=== PATIENT | male | born 1950 | race African-American/Black ===

== ENCOUNTER → 2016-10-04 10:04 | Outpatient (CLI) | payer MEDICARE, BC ==
[2016-08-16 08:43] VITALS: BMI 27.7
[~2016-10-04 10:04] MED LIST: BAYER CHEWABLE81 MG PO; COREG 3.1253.125 MG PO; COUMADIN5 MG PO; FOLBEE PLUS TAB1 TAB PO; HYDROCODONE-APA1 TAB PO; PACERONE200 MG PO; PLAVIX75 MG; RENVELA800 MG PO; SENSIPAR60 MG PO; ZOCOR40 MG PO
== END | disposition home or self-care (01) ==
LOC: D.US 10:04
DX: R22.1 Localized swelling, mass and lump, neck (principal)

== ENCOUNTER 2017-02-08 12:55 | Day surgery (SDC) | payer MEDICARE, BC ==
[~2017-02-08] VITALS: Ht 177.8 cm; Wt 84.1 kg
--- NOTE | ~2017-02-08 | OP ---
PATIENT NAME: COLTEN DENG MEDICAL RECORD: [id number] :48 LOCATION:D.OPS ADMISSION DATE: SURGEON: VITA ABRAMS DO DATE OF OPERATION: 02/08/2017 PROCEDURE: Colonoscopy. INDICATION FOR PROCEDURE: Hematochezia and hemorrhoids. SCOPE: Olympus video pediatric colonoscope. MEDICATIONS: Propofol 320 mg IV per anesthesia. WITHDRAWAL TIME: 6 minutes. ESTIMATED BLOOD LOSS: Zero. COMPLICATIONS: None. FINDINGS: Informed consent was given. The patient was made comfortable with the above medication. After reaching an adequate level of sedation by slow IV push, the patient was placed on his left side. A digital rectal examination was performed and was normal other than the findings of external hemorrhoids, which were not bleeding. The endoscope was then advanced under direct visualization through the anus to the cecum, with visualization of the appendiceal orifice and ileocecal valve. The scope was slowly withdrawn and the mucosa was carefully examined. Retroflexion was performed in the rectum. There was evidence of mild diverticulosis of the left side of the colon. There were no polyps, ulcerations, or other abnormalities within the mucosa. On retroflexion in the rectum, there were medium to large internal hemorrhoids, which were not bleeding and showed no bleeding stigmata. The endoscope was withdrawn from the patient. The patient tolerated the procedure well and there were no complications. IMPRESSION: 1. Left-sided mild diverticulosis involving the descending and sigmoid colon. 2. Internal and external hemorrhoids, which are not bleeding. PLAN AND RECOMMENDATIONS: 1. Discharge home when recovery parameters are met. 2. High fiber diet. 3. Continue current medications. 4. Consider surgical referral if the patient would like regarding the size of his hemorrhoids and occasional symptoms. 5. Recall colonoscopy in 5-7 years for colon cancer screening purposes. TRANSINT:[id number] Voice Confirmation ID: [id number] DOCUMENT ID: [id number] OPERATIVE REPORT [id number] COLTEN DENG VITA ABRAMS DO CC: [id number] DICTATION DATE: 02/08/17 1544 PLUG MACHINE OPERATOR: 02/09/17 0124 [facility] 02/08/17 [place] [address]
[2017-02-08 14:35] LABS: BASOPHILS 0.4 % (0-2); EOSINOPHILS 5.2 % (0-7); HEMATOCRIT 32.8 % (42.0-54.0); HEMOGLOBIN 10.4 g/dL (13.5-17.5); IMMATURE GRANULOCYTES 0.2 % (0-5); LYMPHOCYTES 16.6 % (15-50); MCH 33.4 pg (26.0-34.0); MCHC 31.7 g/dL (31.0-37.0); MCV 105.5 fL (80.0-100.0); MEAN PLATELET VOLUME 9.2 fL (7.4-10.4); MONOCYTES 7.8 % (2-11); NEUTROPHILS 69.8 % (40-80); RBC 3.11 10x6/uL (4.20-6.10); RDW 14.6 % (11.5-14.5); WBC 5.4 10x3/uL (4.8-10.8)
[2017-02-08 14:50] LABS: PLATELET COUNT 237 10x3/uL (130-400)
[2017-02-08 14:55] VITALS: BP 187/66; Ht 177.8 cm; Wt 84.1 kg
[2017-02-08 15:10] LABS: ANION GAP 15.4 mmol/L (8-16); CALCIUM 9.8 mg/dL (8.5-10.1); CARBON DIOXIDE 28.8 mmol/L (21.0-32.0); CREATININE - SERUM 6.8 mg/dL (0.6-1.3); POTASSIUM - SERUM 4.2 mmol/L (3.5-5.1)
--- NOTE | 2017-02-08 16:15 | NUR ---
1550-RECD TO ROOM FROM GI LAB. ALERT. IV PATENT TO HEMOSPLIT. RESP WITH EASE. 1600-FULL LIQUID RENAL TRAY SERVED. DAUGHTER THREW HEMOSPLIT CAP IN SHARPS CONTAINER. REPLACEMENT ORDERED.
--- NOTE | 2017-02-08 17:34 | NUR ---
1650-HEMOSPLIT FLUSHED WITH 1.8CC OF HEPARIN AND NEW BLUE CAP PLACED TO HEMOSPLIT. 1700-DISHCARGE INSTRUCTIONS REVIEWED. 1710-D/C HOME AMBULATORY PER REQUEST.
== END 2017-02-08 17:10 | disposition home or self-care (01) ==
LOC: D.OPS 12:55
PROVIDERS: Anesthesiology
DX: K57.30 Diverticulosis of large intestine without perforation or abscess without bleeding (principal); K64.8 Other hemorrhoids; K64.4 Residual hemorrhoidal skin tags

== ENCOUNTER 2017-03-01 20:00 | Emergency (ER) | payer MEDICARE, BC ==
[2017-02-08 14:55] VITALS: BMI 26.6
[2017-03-01 22:20] LABS: BASOPHILS 0.4 % (0-2); EOSINOPHILS 7.2 % (0-7); HEMATOCRIT 32.7 % (42.0-54.0); HEMOGLOBIN 10.2 g/dL (13.5-17.5); IMMATURE GRANULOCYTES 0.1 % (0-5); LYMPHOCYTES 20.3 % (15-50); MCHC 31.2 g/dL (31.0-37.0); MCV 105.8 fL (80.0-100.0); MONOCYTES 6.9 % (2-11); NEUTROPHILS 65.1 % (40-80); PLATELET COUNT 237 10x3/uL (130-400); RBC 3.09 10x6/uL (4.20-6.10); RDW 14.9 % (11.5-14.5); WBC 7.1 10x3/uL (4.8-10.8)
[2017-03-01 22:37] LABS: ALBUMIN 3.5 g/dL (3.4-5.0); ALKALINE PHOSPHATASE 63 U/L (46-116); ALT (SGPT) 14 U/L (10-68); CALC OSMOLALITY 276 mosm/kg (275-300); CALCIUM 9.3 mg/dL (8.5-10.1); CARBON DIOXIDE 27.8 mmol/L (21.0-32.0); CHLORIDE - SERUM 98 mmol/L (98-107); CREATININE - SERUM 7.7 mg/dL (0.6-1.3); GLUCOSE 84 mg/dL (74-106); POTASSIUM - SERUM 4.4 mmol/L (3.5-5.1); PROTEIN - SERUM 8.1 g/dL (6.4-8.2); SODIUM 137 mmol/L (136-145); UREA NITROGEN 24 mg/dL (7-18); eGFR NON AFRICAN AMERICAN 7 mL/min (90-120)
[2017-03-01 22:48] LABS: CHOLESTEROL, TOTAL 94 mg/dL (0-200); CKMB 0.7 U/L (0.0-3.6); CREATINE KINASE 60 UL (21-232); HDL CHOLESTEROL 46 mg/dL (32-96); LDL CHOLESTEROL 32 mg/dL (0-100); LDL-HDL RATIO 0.7 ratio (1.5-3.5); TRIGLYCERIDE 80 mg/dL (30-200); TROPONIN-I 0.019 ng/mL (0.000-0.060)
== END 2017-03-02 00:15 | disposition home or self-care (01) ==
LOC: D.ER 20:00
PROVIDERS: Emergency Medicine
DX: R07.9 Chest pain, unspecified (principal); R00.2 Palpitations; N18.6 End stage renal disease; Z99.2 Dependence on renal dialysis

== ENCOUNTER 2017-04-13 09:35 | Inpatient (IN) | payer MEDICARE, BC ==
[~2017-04-13] VITALS: Ht 177.8 cm; Wt 81.6 kg
--- NOTE | ~2017-04-13 | HP ---
PATIENT: COLTEN DENG MEDICAL RECORD: [id number] ACCOUNT: [id number] LOCATION:[facility]- : 48 ADMISSION DATE: 04/13/17 HISTORY AND PHYSICAL EXAMINATION He has a vascular rupture of his right upper extremity brachiobasilic transposed AV fistula. HISTORY OF PRESENT ILLNESS: This is a nice gentleman that had angioplasty of his dialysis access. He has a significant hematoma and swelling. I spoke with Dr. Dan about surgical intervention, which is being arranged. 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 REVIEW OF SYSTEMS: Pain related to his arm and swelling, but no chest pain, shortness of breath, nausea, vomiting or diarrhea. All other review of systems are negative. PAST MEDICAL HISTORY: 1. End-stage renal disease, on dialysis greater than 10 years with multiple dialysis access placements and interventions, currently with a right upper extremity transposed brachiobasilic AV fistula placed by Dr. Lowry. He was concerned about intervention today and requested that Colten go to [facility]. 2. Anemia of CKD. 3. Chronic back pain with degenerative joint disease without possible intervention, has seen multiple pain specialists, neurosurgeons and orthopedists. 4. Hyperphosphatemia. 5. Secondary hyperparathyroidism. 6. Right hand carpal tunnel release surgery. PAST SURGICAL HISTORY: As above. ALLERGIES: He does not recall any allergies, but we will confirm. SOCIAL HISTORY: No tobacco, alcohol or illicit drugs. He is , on dialysis 3 days a week. PHYSICAL EXAMINATION: VITAL SIGNS: Blood pressure 142/72, 72 heart rate, 18 respiratory rate. GENERAL: He is alert and oriented times 3. HEENT: Normocephalic, atraumatic. Clear nares. Clear throat. No JVD or thyromegaly. EXTREMITIES: Right upper extremity edema to his hands, but no focal deficit. ABDOMEN: Nontender. No lower extremity edema. NEUROLOGIC: No focal neurological deficits with cranial nerves II through XII intact. LABORATORY DATA: Pending BMP, CBC, phosphorus and INR. ASSESSMENT AND PLAN: 1. Vascular complication of his arteriovenous fistula. Dr. Dan is being consulted for vascular intervention at Colten' request. He did not wish to attend [facility]. His is here in town, is out of town at this time. 2. End-stage renal disease. We will continue his dialysis. 3. Hyperphosphatemia. We will follow his phosphorus. HISTORY AND PHYSICAL [id number] COLTEN DENG 4. Chronic degenerative joint pain and back pain. PLAN: Please see orders. TRANSINT:[id number] Voice Confirmation ID: [id number] DOCUMENT ID: [id number] DAJA FENG MD CC: [id number] DICTATION DATE: 04/13/17916 SIZING MACHINE TENDER: 04/13/17 1138 ADM IN [facility] [address] [id number]
[2017-04-13 11:14] LABS: BASOPHILS 0.2 % (0-2); HEMATOCRIT 25.5 % (42.0-54.0); HEMOGLOBIN 7.8 g/dL (13.5-17.5); IMMATURE GRANULOCYTES 0.1 % (0-5); MCH 32.1 pg (26.0-34.0); MCHC 30.6 g/dL (31.0-37.0); MCV 104.9 fL (80.0-100.0); MEAN PLATELET VOLUME 9.4 fL (7.4-10.4); MONOCYTES 4.6 % (2-11); NEUTROPHILS 68.1 % (40-80); PLATELET COUNT 237 10x3/uL (130-400); RBC 2.43 10x6/uL (4.20-6.10); RDW 14.9 % (11.5-14.5)
[2017-04-13 11:29] LABS: ANION GAP 18.3 mmol/L (8-16); APTT 38.9 SECONDS (22.8-39.4); CARBON DIOXIDE 27.2 mmol/L (21.0-32.0); CREATININE - SERUM 8.3 mg/dL (0.6-1.3); INR 1.1 (0.85-1.17); POTASSIUM - SERUM 4.5 mmol/L (3.5-5.1); PROTIME 14.1 SECONDS (11.6-15.0)
--- NOTE | 2017-04-13 14:40 | NUR ---
TRANSFER FROM OP BY W/C. OREINTED TO ROOM. CALL LIGHT IN REACH. WILL CONT. PLAN OF CARE.
--- NOTE | 2017-04-13 14:53 | NUR ---
LEAVING FOR DIALYSIS BY W/C.
[2017-04-13 15:18] VITALS: BP 176/62; BMI 25.8
--- NOTE | 2017-04-13 19:00 | NUR ---
CONSENTS SIGNED FOR SURGERY IN AM.
--- NOTE | 2017-04-13 19:30 | NUR ---
REPORT RECEIVED AND CARE ASSUMED. SITTING IN CHAIR AT BEDSIDE. ASSESSMENT COMPLETED PER FLOW SHEET. CALL LIGHT IN EASY REACH.
[2017-04-13 20:00] VITALS: BP 149/96
--- NOTE | 2017-04-13 22:45 | NUR ---
RIGHT INFUSAPORT ACCESSED WITH #[id number] NI NEEDLE PER DIANNA LOUISE RN.
--- NOTE | 2017-04-13 22:58 | NUR ---
NORCO 10/325 MG PO GIVEN FOR LEFT SIDE AND RIGHT ARM PAIN AT LEVEL #8.
[2017-04-14] VITALS: BP 139/52
[2017-04-14 04:00] VITALS: BP 130/76
--- NOTE | 2017-04-14 07:28 | NUR ---
0715- GAVE PT PRE-OP MEDICATIONS ORDERED WITH SIP OF WATER. PT STATES HE HAS NOT HAD ANYTHING TO EAT OR DRINK SINCE MIDNIGHT. WILL AWAIT SURGERY TO GET PT AND CONTINUE TO MONITOR. 0729- PT TO OR VIA BED.
[2017-04-14 10:49] VITALS: Ht 177.8 cm; Wt 81.6 kg
--- NOTE | 2017-04-14 11:13 | NUR ---
PT BACK FROM OR VIA BED. RECEIVED REPORT FROM EDWIN IN OR. PTS RIGHT ARM (WHERE AVF IS) IS ELEVATED ORDERED BY DR. CHUNG (PER EDWIN). CLEAN, DRY, AND INTACT DRESSING SEEN TO RIGHT ARM. PT DENIES ANY PAIN AT CURRENT TIME. BED IS IN LOW POSITION AND CALL LIGHT IS IN REACH, DENILSON BURNS IS IN PTS ROOM NOW GETTTING VITAL SIGNS. WILL CONTINUE TO MONITOR.
[2017-04-14 12:39] VITALS: BP 97/74
[2017-04-14 14:01] LABS: BASOPHILS 0.4 % (0-2); HEMATOCRIT 26.9 % (42.0-54.0); HEMOGLOBIN 8.6 g/dL (13.5-17.5); IMMATURE GRANULOCYTES 0.1 % (0-5); LYMPHOCYTES 12.8 % (15-50); MCH 31.9 pg (26.0-34.0); MEAN PLATELET VOLUME 8.7 fL (7.4-10.4); MONOCYTES 5.3 % (2-11); NEUTROPHILS 73.4 % (40-80); RDW 16.4 % (11.5-14.5); WBC 7.3 10x3/uL (4.8-10.8)
[2017-04-14 14:09] LABS: MCV 99.6 fL (80.0-100.0); PLATELET COUNT 167 10x3/uL (130-400)
[2017-04-14 14:11] LABS: CALCIUM 9.1 mg/dL (8.5-10.1); CARBON DIOXIDE 28.3 mmol/L (21.0-32.0); POTASSIUM - SERUM 4.3 mmol/L (3.5-5.1)
[2017-04-14 15:46] VITALS: BP 126/73
--- NOTE | 2017-04-14 18:28 | NUR ---
PT IS CURRENTLY SITTING UP IN BED WITH EYES OPEN RESTING. PER BIPIN MONTENEGRO PT IS REQUESTING SOMETHING FOR PAIN. RIGHT ARM IS ELEVATED ON PILLOWS. WILL SEE WHAT PT HAS FOR PAIN AND CONTINUE TO MONITOR.
[2017-04-14 20:00] VITALS: BP 158/37
[2017-04-15] VITALS: BP 114/37
--- NOTE | 2017-04-15 00:29 | NUR ---
VSS. PT DENIES ANY DISCOMFORT AT THIS TIME. WILL CONTINUE TO MONITIOR.
--- NOTE | 2017-04-15 01:18 | NUR ---
PALPABLE R RADIAL PULSE. PT DENIES ANY DISCOMFORT AT THIS TIME.
--- NOTE | 2017-04-15 03:31 | NUR ---
PT RESTING WITH EYES CLOSED. RESP EVEN AND REGULAR. SR UP X2,CALL LIGHT WITHIN REACH.
[2017-04-15 04:00] VITALS: BP 83/56
--- NOTE | 2017-04-15 06:14 | NUR ---
VSS. PT STATED BUPRENEX ALLEVIATED R ARM PAIN AND NORCO HELPED SORE THROAT. PALPABLE R RADIAL PULSE. NEEDS MET; WILL CONTINUE TO MONITOR.
[2017-04-15 06:52] LABS: BASOPHILS 0.3 % (0-2); EOSINOPHILS 11.6 % (0-7); HEMATOCRIT 23.9 % (42.0-54.0); IMMATURE GRANULOCYTES 0.2 % (0-5); LYMPHOCYTES 14.2 % (15-50); MCH 30.8 pg (26.0-34.0); MCV 99.6 fL (80.0-100.0); MEAN PLATELET VOLUME 9.2 fL (7.4-10.4); MONOCYTES 6.1 % (2-11); NEUTROPHILS 67.6 % (40-80); PLATELET COUNT 178 10x3/uL (130-400); RDW 15.9 % (11.5-14.5); WBC 5.8 10x3/uL (4.8-10.8)
[2017-04-15 06:53] LABS: HEMOGLOBIN 7.4 g/dL (13.5-17.5)
[2017-04-15 07:07] LABS: CALCIUM 9.1 mg/dL (8.5-10.1); CARBON DIOXIDE 27.7 mmol/L (21.0-32.0); CREATININE - SERUM 9.8 mg/dL (0.6-1.3); POTASSIUM - SERUM 4.7 mmol/L (3.5-5.1); THYROID STIMULATING HORMONE 1.12 uIU/mL (0.36-3.74)
--- NOTE | 2017-04-15 07:41 | NUR ---
0715-AM ROUNDING DONE WITH PATIENT ASLEEP IN THE CHAIR. AROUSES EASILY WHEN I WALK IN. DENIES NEEDS AT PRESENT TIME. ON ROOM AIR. LEFT CHEST HEMIPSILT SEEN ALONG WITH RIGHT IP. BOTH ARE SALINE LOCK. WILL CPOC.
[2017-04-15 08:55] VITALS: BP 158/55
--- NOTE | 2017-04-15 09:03 | OP ---
PATIENT NAME: COLTEN DENG MEDICAL RECORD: [id number] :48 LOCATION:D.M2 D.2111 ADMISSION DATE:04/13/17 SURGEON: DELANEY CLEVELAND MD DATE OF OPERATION: 04/14/2017 PREOPERATIVE DIAGNOSES: Dialysis access failure with other mechanical complication of right arm brachial artery to translocated basilic vein AV fistula, with a recent vascular rupture at the site of balloon dilatation of a swing segment stenosis, with subsequent development of a very large pseudoaneurysm and extensive edema of the upper extremity. OPERATION PERFORMED: Percutaneous ultrasound directed guidance with access with micropuncture technique and performance of a fistulogram followed by ligation of AV fistula. SURGEON: Delaney Cleveland MD ANESTHESIA: General per EVIDENCE SPECIALIST with LMA. REFERRING PHYSICIAN: Daja Singh MD. PREOPERATIVE NOTE: Mr. Deng is a 67-year-old male from [place], who has had numerous dialysis access operations and failures, several on the left side and then more recently, I believe in October of this year, he had a brachiobasilic AV fistula created over at [facility] by Dr. Lowry and then later in the year, I believe in January, a translocation operation was performed with elevation of the basilic vein into the immediately subcutaneous level just beneath the long medial arm incision. That fistula has not yet been utilized for dialysis as it was slow to mature and he is dialyzing still with a tunneled central catheter, presently with a TVC via the left internal jugular vein. A couple of weeks ago, he had a fistulogram at [facility] and was found to have a severe swing segment stenosis, which was dilated and subsequently, he developed a large pseudoaneurysm in his arm and extensive swelling in the upper extremity. He had a fistulogram repeated yesterday by Dr. Singh, who found a very large pseudoaneurysm and due to the angulation, was unable to cross the origin of the PA with a wire in order to be able to place a stent. He was admitted to the hospital and I was consulted. He is brought back to the operating room at this time to see if I can cross the area of stenosis at the mouth of the pseudoaneurysm using a guidewire and catheter from an arm approach and if that is not possible, then perhaps from a femoral approach. Then, possibly the fistula might be salvaged by stenting with a covered stent to close the pseudoaneurysm. If not, I consider the patient a pretty high risk for severe hemorrhage with open operative attempt to revise the fistula with repair of the pseudoaneurysm and so I would plan to ligate it. Under anesthesia, the patient was placed in supine position, prepped and draped in a sterile manner. The arm was examined with ultrasound and the course of the vein identified just beneath the incision scar. I accessed the fistula just above yesterday's puncture site directing a micropuncture needle medially or proximally and placed a 4-Niuean cannula and performed a fistulogram and had very little actual visualization of the central veins and difficulty in seeing the exact anatomy of the neck of the pseudoaneurysm. I exchanged for a 6-Niuean introducer and repeated contrast injections with digital subtraction better demonstrated the pseudoaneurysm neck. I was unable to cross it initially with an angled glide catheter and Glidewire, but was successful in crossing it with OPERATIVE REPORT [id number] COLTEN DENG an angled Glidewire with a [employer] guiding catheter. Contrast injection then medially demonstrated mild stenosis without hemodynamic significance of the right brachiocephalic vein. There is a venous access port in placed on the right with that catheter in the right atrium and the patient's left internal jugular tunneled dialysis catheter is positioned suboptimally with its tip really in the superior vena cava just proximal to the confluence of the brachiocephalic veins. I then measured the required length of any stent, which will be use to close the pseudoaneurysm and the diameter of the vein proximally and distally and found that really we did not have in stock a PTFE covered stent of suitable dimensions and the decision was made to ligate the fistula. I accessed it then again percutaneously from a more medial site directing the micropuncture needle distally or retrograde in the fistula and inserted another 6-Niuean introducer and then passed a guidewire distally through the fistula and arterial anastomosis into the brachial artery and right radial artery. I then inserted a glide catheter and performed a pullback angiogram to better precisely locate the position of the arterial anastomosis. When I was accomplished, I inserted a 6-mm diameter angioplasty balloon, which was 2 cm in length, inflated it just above the arterial anastomosis and with a stopcock device kept the balloon inflated to occlude the fistula. This resulted immediately and reduced pressure in the pseudoaneurysm. I then made an incision through yesterday's puncture site and through today's first puncture site and exposed the underlying vein and inflated the balloon within it. I ligated the vein doubly with 0 silk after deflating and removing the balloon catheter. All the hardware was then removed and in stable condition with good arterial flow in the right arm. The patient's wound was closed with interrupted inverted simple 3-0 Vicryl sutures and a sterile dressing applied and he was awakened and taken to the recovery room in stable condition. It is certainly unfortunate that this man, who has had such difficulties with dialysis access, had to lose his fistula really before it could be even used. I believe that he still a candidate for upper extremity access and would consider him for placement of a HeRO outflow device via the left internal jugular vein, removing the suboptimally positioned left internal jugular tunneled dialysis catheter. I would plan to use an Acuseal early stick PTFE graft so that there would be no need for bridging catheter. I think the patient probably will need to rest for at least a few days before being ready to return to the operating room. In the meantime, we are going to have him elevate his arm higher than the level of his heart whenever possible, probably on pillows when he is reclining and will be using local heat to help resolution of his hemorrhage and edema. Blood loss during the operation was only about 5 cc, none was replaced intraoperatively. All sponges, instruments and needles were accounted for. No drain was used and no surgical specimen was submitted for histopathology. TRANSINT:[id number] Voice Confirmation ID: [id number] DOCUMENT ID: [id number] DELANEY CLEVELAND MD at 0903 CC: DAJA SINGH MD [id number] DICTATION DATE: 04/14/17 112 NEW CAR INSPECTOR: 04/14/172111 ADM IN [facility] [address] [place] [address]
--- NOTE | 2017-04-15 12:56 | NUR ---
TO DIALYSIS VIA BED.
--- NOTE | 2017-04-15 14:38 | NUR ---
STILL IN DIALYSIS.
[2017-04-15 14:39] VITALS: BP 182/85
--- NOTE | 2017-04-15 15:28 | NUR ---
1520-RETURNS FROM DIALYSIS.
[2017-04-15 20:00] VITALS: BP 155/60
--- NOTE | 2017-04-15 23:27 | NUR ---
INITIAL ROUNDS COMPETED AT 1914 HRS. PT RESTING WITHEYES CLOSED. RESP EVEN AND REGULAR. ASSESSMENT COMPLETED AT 1944 HRS. VSS. L CHEST HEMOSPIT CLEAN,DRY AND INTACT. R CHEST INFUSAPORT SL. LUNGS DIMINISHED IN BASES BILAT. R ARM SWOLLEN AND TIGHT. PALPABLE R RADIAL PULSE. DRESSING TO INNER R UPPER ARM CLEAN, DRY AND INTACT. PM MEDS GIVEN INCLUDING PERCOCET AT 5 HRS. PT STATED ALTER TAHT THE PERCOCET DID NOT TOUCH HIS PAIN AND IT WAS NOW 8/10. BUPRENEX 0.2MG SIVP TO R INFUSAPORT GIVNE AT 2240 HRS. PT CURRENTLY STATES PAIN LEVEL NOW 4/10. WILL CONTINUE TO MONITOR. SR UP X2, CALL LIGHT WITHIN REACH.
[2017-04-16] VITALS: BP 132/40
--- NOTE | 2017-04-16 02:42 | NUR ---
PT SITTING ON SIDE OF BED. DENIES ANY DISCOMFORT. WILL CONTINUE TO MONITOR.
[2017-04-16 04:00] VITALS: BP 165/85
--- NOTE | 2017-04-16 04:50 | NUR ---
PT RESTING WITH EYES CLOSED. RESP EVEN AND REGULAR. SR UP X2, CALL LIGHT WITHIN REACH.
--- NOTE | 2017-04-16 06:02 | NUR ---
VSS THROUGHOTU NGT. PT STATED BUPRENEX HELPED R ARM PAIN. NEEDS MET; WILL CONTINUE TO MONTIOR.
[2017-04-16 06:08] LABS: BASOPHILS 0.3 % (0-2); EOSINOPHILS 12.9 % (0-7); HEMATOCRIT 26.2 % (42.0-54.0); HEMOGLOBIN 8.3 g/dL (13.5-17.5); IMMATURE GRANULOCYTES 0.2 % (0-5); LYMPHOCYTES 15.5 % (15-50); MCH 31.3 pg (26.0-34.0); MCHC 31.7 g/dL (31.0-37.0); MCV 98.9 fL (80.0-100.0); MEAN PLATELET VOLUME 9.3 fL (7.4-10.4); MONOCYTES 5.3 % (2-11); NEUTROPHILS 65.8 % (40-80); PLATELET COUNT 196 10x3/uL (130-400); RBC 2.65 10x6/uL (4.20-6.10); RDW 15.8 % (11.5-14.5); WBC 6.1 10x3/uL (4.8-10.8)
[2017-04-16 06:53] LABS: ANION GAP 11.2 mmol/L (8-16); CALCIUM 9.2 mg/dL (8.5-10.1); CARBON DIOXIDE 30.1 mmol/L (21.0-32.0); CREATININE - SERUM 9.2 mg/dL (0.6-1.3); POTASSIUM - SERUM 4.3 mmol/L (3.5-5.1)
--- NOTE | 2017-04-16 07:20 | NUR ---
AM ROUNDING DONE WITH PATIENT SITTING ON SIDE OF BED, DENIES NEEDS AT THIS TIME. REPORTS THAT HE SLEPT "FAIRLY WELL". LEFT HEMISPLIT SEEN WITH C/D/I DRESSING, RIGHT IP SEEN SALINE LOCK WITH C/D/I DRESSING. RIGHT ARM IS STILL WITH 3+ EDEMA. WILL CPOC.
[2017-04-16 08:00] VITALS: BP 184/99
--- NOTE | 2017-04-16 10:42 | NUR ---
WATCHING TV, DENIES NEEDS AT PRESENT TIME. WILL CONTINUE TO MONITOR AND ASSESS FOR ANY NEEDS.
[2017-04-16] MEDS ORDERED: SYNTHROID50 MCG PO (10:50)
[2017-04-16] MEDS ORDERED: PERCOCET 10/3251 TA1 PO (10:51)
[2017-04-16 12:00] VITALS: BP 189/74
--- NOTE | 2017-04-16 12:44 | NUR ---
WRITTEN SCRIPT FOR PERCOCET 10/325 MG # 20 GIVEN TO PATIENT WITH NO REFILLS.
--- NOTE | 2017-04-16 14:31 | NUR ---
SALINE FLUSH OF 10 CC THEN HEPARIN FLUSH FOR IP OF 3CC DONE. NI NEEDLE REMOVED FROM IP, CLEAN 2 X 2 AND OPSITE PLACED OVER IP. VERBAL AND WRITTEN DISCHARGE INSTRUCTIONS GIVEN TO PATIENT. DISCARGED HOME VIA WHEELCHAIR.
== END 2017-04-16 14:33 | disposition home or self-care (01) | DRG 252 ==
LOC: D.M2 09:35 → D.SDCHOLD 09:35 → D.M2 14:38
PROVIDERS: Internal Medicine; Surgery; ADMIT Internal Medicine Nephrology
PROC: B51W1ZZ Fluoroscopy of Dialysis Shunt/Fistula using Low Osmolar Contrast (ICD-10-PCS; 2017-04-14)
PROC: 05L Upper Veins, Occlusion (ICD-10-PCS; principal; 2017-04-14 08:00)
PROC: 05L Upper Veins, Occlusion (ICD-10-PCS; 2017-04-14 08:00)
DX: T82.858A Stenosis of other vascular prosthetic devices, implants and grafts, initial encounter (principal); N18.6 End stage renal disease; I12.0 Hypertensive chronic kidney disease with stage 5 chronic kidney disease or end stage renal disease; N25.81 Secondary hyperparathyroidism of renal origin; T82.398A Other mechanical complication of other vascular grafts, initial encounter; E03.9 Hypothyroidism, unspecified; Z99.2 Dependence on renal dialysis; D63.1 Anemia in chronic kidney disease; Z95.1 Presence of aortocoronary bypass graft; I48.2 Chronic atrial fibrillation; M19.90 Unspecified osteoarthritis, unspecified site

== ENCOUNTER 2017-05-02 07:52 | Outpatient (CLI) | payer MEDICARE, BC ==
[~2017-05-02] VITALS: Ht 177.8 cm; Wt 81.8 kg
--- NOTE | ~2017-05-02 | HEMODYNAMI ---
PATIENT:COLTEN DENG MEDICAL RECORD: [id number] : 48 LOCATION:[facility] ADMISSION DATE: 05/02/17 Generatedon:05/02/201711:16 Patient name: COLTEN DENG Patient #: [id number] SSN: [id number] : 1950 Date of study: 05/02/2017 Page: Of Hemodynamic Procedure Report Patient Data Patient Demographics Procedure consent was obtained First Name: COLTEN Gender: Male Last Name: SOWMYA : 1950 [facility] Initial: TORRI Age: 67 year(s) Patient #: [id number] Race: Black SSN: [id number] Additional ID: [id number] Contact details Address: [facility] [place] [id number] State: [place] City: [place] Zip code: [address] Past Medical History Allergies Allergen Reaction Date Comments Reported Penicillins 08/16/2016 Admission Admission Data Admission Date: 05/02/2017 Admission Time: 7:52 Procedure Procedure Types Cath Procedure Diagnostic Procedure LHC LHC w/Coronaries w/Grafts PCI Procedure Coronary Stent Initial Miscellaneous Procedures Moderate Sedation up to 15 minutes Procedure Description Procedure Date Procedure Date: 05/02/2017 Procedure Start Time: 10:58 Procedure End Time: 11:14 Procedure Staff Name Function Lucian Ortiz MD Performing Physician Dano Jiménez RN Nurse Ana Tang RT Monitor Jermaine Doll RT Scrub Procedure Data Cath Procedure Fluoroscopy Diagnostic fluoroscopy Total fluoroscopy Time: 3.9 time: 3.9 min min Diagnostic fluoroscopy Total fluoroscopy dose: 713 dose: 713 mGy mGy Contrast Material Contrast Material Type Amount (ml) Isovue 300 114 Entry Location Entry Primary Successful Side Size Upsize Upsize Entry Closure Succes sful Closure Location (Fr) 1 (Fr) 2 (Fr) Remarks Device Remarks Femoral Right 5 Fr 6 Fr Exoseal artery Short Estimated blood loss: 10 ml Diagnostic catheters Device Type Used For End Catheter Placement Cordis 5Fr Pigtail LV Angiography Catheter (MP) Cordis 5Fr 3DRC Catheter Procedure (MP) Cordis 5Fr JL 4.0 Procedure Catheter (MP) Procedure Complications No complications Procedure Medications Medication Administration Route Dosage Oxygen NC 2 l/min Heparin Flush Bag added to field 2 bags (1000units/500ml NS) 0.9% NaCl I.V. 100 ml/hr Fentanyl I.V. 50 mcg Versed I.V. 1 mg Fentanyl I.V. 50 mcg Versed I.V. 1 mg Heparin Bolus I.V. 4000 units Hemodynamics Rest Heart Rate: 76 (bpm) Snapshots Pre Cath Intra NCS Post Cath Vital Signs Time Heart Resp SPO2 NIBP (mmHg) Rhythm Pain Sedation Rate (ipm) (%) Status Level (bpm) 10:50:35 73 20 100 223/116(172) NSR 0 (11) 10(A) , No pain 11:00:13 72 17 100 241/83(151) NSR 0 (11) 9(A) , No pain 11:06:28 70 16 100 234/98(180) NSR 0 (11) 9(A) , No pain 11:14:54 75 18 100 242/103(148) NSR 0 (11) 9(A) , No pain Medications Time Medication Route Dose Verified Delivered Reason Notes Effectiveness by by 10:48:57 Oxygen NC 2 Dano Lindquisty Per physician l/min Tino Jiménez RN RN 10:49:06 Heparin Flush added 2 Dano Dano used for Bag to bags Tino Jiménez RN procedure (1000units/500ml field RN NS) 10:49:14 0.9% NaCl I.V. 100 Dano Dano Per physician ml/hr Tino Jiménez RN RN 10:57:06 Fentanyl I.V. 50 Dano Dano for sedation mcg Tino Jiménez RN RN 10:57:12 Versed I.V. 1 mg Dano Dano for sedation Tino Jiménez RN RN 10:59:07 Fentanyl I.V. 50 Dano Dano for sedation mcg Tino Jiménez RN RN 10:59:09 Versed I.V. 1 mg Dano Dano for sedation Tino Jiménez RN RN 11:06:12 Heparin Bolus I.V. 4000 Dano Dano for units Tino Jiménez RN anticoagulation teletypist Log Time Note 10:15:40 Dano Jiménez RN sent for patient. Start room use. 10:25:41 Time tracking: Regular hours 10:25:44 Plan of Care:Hemodynamics will remain stable., Cardiac rhythm will remain stable., Comfort level will be maintained., Respiratory function will remain adequate., Patient/ family verbilizes understanding of procedure., Procedure tolerated without complication., Recovers from procedure without complications.. 10:32:30 Patient received from Pre/Post Procedure Room to CCL 2 Alert and oriented. Tansferred to table in Supine position. 10:40:28 Warm blankets applied, and jessie hugger turned on for patient comfort. 10:40:29 Correct patient and procedure confirmed by team. 10:41:33 H&P Date Dictated: 04/25/2017 Within 30 days and on chart., H&P Addendum completed by physician on day of procedure. (MUST COMPLETE FOR ALL OUTPATIENTS). 10:41:36 Pre-procedure instructions explained to patient. 10:41:38 Family in waiting room. 10:41:40 Patient NPO since Midnight. 10:41:59 Is patient on blood thinner?Yes 10:42:02 ACC The patient was administered the following blood thiners within the last 24 hours: ACCPlavix 10:44:40 Signed procedure consent form obtained from patient. 10:44:41 ECG and BP/O2 sat monitors applied to patient. 10:47:56 Vital chart was started 10:48:57 Oxygen 2 l/min NC was administered by Dano Jiménez RN; Per physician; 10:49:06 Heparin Flush Bag (1000units/500ml NS) 2 bags added to field was administered by Dano Jiménez RN; used for procedure; 10:49:14 0.9% NaCl 100 ml/hr I.V. was administered by Dano Jiménez RN; Per physician; 10:49:37 Baseline sample Acquired. 10:49:40 Full Disclosure recording started 10:49:52 Patient diabetic? No. 10:49:58 Snore? Yes 10:50:00 Sleep apnea? Yes 10:50:07 Dentures? No ? 10:50:36 IV patent on arrival in Lt subclavian with 0.9% NaCl at O. 10:50:43 Lab results completed and on chart. 10:50:46 Right groin area was prepped with chlora-prep and draped in sterile fashion 10:50:47 Alarms reviewed by RSher N. 10:50:48 Sharps counted by scrub and verified by R.N. 10:50:49 Physician paged 10:53:24 Physician arrived 10:53:27 --------ALL STOP TIME OUT------ 10:53:28 Final Timeout: patient, procedure, and site verified with staff and physician. All members of the team are in agreement. 10:53:30 Right groin site verified by team. 10:53:35 Sedation plan: IV Moderate Sedation Versed, Fentanyl 10:57:06 Fentanyl 50 mcg I.V. was administered by Dano Jiménez RN; for sedation; 10:57:12 Versed 1 mg I.V. was administered by Dano Jiménez RN; for sedation; 10:58:17 Vital chart was stopped 10:58:17 Vital chart was started 10:58:46 Procedure started. 10:58:50 Local anesthetic to right femoral artery with Lidocaine 2% by Lucian Ortiz MD.INITIAL ACCESS ONLY 10:58:55 Use device set Femoral Dx 10:59:07 Fentanyl 50 mcg I.V. was administered by Dano Jiménez RN; for sedation; 10:59:09 Versed 1 mg I.V. was administered by Dano Jiménez RN; for sedation; 10:59:11 A 5 Fr sheath was inserted into the Right Femoral artery 10:59:16 Zero performed for pressure channel P1 10:59:21 Zero performed for pressure channel P1 11:02:21 Acist Syringe opened to sterile field. 11:02:21 Bag Decanter opened to sterile field. 11:02:22 Medline Cath Pack opened to sterile field. 11:02:22 Terumo 5Fr [place] Sheath opened to sterile field. 11:02:22 St Dereck 260cm J .035 wire opened to sterile field. 11:02:24 Acist Hand Control opened to sterile field. 11:02:24 Acist Manifold opened to sterile field. 11:02:25 Diagnostic Infinity 5Fr Multipack catheter opened to sterile field. 11:02:25 Tegaderm 4 x 4 opened to sterile field. 11:02:32 A Cordis 5Fr Pigtail Catheter (MP) was advanced over the wire and used for LV Angiography. 11:02:41 EF : 35 % 11:02:44 Catheter removed. 11:03:00 A Cordis 5Fr JL 4.0 Catheter (MP) was advanced over the wire and used for Procedure. 11:03:12 A Cordis 5Fr 3DRC Catheter (MP) was advanced over the wire and used for Procedure. 11:03:22 ACKERMAN to LAD angiography performed. 11:03:24 RCA angiography performed. 11:03:30 SVG to RCA angiography performed. 11:03:49 SVG to Circ angiography performed. 11:04:09 Catheter removed. 11:05:23 Proceeding to intervention. 11:06:12 Heparin Bolus 4000 units I.V. was administered by Dano Jiménez RN; for anticoagulation; 11:06:40 Guidetronic Launcher 6Fr AR 1.0 guide catheter opened to sterile field. 11:06:40 Terumo 6Fr [place] Sheath opened to sterile field. 11:06:40 Deposco BasixCompak Inflation Kit opened to sterile field. 11:06:41 Willis Whisper J 300cm 0.014 guide wire opened to sterile field. 11:06:52 Sheath upsized to a 6 Fr Short. 11:07:05 6 Fr ar1 guide catheter was inserted over the wire 11:07:07 Wire advanced across lesion. 11:09:21 Inflation number: 1 The stent balloon was then re-inflated across the Aorta Left -> Prox CX to 17 HUMBERTO for 0:10 (min:sec). 11:11:51 Cordis 6Fr Exoseal opened to sterile field. 11:11:54 Stent catheter was removed intact over wire. 11:11:55 Wire removed. 11:11:56 Guide catheter removed. 11:12:10 Sheath removed intact; hemostasis achieved with Exoseal to the Right Femoral artery. 11:12:14 Procedure ended.(Physican Out) 11:12:47 Fluoroscopy time 03.90 minutes. 11:12:52 Fluoroscopy dose: 713 mGy 11:12:52 Flurop Dose total: 713 11:12:59 Contrast amount:Isovue 300 114ml. 11:13:01 Sharps counted by scrub and verified by R.N. 11:13:03 Insertion/operative site no bleeding no hematoma. 11:13:06 Post Procedure Pulses reassessed and unchanged 11:13:10 Post procedure rhythm: unchanged. 11:13:13 Vital chart was stopped 11:13:14 Vital chart was started 11:13:15 Estimated blood loss: 10 ml 11:13:16 Post procedure instruction explained to patient.Patient verbalizes understanding. 11:13:32 Procedure type changed to Cath procedure, Diagnostic procedure, LHC, LHC w/Coronaries w/Grafts, PCI procedure, Coronary Stent Initial, Miscellaneous Procedures, Moderate Sedation up to 15 minutes 11:13:33 Procedure and supply charges have been captured, reviewed, submitted and are correct. 11:13:54 Procedure Complication : No complications 11:13:58 See physician's report for complete and final results. 11:14:01 Report given to Pre/Post Procedure Room. 11:14:05 Patient transfered to Pre/Post Procedure Room with Stretcher. 11:14:08 Procedure ended. 11:14:08 Full Disclosure recording stopped 11:14:10 End room use (Document Last) 11:16:10 Vital chart was stopped Intervention Summary Intervention Notes Time ActionType Lesion and Equipment Action# Pressure Duration Attributes Used 11:09:21 Reinflate Aorta Left [place] OTW 1 17 00:10 stent -> Prox CX 4.0 x 22 balloon stent Device Usage Item Name Manufacture Quantity Catalog Hospital Part Current Minima l Lot# / Number Charge Number Stock Stock Serial# Code Acist Acist 1 36927 249383 011748 143552 20 Syringe Medical Systems Inc Bag Microtek 1 2002S 417277 64616 857508 5 Wipit [employer] Inc. Medline Cardinal 1 [id number] 406863 21928 886878 5 Cath Pack Health Terumo 5Fr Terumo 1 [id number] 015572 514013 410296 [address] St Dereck 1 [id number] 421542 769330 094225 30 260cm J .035 wire Acist Hand Acist 1 21962 281036 314013 921497 5 Control Medical Systems Inc Acist Acist 1 96252 718630 060412 962869 5 Manifold Medical Systems Inc Diagnostic Cardinal 1 [id number] 737371 63328 707733 30 Micropoint Technologiesity Lagiar 5Fr Multipack catheter Tegaderm 4 3M 1 1626W 946946 346039 575207 5 x 4 Cordis 5Fr Cardinal 1 082598 5 Pigtail Health Catheter (MP) Cordis 5Fr Cardinal 1 706936 5 3DRC Health Catheter (MP) Cordis 5Fr Cardinal 1 283238 5 JL 4.0 Health Catheter (MP) Medtronic Medtronic 1 [id number] 362064 17275 705060 1 Launcher 6Fr AR 1.0 guide catheter Terumo 6Fr Terumo 1 [id number] 694607 790368 770722 40 [place] Sheath Merit Merit 1 QN6534 185809 781691 444888 15 NetScientific Medical Inflation Kit Willis Willis 1 [id number] 323629 028000 847374 5 Whisper J Vascular 300cm 0.014 guide wire [place] OTW Medtronic 1 [id number] 555791 5058765 591347 5 [id number] 4.0 x 22 stent Cordis 6Fr Cardinal 1 EX600 888361 488763 813942 10 [facility] Signature Audit Varney Stage Time Signature Unsigned Intra-Procedure 05/02/2017 Ana Tang 11:16:06 AM RT(R) Signatures Monitor : Ana Tang Signature : RT Date : Time : [place] [address] [place] [address]
--- NOTE | ~2017-05-02 | OP ---
PATIENT NAME: COLTEN DENG MEDICAL RECORD: [id number] :48 LOCATION:D.CAT ADMISSION DATE: SURGEON: EMY MONTES DE OCA MD DATE OF OPERATION: 05/02/2017 PROCEDURES: 1. PTCA stent vein graft to the left circumflex. 2. Left heart catheterization. 3. Selective coronary angiography. 4. Vein graft angiography. 5. ACKERMAN angiography. 6. Left ventriculogram. INDICATION: Angina and coronary artery disease. PROCEDURE IN DETAIL: After informed consent was obtained and after a detailed explanation of the risks, benefits as well as alternative therapies, the patient elected to proceed with angiogram and angioplasty. The right femoral area was prepped and draped in normal sterile fashion. The right femoral artery was cannulated via modified Seldinger technique with placement of 6-Bengali sheath. All catheters were exchanged through this sheath. FINDINGS: The left ventriculogram was performed in the standard 30-degree ENGLISH view, reveals anteroapical hypokinesis, ejection fraction 35% to 40%. SELECTIVE CORONARY ANGIOGRAPHY: 1. Left main showed no significant angiographic disease. 2. Left anterior descending is totally occluded. 3. Left circumflex is totally occluded. 4. Right coronary is totally occluded. 5. ACKERMAN to the LAD is widely patent. Distal LAD is widely patent. 6. The vein graft to the circumflex is widely patent; however, there is a previously placed stent with 80% in-stent restenosis in the mid shaft. 7. The vein graft to the right coronary is widely patent. Distal right coronary is widely patent. PTCA STENT OF THE VEIN GRAFT TO THE CIRCUMFLEX: The stent used is a 4.0 x 22 mm [place] taken to 19 atmospheres. Result was 0% residual stenosis. OVERALL IMPRESSION: Successful percutaneous transluminal coronary angioplasty stent of the vein graft to the left circumflex going from 80% in-stent restenosis to 0% residual stenosis. TRANSINT:[id number] Voice Confirmation ID: [id number] DOCUMENT ID: [id number] EMY MONTES DE OCA MD CC: [id number] DICTATION DATE: 05/02/17 1112 HANDBAG FRAMES INSPECTOR: 05/02/17 1248 [facility] [address] [place] [address]
[~2017-05-02 07:52] MED LIST changes: +PERCOCET 10/3251 TA1 PO; +SYNTHROID50 MCG PO
[2017-05-02 08:30] VITALS: BP 199/89; Ht 177.8 cm; Wt 81.8 kg
[2017-05-02 08:45] LABS: BASOPHILS 0.5 % (0-2); EOSINOPHILS 10.9 % (0-7); HEMATOCRIT 26.2 % (42.0-54.0); HEMOGLOBIN 8.1 g/dL (13.5-17.5); IMMATURE GRANULOCYTES 0.2 % (0-5); LYMPHOCYTES 20.2 % (15-50); MCH 30.3 pg (26.0-34.0); MCHC 30.9 g/dL (31.0-37.0); MCV 98.1 fL (80.0-100.0); MEAN PLATELET VOLUME 8.6 fL (7.4-10.4); MONOCYTES 5.5 % (2-11); NEUTROPHILS 62.7 % (40-80); PLATELET COUNT 202 10x3/uL (130-400); RBC 2.67 10x6/uL (4.20-6.10); RDW 15.2 % (11.5-14.5); WBC 5.8 10x3/uL (4.8-10.8)
[2017-05-02 08:54] LABS: ANION GAP 9.4 mmol/L (8-16); CALCIUM 9.2 mg/dL (8.5-10.1); CARBON DIOXIDE 30.6 mmol/L (21.0-32.0); CREATININE - SERUM 8.7 mg/dL (0.6-1.3)
--- NOTE | 2017-05-02 11:40 | NUR ---
2L NC, NO RESP DISTRESS NOTED. RIGHT GROIN 6F EXOSEAL CDI, NO BLEEDING OR HEMATOAM NOTED. SYSTOLIC BP 265. DR. MONTES DE OCA NOTIFIED. NEW ORDERS REC'D.
--- NOTE | 2017-05-02 12:05 | NUR ---
CLONIDINE 0.2MG GIVEN PO PER ORDERS. SEE MAR.
--- NOTE | 2017-05-02 12:25 | NUR ---
C/O NAUSEA. ZOFRAN 4MG GIVEN SIVP PER ORDERS. SEE MAR.
--- NOTE | 2017-05-02 12:55 | NUR ---
6 FR EXOSEAL R/GROIN CDI NO BLEEDING NO HEMATOMA NOTED. CHEST PAIN IS DENIED. INSTRUCTED PATIENT TO KEEP HEAD FLAT ON PILLOW WITH RLE STRAIGHT
--- NOTE | 2017-05-02 13:50 | NUR ---
2L NC, NO RESP DISTRESS NOTED. RIGHT GROIN 6F EXOSEAL CDI, NO BLEEDING OR HEMATOMA NOTED. NO C/O PAIN OR NAUSEA. VSS. WILL CONTINUE TO MONITOR.
--- NOTE | 2017-05-02 14:28 | NUR ---
HOB ELEVATED 30 DEGREES. RIGHT GROIN 6F EXOSEAL CDI, NO BLEEDING NOTED. SANDWICH TRAY GIVEN. NO C/O NAUSEA. VSS.
--- NOTE | 2017-05-02 15:01 | NUR ---
RIGHT CHEST INFUSPORT IV D/C'D WITH CATHETER INTACT, BAND AID TO SITE. UP TO BEDSIDE TO GET DRESSED.
--- NOTE | 2017-05-02 15:18 | NUR ---
DISCHARGE INSTRUCTIONS GIVEN, VERBALIZED UNDERSTANDING.
--- NOTE | 2017-05-02 15:30 | NUR ---
TAKEN OUT VIA WHEELCHAIR BY CATH DIRECTOR OF CARDIAC CATH LAB. LEFT FACILTIY WITH FAMILY MEMBER AND ALL PERSONAL BELONGINGS.
== END 2017-05-02 15:30 | disposition home or self-care (01) ==
LOC: D.CATH 07:52
PROVIDERS: Internal Medicine Interventional Cardiology
DX: I25.119 Atherosclerotic heart disease of native coronary artery with unspecified angina pectoris (principal); T82.855A Stenosis of coronary artery stent, initial encounter; Z01.812 Encounter for preprocedural laboratory examination

== ENCOUNTER 2017-11-22 11:24 | Day surgery (SDC) | payer MEDICARE, BC ==
[~2017-11-22] VITALS: Ht 177.8 cm; Wt 84.1 kg
--- NOTE | ~2017-11-22 | OP ---
PATIENT NAME: COLTEN DENG MEDICAL RECORD: [id number] :48 LOCATION:D.OPS ADMISSION DATE: SURGEON: VITA ABRAMS DO DATE OF OPERATION: 11/22/2017 PROCEDURE: Colonoscopy with biopsies. INDICATIONS FOR PROCEDURE: Hematochezia, change in bowel habits, diarrhea, nausea, hemorrhoids. SCOPE: Olympus video pediatric colonoscope. MEDICATIONS: Propofol 430 mg IV per anesthesia. ESTIMATED BLOOD LOSS: Minimal. COMPLICATIONS: None. FINDINGS: Informed consent was given. The patient was made comfortable with the above medication. After reaching an adequate level of sedation by slow IV push, the patient was placed on his left side. A digital rectal examination was performed and was normal. The endoscope was then advanced under direct visualization through the rectum to the cecum with visualization of the appendiceal orifice and ileocecal valve. The endoscope was slowly withdrawn and mucosa was carefully examined. The prep quality was poor to fair. There was evidence of left-sided diverticulosis of moderate severity. There was no bleeding or evidence of diverticulitis. There were no polyps visualized on today's examination. Retroflexion was performed in the rectum with visualization of grade III internal hemorrhoids without bleeding. On this study, there were random biopsies taken to submit for histopathology and to rule out microscopic colitis. Stool was also collected to submit for any infectious disease, which could be causing symptoms. The endoscope was withdrawn from the patient. The patient tolerated the procedure well. There were no complications. IMPRESSION: 1. Left-sided diverticulosis. 2. Grade III internal hemorrhoids without bleeding. PLAN AND RECOMMENDATIONS: 1. Discharge home when recovery parameters are met. 2. Follow up biopsy specimen results. 3. Continue current diet. 4. Continue current medications. 5. Consider trial of cholestyramine or Imodium as needed to slow the bowels and reduce the amount of diarrhea when present. 6. Recall colonoscopy will be when previously stated from his procedure in January, which was 5-7 years from that time. TRANSINT:[id number] Voice Confirmation ID: [id number] DOCUMENT ID: [id number] OPERATIVE REPORT [id number] COLTEN DENG VITA ABRAMS DO at 1119 CC: [id number] DICTATION DATE: 11/22/17 1346 WEB MERCHANDISER: 11/22/17 1414 DEP SD 11/22/17 [facility] [address] [place] [address]
[2017-11-22 12:12] LABS: HEMATOCRIT 31.1 % (42.0-54.0); HEMOGLOBIN 9.8 g/dL (13.5-17.5); MCH 31.9 pg (26.0-34.0); MCHC 31.5 g/dL (31.0-37.0); MCV 101.3 fL (80.0-100.0); MEAN PLATELET VOLUME 9.5 fL (7.4-10.4); RBC 3.07 10x6/uL (4.20-6.10); RDW 15.8 % (11.5-14.5); WBC 5.5 10x3/uL (4.8-10.8)
[2017-11-22 12:29] VITALS: BP 168/92; Ht 177.8 cm; Wt 84.1 kg
== END 2017-11-22 14:55 | disposition home or self-care (01) ==
LOC: D.OPS 11:24
PROVIDERS: Anesthesiology
DX: K57.30 Diverticulosis of large intestine without perforation or abscess without bleeding (principal); K64.2 Third degree hemorrhoids; Z01.812 Encounter for preprocedural laboratory examination

== ENCOUNTER → 2018-01-02 07:19 | Day surgery (SDC) | payer MEDICARE, BC ==
[~2018-01-02] VITALS: Ht 177.8 cm; Wt 83.9 kg
--- NOTE | ~2018-01-02 | OP ---
PATIENT NAME: COLTEN DENG MEDICAL RECORD: [id number] :48 LOCATION:[facility] ADMISSION DATE: SURGEON: DELANEY CLEVELAND MD DATE OF OPERATION: 01/02/2018 REFERRED BY: Ferny Singh MD OPERATION PERFORMED: Implantation of 6-mm straight standard wall Propaten PTFE AV graft in loop configuration between proximal brachial artery and axillary vein on the right after right axillary venogram. SURGEON: Delaney Cleveland MD ANESTHESIA: General with LMA per INTEL ANALYST. PREOPERATIVE NOTE: Mr. Deng is a 67-year-old -Turkish male with end-stage renal disease, on chronic hemodialysis with a tunneled dialysis catheter. He also has a venous access port via the right internal jugular vein and the patient's tunneled dialysis catheter is via the left internal jugular vein. He has had a prior failed radiocephalic fistula, a prior failed proximal radial artery based fistula, and a failed basilic vein fistula. It is hoped that today we can implant a PTFE graft in that right arm. I will need to do a venogram to see if there is a central vein stenosis as he has had a long-standing Infusaport on the right side and does have also a tunneled dialysis catheter on the left. PROCEDURE: With the patient under anesthesia in supine position, his arm was prepped and draped in sterile manner. I examined him with duplex ultrasound and found no suitable veins in the forearm or the upper arm for creation of a primary fistula. The axillary vein and axillary artery were large as was the proximal brachial artery. The brachial artery just above the antecubital space was smaller of course except at the site of prior basilic vein anastomosis where there was some aneurysmal change there of the stump of vein on the artery. I elected to do a loop axillary-based fistula. I made a longitudinal incision and exposed the axillary vein and the proximal brachial artery. These vessels were controlled with Silastic loops. I made a counterincision, which was a hockey stick-shaped incision distally, just across and above the antecubital space. I chose a Propaten graft 6-mm diameter straight standard wall thickness. I beveled it and occluded the vein, opened the vein and flushed it proximally and distally with heparinized saline, and then did an end of graft to side of vein anastomosis with running 6-0 Prolene. I placed the graft in a subcutaneous tunnel, which passed downward to the counterincision area and then back upward and laterally before coming back medially to the axillary incision where that end of the graft, after being again flushed with heparinized saline, was shortened and beveled. The artery was occluded proximally and distally with Silastic loops and the artery flushed with heparinized saline proximally and distally. An end of graft to side of artery anastomosis was then done with running 6-0 Prolene. When completed and the occluding loops and clamps were released, excellent flow developed in the fistula and the suture lines were hemostatic. There was very good ulnar artery pulsatile flow by Doppler and good flow in the right palm arch. There was very weak flow detected with Doppler in the radial artery at the wrist. This is probably longstanding and associated with prior radiocephalic fistula. There was no sign of any impaired circulation in the hand. OPERATIVE REPORT [id number] COLTEN DENG The wounds were irrigated with saline and some fibrillar material was used for additional hemostasis. The wounds were infiltrated and irrigated with 0.25% Marcaine without epinephrine and the wound was then closed without the use of a drain, approximating subcutaneous tissues with interrupted inverted 3-0 Vicryl and skin with running intracuticular 4-0 Monocryl and Dermabond glue. The 2 incisions were dressed with Maxorb Ag, Tegaderm, and Cavilon skin prep. The patient was then awakened from his anesthetic with a good palpable pulsation and thrill in the graft, was taken to the recovery room. Blood loss was about 5 cc and unreplaced. All sponges, instruments, and needles were accounted for. No drain was used and no surgical specimen was submitted for histopathology. PLAN: The patient will go home today and follow up with me in my office next week. He will continue his usual dialysis schedule and continue his home medications. He has been on Plavix and he will need to go back on Plavix, but I will have him wait about 48 hours, that means he will start taking his Plavix again on of this week, today is Monday. He takes narcotic pain medication at home chronically and these are prescribed by another physician. I have advised him that he will not likely need very much pain medication for his surgical discomfort and what he has at home already should suffice or he can contact his prescribing physician with whom, I believe, he has a pain contract. I have advised him that he may use ice for brief periods of time on the incision areas for his postop pain and discomfort if needed. He was cautioned not to use ice for a long period of time because of the chilling effect on the blood circulating through the graft. TRANSINT:[id number] Voice Confirmation ID: [id number] DOCUMENT ID: [id number] DELANEY CLEVELAND MD at 1044 CC: [id number] DICTATION DATE: 01/02/18 1612 EXPRESS CLERK: 01/02/18 1808 [facility] 01/02/18 [facility] [address] [place] [address]
[2018-01-02 08:42] VITALS: BP 134/117; Ht 177.8 cm; Wt 83.9 kg
[2018-01-02 08:46] LABS: INR 1.11 (0.85-1.17); PROTIME 13.9 SECONDS (11.6-15.0)
[2018-01-02 08:47] LABS: APTT 40.1 SECONDS (22.8-39.4)
[2018-01-02 08:52] LABS: ANION GAP 17.1 mmol/L (8-16); CALCIUM 9.7 mg/dL (8.5-10.1); CARBON DIOXIDE 24.9 mmol/L (21.0-32.0); CREATININE - SERUM 8.5 mg/dL (0.6-1.3)
[2018-01-02 08:57] LABS: BASOPHILS 0.5 % (0-2); EOSINOPHILS 8.7 % (0-7); HEMATOCRIT 29.7 % (42.0-54.0); HEMOGLOBIN 9.4 g/dL (13.5-17.5); IMMATURE GRANULOCYTES 0.2 % (0-5); LYMPHOCYTES 21.6 % (15-50); MCH 32.2 pg (26.0-34.0); MCHC 31.6 g/dL (31.0-37.0); MCV 101.7 fL (80.0-100.0); MEAN PLATELET VOLUME 9.4 fL (7.4-10.4); MONOCYTES 6.7 % (2-11); NEUTROPHILS 62.3 % (40-80); PLATELET COUNT 197 10x3/uL (130-400); RBC 2.92 10x6/uL (4.20-6.10); RDW 16.2 % (11.5-14.5); WBC 5.8 10x3/uL (4.8-10.8)
== END | disposition home or self-care (01) ==
LOC: D.OPS 07:19
PROVIDERS: Surgery
DX: N18.6 End stage renal disease (principal); Z99.2 Dependence on renal dialysis; Z01.812 Encounter for preprocedural laboratory examination

== ENCOUNTER 2018-10-07 07:44 | Emergency (ER) | payer MEDICARE, BC ==
[~2018-10-07] VITALS: Ht 177.8 cm; Wt 83.6 kg
[2018-10-07 07:45] VITALS: Ht 177.8 cm; Wt 83.6 kg
[2018-10-07 09:49] VITALS: BP 128/82
== END 2018-10-07 09:50 | disposition home or self-care (01) ==
LOC: D.ER 07:44
DX: S46.012A Strain of muscle(s) and tendon(s) of the rotator cuff of left shoulder, initial encounter (principal); W18.30XA Fall on same level, unspecified, initial encounter; Y93.89 Activity, other specified; Y92.012 Bathroom of single-family (private) house as the place of occurrence of the external cause; I12.0 Hypertensive chronic kidney disease with stage 5 chronic kidney disease or end stage renal disease; N18.6 End stage renal disease; Z99.2 Dependence on renal dialysis; Z95.1 Presence of aortocoronary bypass graft

== ENCOUNTER 2018-12-04 10:14 | Emergency (ER) | payer MEDICARE, BC ==
[~2018-12-04] VITALS: Ht 177.8 cm; Wt 81.8 kg
[2018-12-04 10:17] VITALS: Ht 177.8 cm; Wt 81.8 kg
[2018-12-04] MEDS ORDERED: HYDROCODON-ACE1 EA10 PO (11:15)
[2018-12-04] MEDS ORDERED: ZOCOR20 MG PO (11:17)
[2018-12-04] MEDS ORDERED: RENA-VITE TABL0.8 MG PO (11:20)
[2018-12-04] MEDS ORDERED: RENVELA800 MG PO (11:20)
[2018-12-04] MEDS ORDERED: STERAPRED 5MG 125 MG PO (11:21)
[2018-12-04] MEDS ORDERED: AMBIEN10 MG PO (11:21)
[2018-12-04] MEDS ORDERED: ZYTIGA250 MG PO (11:22)
[2018-12-04] MEDS ORDERED: PROTONIX40 MG PO (11:22)
[2018-12-04] MEDS ORDERED: HYDROXYZINE HCL50 MG PO (11:23)
[2018-12-04] MEDS ORDERED: SYNTHROID50 MCG PO (11:23)
[2018-12-04] MEDS ORDERED: HYDROCODON-ACE1 EAC7 PO (12:09)
[2018-12-04 13:41] VITALS: BP 111/89
== END 2018-12-04 12:31 | disposition home or self-care (01) ==
LOC: D.ER 10:14
DX: M54.5 Low back pain (principal); M79.605 Pain in left leg

== ENCOUNTER 2018-12-23 21:32 | Inpatient (IN) | payer MEDICARE, BC ==
[~2018-12-23] VITALS: Ht 177.8 cm; Wt 78.4 kg
--- NOTE | ~2018-12-23 | RHP ---
PATIENT: COLTEN DENG MEDICAL RECORD: [id number] ACCOUNT: [id number] LOCATION:[facility]1119 : 48 ADMISSION DATE: 12/23/18 REHABILITATION HISTORY AND PHYSICAL EXAMINATION POST ADMISSION PHYSICIAN EXAMINATION DATE OF ADMISSION: 12/23/2018 ADMITTING DIAGNOSIS: Right jfmhg-brh-zosq amputation. HISTORY OF PRESENT ILLNESS: The patient is a 68-year-old gentleman admitted to the rehab with a right dhees-rps-wanj amputation. He was admitted to [facility] on 12/14/2018 with cellulitis of his foot. He came into the Emergency Room complaining of acute onset of right foot pain, redness, swelling and had been getting worse. His right foot imaging showed soft tissue swelling and was placed on antibiotics for cellulitis. He has got a past medical history of end-stage renal disease. He is dependent on hemodialysis on Monday, Monday and Monday; AFib; coronary artery disease; hypothyroidism; CHF. He recently underwent amputation of his right second toe for devascularized toe. Since that time, he began developing some increasing pain, coldness, discoloration, darkness to proximal two-thirds distally. Dr. Infante was consulted. An arteriogram was done. He noticed his foot was cold and dark at the very distinct demarcation line. He was not very optimistic to be able to save the foot. He went on 12/16/2018 to the OR for a right qract-iaw-hfda amputation. His postop hospital course was complicated by acute blood loss anemia, hypertension, dyspnea, and deconditioning. Previously he was moderately independent with his rolling walker for ADLs and mobility. Currently, he is max assist for ADLs, max assist times 2 for transfers, supine to sit, sit to stand and bed to chair. He needs to improve his functional activity, tolerance, and mobility. He is nonweightbearing on his right lower extremity and continues to have problems with safety precautions at that time. He would like to plan on returning back home with his after discharge. COMORBIDITIES: In this patient include ischemic necrosis of right foot, diastolic CHF, end-stage renal disease, coronary artery disease, peripheral vascular disease, COPD, cardiomegaly, AFib, hyperlipidemia, prostate cancer, gastroesophageal reflux disease, anxiety, and arthritis. PAST MEDICAL HISTORY: Significant for AFib, CHF, COPD, end-stage renal disease, hemodialysis, and coronary artery disease. PAST SURGICAL HISTORY: Includes coronary artery bypass grafting, AV fistula, appendectomy, and right qrzqy-vir-qjor amputation. ALLERGIES: PENICILLIN AND ISONIAZID. CURRENT MEDICATIONS: Include folic acid daily. He is on Zocor 20 mg q.h.s. He is on Renagel 2400 mg t.i.d. with meals, Requip 0.5 mg t.i.d., prednisone 5 mg daily, Protonix 40 mg daily, Synthroid 50 mcg daily. He is on heparin 5000 units b.i.d., ferrous sulfate 325 mg b.i.d., Plavix 75 mg daily, Coreg 3.125 mg b.i.d. with meals, Norvasc 5 mg q.h.s., amiodarone 200 mg b.i.d., Zanaflex 2 mg q.8 hours p.r.n., Senokot 1 tab b.i.d. p.r.n., Chloraseptic spray 1 spray q.2 hours p.r.n., Zofran ODT 4 mg q.6 hours p.r.n., [place] 10/325 one tab q.6 hours p.r.n., Flexeril 10 mg q.8 hours p.r.n., Sensipar 90 mg q.h.s., Tums 500 mg every 6 hours p.r.n., Dulcolax 10 mg daily, acetaminophen 650 mg q.6 hours HISTORY AND PHYSICAL [id number] SOWMYA,COLTEN WILD p.r.n., and MiraLax 17 grams in 8 ounces of water daily. HABITS: No current alcohol or tobacco use. FAMILY HISTORY: Noncontributory. SOCIAL HISTORY: The patient hopes to return back home and get back to his prior level of functioning. REVIEW OF SYSTEMS: GENERAL: Does complain of some weakness and fatigue. HEENT: Denies cold, cough, or congestion. CARDIOVASCULAR: He denies chest pain. PHYSICAL EXAMINATION: VITAL SIGNS: Stable, afebrile. GENERAL: A well-developed elderly gentleman in no acute distress, alert upon exam. HEENT: Normocephalic and atraumatic. Mucosa moist. NECK: Supple. No lymphadenopathy. LUNGS: Clear at this time. HEART: Regular rate and rhythm. ABDOMEN: Benign. EXTREMITIES: Does have a right uikpq-hxu-fifw amputation. NEUROLOGIC: Does have some noted weakness. LABORATORY DATA: His white count is 9.4, H&H of 7.2 and 23.6, and platelet count is noted to be 298. His sodium is 128, potassium 4.1, BUN and creatinine of 65 and 9.7, and blood sugar is noted to be 86. ASSESSMENT: This is a 68-year-old gentleman admitted to the rehab with a working diagnosis of right tfnhf-cvr-cisc amputation. The patient has potential to make improvement. We instituted the following multidisciplinary therapies include, but not limited to physical, occupational, respiratory, speech, nutritional services, prosthetics and orthotics. Given his complex medical condition and risks of more complications, rehabilitation services cannot be provided at a low level of care such as chcf facility. PLAN: 1. Admit to [facility] for intensive inpatient therapy to include the following disciplines: A. Physical therapy to improve gait, all transfer skills and bed mobility to a modified independent level. B. Occupational therapy to improve activities of daily living to a modified independent level. C. Case management to assist with discharge planning and placement options. D. Nutrition to assist with nutritional needs. E. Rehabilitation nursing to assist in monitoring the patient's underlying medical condition to assist with any type of bowel or bladder management. 2. The patient's current medication and medical care will be continued. 3. The patient will be placed on standard fall precautions. 4. We will go ahead and get [employer] involved on his prosthesis. 5. We will go ahead and follow up with renal about giving this gentleman some blood secondary to low H&H. I will see him again in the a.m. HISTORY AND PHYSICAL [id number] COLTEN DENG TRANSINT:[id number] Voice Confirmation ID: [id number] DOCUMENT ID: [id number] DAISY notes whether there has been none or any medical/functional change since admission: - No change since the PAS DAISY attests patient continues to be appropriate for IRF: - Remains appropriate for the [facility] ELZBIETA HAQUE MD CC: [id number] DICTATION DATE: 12/24/18900 BLOOD BANK COORDINATOR: 12/24/18929 ADM IN [place] [id number] [place] [address]
[~2018-12-23 21:32] MED LIST changes: +AMBIEN10 MG PO; +HYDROCODON-ACE1 EA10 PO; +HYDROCODON-ACE1 EAC7 PO; +HYDROXYZINE HCL50 MG PO; +PROTONIX40 MG PO; +RENA-VITE TABL0.8 MG PO; +STERAPRED 5MG 125 MG PO; +ZOCOR20 MG PO; +ZYTIGA250 MG PO
[2018-12-23 22:10] VITALS: BP 142/62; BMI 25.8
[2018-12-23] MEDS ORDERED: ZYTIGA250 MG PO (22:13)
[2018-12-24 08:36] LABS: BASOPHILS 0.1 % (0-2); EOSINOPHILS 1.8 % (0-7); HEMATOCRIT 23.6 % (42.0-54.0); IMMATURE GRANULOCYTES 0.3 % (0-5); LYMPHOCYTES 6.8 % (15-50); MCH 30.5 pg (26.0-34.0); MCHC 30.5 g/dL (31.0-37.0); MEAN PLATELET VOLUME 9.1 fL (7.4-10.4); MONOCYTES 5.2 % (2-11); NEUTROPHILS 85.8 % (40-80); RBC 2.36 10x6/uL (4.20-6.10); RDW 19.3 % (11.5-14.5); WBC 9.4 10x3/uL (4.8-10.8)
[2018-12-24 08:46] LABS: ANION GAP 15.4 mmol/L (8-16); CALCIUM 7.8 mg/dL (8.5-10.1); CARBON DIOXIDE 25.7 mmol/L (21.0-32.0); CREATININE - SERUM 9.7 mg/dL (0.6-1.3); POTASSIUM - SERUM 4.1 mmol/L (3.5-5.1)
[2018-12-24 08:59] LABS: HEMOGLOBIN 7.2 g/dL (13.5-17.5); PLATELET COUNT 298 10x3/uL (130-400)
[2018-12-24 11:39] VITALS: BP 109/52
[2018-12-24 13:56] VITALS: Ht 177.8 cm; Wt 78.4 kg
[2018-12-24 18:00] VITALS: BP 119/43
[2018-12-25] VITALS: BP 148/59
[2018-12-25 06:11] VITALS: BP 118/48
[2018-12-25 11:48] VITALS: BP 112/67
[2018-12-25 18:00] VITALS: BP 122/31
[2018-12-26] VITALS (7 sets, daily range): BP systolic 98–147; BP diastolic 39–82
[2018-12-26 08:03] LABS: ANION GAP 15.6 mmol/L (8-16); CALCIUM 8.1 mg/dL (8.5-10.1); CARBON DIOXIDE 25.3 mmol/L (21.0-32.0); CREATININE - SERUM 9.4 mg/dL (0.6-1.3); POTASSIUM - SERUM 3.9 mmol/L (3.5-5.1)
[2018-12-26 08:09] LABS: BASOPHILS 0.1 % (0-2); HEMATOCRIT 22.1 % (42.0-54.0); IMMATURE GRANULOCYTES 0.5 % (0-5); LYMPHOCYTES 7.6 % (15-50); MCH 31.1 pg (26.0-34.0); MCHC 30.8 g/dL (31.0-37.0); MCV 100.9 fL (80.0-100.0); MEAN PLATELET VOLUME 8.9 fL (7.4-10.4); MONOCYTES 7.1 % (2-11); NEUTROPHILS 82.7 % (40-80); PLATELET COUNT 309 10x3/uL (130-400); RBC 2.19 10x6/uL (4.20-6.10); RDW 19.7 % (11.5-14.5); WBC 8.2 10x3/uL (4.8-10.8)
[2018-12-26 08:13] LABS: HEMOGLOBIN 6.8 g/dL (13.5-17.5)
[2018-12-27 06:15] VITALS: BP 108/47
[2018-12-27 13:00] VITALS: BP 135/66
[2018-12-27 18:00] VITALS: BP 126/38
[2018-12-28] VITALS: BP 122/57
[2018-12-28 06:27] VITALS: BP 106/38
[2018-12-28 06:43] LABS: CALCIUM 8.3 mg/dL (8.5-10.1); CARBON DIOXIDE 25.5 mmol/L (21.0-32.0); CREATININE - SERUM 7.9 mg/dL (0.6-1.3); POTASSIUM - SERUM 3.5 mmol/L (3.5-5.1); VANCOMYCIN - RANDOM 21.1 ug/mL (10.0-20.0)
[2018-12-28 07:02] LABS: HEMOGLOBIN 8.4 g/dL (13.5-17.5); LYMPHOCYTES 4.9 % (15-50); MCH 32.4 pg (26.0-34.0); MCHC 33.6 g/dL (31.0-37.0); MEAN PLATELET VOLUME 8.4 fL (7.4-10.4); NEUTROPHILS 83.9 % (40-80); PLATELET COUNT 350 10x3/uL (130-400); RBC 2.59 10x6/uL (4.20-6.10); RDW 21.1 % (11.5-14.5); WBC 8.3 10x3/uL (4.8-10.8)
[2018-12-28 07:03] LABS: MCV 96.5 fL (80.0-100.0)
[2018-12-28 12:29] VITALS: BP 123/60
[2018-12-29 00:01] VITALS: BP 124/44
[2018-12-29 04:48] LABS: % SATURATION 14 % (15-55); IRON 18 ug/dl (35-150); TOTAL IRON BIND CAPACITY 121 ug/dl (260-445); UNSAT IRON BIND CAPACITY 103 ug/dl (150-375)
[2018-12-29 05:17] LABS: VANCOMYCIN - RANDOM 22.1 ug/mL (10.0-20.0)
[2018-12-29 07:29] VITALS: BP 126/35
[2018-12-29 11:56] VITALS: BP 137/38
[2018-12-29 18:18] VITALS: BP 133/76
[2018-12-29 19:04] VITALS: BP 118/36
[2018-12-29 23:50] VITALS: BP 118/40
[2018-12-30 05:33] VITALS: BP 107/80
[2018-12-30 08:39] VITALS: BP 126/46
[2018-12-30 11:38] VITALS: BP 117/47
[2018-12-30 17:29] VITALS: BP 147/62
[2018-12-31 05:47] VITALS: BP 135/74
[2018-12-31 11:24] VITALS: BP 148/47
[2018-12-31 14:30] LABS: BASOPHILS 0.1 % (0-2); EOSINOPHILS 2.4 % (0-7); HEMATOCRIT 26.5 % (42.0-54.0); HEMOGLOBIN 8.3 g/dL (13.5-17.5); IMMATURE GRANULOCYTES 0.4 % (0-5); LYMPHOCYTES 4.6 % (15-50); MCH 29.6 pg (26.0-34.0); MCHC 31.3 g/dL (31.0-37.0); MCV 94.6 fL (80.0-100.0); MEAN PLATELET VOLUME 8.4 fL (7.4-10.4); MONOCYTES 7.1 % (2-11); NEUTROPHILS 85.4 % (40-80); PLATELET COUNT 396 10x3/uL (130-400); WBC 8.5 10x3/uL (4.8-10.8)
[2018-12-31 14:49] LABS: ANION GAP 16.8 mmol/L (8-16); CALCIUM 9.1 mg/dL (8.5-10.1); CARBON DIOXIDE 25.5 mmol/L (21.0-32.0); CREATININE - SERUM 9.4 mg/dL (0.6-1.3); PHOSPHOROUS 3.9 mg/dL (2.5-4.9); POTASSIUM - SERUM 3.3 mmol/L (3.5-5.1)
[2018-12-31 18:00] VITALS: BP 108/47
[2019-01-01 00:05] VITALS: BP 136/53
[2019-01-01 08:00] VITALS: BP 111/56
[2019-01-01 11:29] VITALS: BP 143/42
[2019-01-01 18:00] VITALS: BP 108/57
[2019-01-02 00:03] VITALS: BP 121/47
[2019-01-02 04:28] LABS: BASOPHILS 0.1 % (0-2); EOSINOPHILS 1.8 % (0-7); HEMATOCRIT 25.5 % (42.0-54.0); HEMOGLOBIN 8.1 g/dL (13.5-17.5); IMMATURE GRANULOCYTES 0.2 % (0-5); MCH 30.3 pg (26.0-34.0); MCHC 31.8 g/dL (31.0-37.0); MCV 95.5 fL (80.0-100.0); MEAN PLATELET VOLUME 8.1 fL (7.4-10.4); MONOCYTES 7.5 % (2-11); NEUTROPHILS 79.4 % (40-80); PLATELET COUNT 320 10x3/uL (130-400); RBC 2.67 10x6/uL (4.20-6.10); RDW 19.9 % (11.5-14.5); WBC 8.1 10x3/uL (4.8-10.8)
[2019-01-02 05:01] LABS: ANION GAP 14.6 mmol/L (8-16); CALCIUM 9.4 mg/dL (8.5-10.1); CARBON DIOXIDE 28.7 mmol/L (21.0-32.0); CREATININE - SERUM 8.1 mg/dL (0.6-1.3); PHOSPHOROUS 4.1 mg/dL (2.5-4.9); POTASSIUM - SERUM 3.3 mmol/L (3.5-5.1); VANCOMYCIN - RANDOM 18.6 ug/mL (10.0-20.0)
[2019-01-02 06:21] VITALS: BP 117/41
[2019-01-02 11:11] VITALS: BP 147/39
[2019-01-02 18:00] VITALS: BP 98/62
[2019-01-03] VITALS: BP 109/63
[2019-01-03 06:00] VITALS: BP 143/61
[2019-01-03 11:25] VITALS: BP 155/76
[2019-01-03 18:20] VITALS: BP 110/85
[2019-01-03 19:48] VITALS: BP 115/65
[2019-01-04] VITALS: BP 110/64
[2019-01-04 05:28] LABS: BASOPHILS 0.1 % (0-2); EOSINOPHILS 2.6 % (0-7); IMMATURE GRANULOCYTES 0.4 % (0-5); LYMPHOCYTES 10.2 % (15-50); MCH 29.9 pg (26.0-34.0); MCHC 31.3 g/dL (31.0-37.0); MCV 95.6 fL (80.0-100.0); MEAN PLATELET VOLUME 8.2 fL (7.4-10.4); MONOCYTES 8.9 % (2-11); NEUTROPHILS 77.8 % (40-80); PLATELET COUNT 287 10x3/uL (130-400); RBC 2.51 10x6/uL (4.20-6.10); RDW 20.1 % (11.5-14.5); WBC 7.8 10x3/uL (4.8-10.8)
[2019-01-04 05:29] LABS: HEMOGLOBIN 7.5 g/dL (13.5-17.5)
[2019-01-04 05:38] LABS: ANION GAP 12.3 mmol/L (8-16); CALCIUM 9.1 mg/dL (8.5-10.1); CARBON DIOXIDE 27.8 mmol/L (21.0-32.0); CREATININE - SERUM 7.4 mg/dL (0.6-1.3); POTASSIUM - SERUM 3.1 mmol/L (3.5-5.1); VANCOMYCIN - RANDOM 18.8 ug/mL (10.0-20.0)
[2019-01-04 06:00] VITALS: BP 114/41
[2019-01-04 11:54] VITALS: BP 114/55
[2019-01-04 18:21] VITALS: BP 115/72
[2019-01-04 22:18] VITALS: BP 112/31
[2019-01-05 05:19] VITALS: BP 117/65
[2019-01-05 12:28] VITALS: BP 120/87
[2019-01-05 17:44] VITALS: BP 104/84
[2019-01-05 22:05] VITALS: BP 133/75
[2019-01-06 06:06] VITALS: BP 112/44
[2019-01-06 12:00] VITALS: BP 95/66
[2019-01-06 18:00] VITALS: BP 108/88
[2019-01-06 20:00] VITALS: BP 110/65
[2019-01-07 00:21] VITALS: BP 129/71
[2019-01-07 06:23] LABS: BASOPHILS 0.2 % (0-2); IMMATURE GRANULOCYTES 0.3 % (0-5); LYMPHOCYTES 11.1 % (15-50); MCH 29.7 pg (26.0-34.0); MCHC 31.2 g/dL (31.0-37.0); MCV 95.2 fL (80.0-100.0); MEAN PLATELET VOLUME 8.6 fL (7.4-10.4); NEUTROPHILS 77.4 % (40-80); PLATELET COUNT 263 10x3/uL (130-400); RBC 2.09 10x6/uL (4.20-6.10); RDW 20.1 % (11.5-14.5); WBC 8.6 10x3/uL (4.8-10.8)
[2019-01-07 06:29] VITALS: BP 144/77
[2019-01-07 06:31] LABS: ANION GAP 15.2 mmol/L (8-16); CALCIUM 9.4 mg/dL (8.5-10.1); CARBON DIOXIDE 26.6 mmol/L (21.0-32.0); CREATININE - SERUM 9.3 mg/dL (0.6-1.3); POTASSIUM - SERUM 3.8 mmol/L (3.5-5.1); VANCOMYCIN - RANDOM 13.6 ug/mL (10.0-20.0)
[2019-01-07 06:32] LABS: HEMATOCRIT 19.9 % (42.0-54.0); HEMOGLOBIN 6.2 g/dL (13.5-17.5)
[2019-01-07] MEDS ORDERED: REQUIP0.25 MG PO (08:43)
[2019-01-07] MEDS ORDERED: NORVASC5 MG PO (08:43)
[2019-01-07] MEDS ORDERED: ACETAMINOPHEN325 MG PO (08:43)
[2019-01-07] MEDS ORDERED: RENAGEL800 MG PO (08:44)
== END 2019-01-07 12:05 | disposition short-term general hospital (02) | DRG 559 ==
LOC: D.REHAB 21:32
PROVIDERS: Internal Medicine Nephrology; ADMIT Emergency Medicine; ATTEND Emergency Medicine
DX: Z47.81 Encounter for orthopedic aftercare following surgical amputation (principal); N18.6 End stage renal disease; L03.115 Cellulitis of right lower limb; I50.30 Unspecified diastolic (congestive) heart failure; N17.9 Acute kidney failure, unspecified; I13.2 Hypertensive heart and chronic kidney disease with heart failure and with stage 5 chronic kidney disease, or end stage renal disease; Z89.511 Acquired absence of right leg below knee; Z99.2 Dependence on renal dialysis; I25.10 Atherosclerotic heart disease of native coronary artery without angina pectoris; I73.9 Peripheral vascular disease, unspecified; K21.9 Gastro-esophageal reflux disease without esophagitis; F41.9 Anxiety disorder, unspecified; E78.5 Hyperlipidemia, unspecified; I48.91 Unspecified atrial fibrillation; J44.9 Chronic obstructive pulmonary disease, unspecified; I51.7 Cardiomegaly; E03.9 Hypothyroidism, unspecified; I48.0 Paroxysmal atrial fibrillation; R06.00 Dyspnea, unspecified; G47.33 Obstructive sleep apnea (adult) (pediatric); M19.90 Unspecified osteoarthritis, unspecified site

== ENCOUNTER 2019-02-21 15:59 | Inpatient (IN) | payer MEDICARE, BC ==
[~2019-02-21] VITALS: Ht 177.8 cm; Wt 77.6 kg
[~2019-02-21 15:59] MED LIST changes: +ACETAMINOPHEN325 MG PO; +NORVASC5 MG PO; +RENAGEL800 MG PO; +REQUIP0.25 MG PO
--- NOTE | 2019-02-21 16:00 | NUR ---
RECIEVED FROM EMS/STRETCHER TO ROOM 1113A FOR REHAB.ORIENTED TO ROOM AND SURROUNDINGS.CL IN REACH.
[2019-02-21] MEDS ORDERED: ACETAMINOPHEN325 MG PO (17:11)
[2019-02-21] MEDS ORDERED: PROCHLORPERAZ5 MG/M1 PO (17:13)
[2019-02-21] MEDS ORDERED: CHRONULAC30 ML PO (17:15)
[2019-02-21] MEDS ORDERED: PERCOCET 10-321 EAC1 PO (17:16)
[2019-02-21] MEDS ORDERED: PACERONE200 MG PO (17:36)
[2019-02-21] MEDS ORDERED: ASPIRIN81 MG PO (17:36)
[2019-02-21] MEDS ORDERED: PROTONIX40 MG PO (17:37)
[2019-02-21] MEDS ORDERED: LIPITOR80 MG PO (17:37)
[2019-02-21] MEDS ORDERED: REQUIP1 MG PO (17:38)
[2019-02-21] MEDS ORDERED: NEPHRO-VITE RX1 TAB PO (17:39)
[2019-02-21] MEDS ORDERED: RENVELA800 MG PO (17:39)
[2019-02-21] MEDS ORDERED: COLACE100 MG PO (17:40)
[2019-02-21] MEDS ORDERED: FERROUS SULFAT325 MG PO (17:41)
[2019-02-21] MEDS ORDERED: CYPROHEPTAD2 MG/5 ML PO (17:41)
[2019-02-21] MEDS ORDERED: SYNTHROID100 MCG PO (17:44)
[2019-02-21] MEDS ORDERED: PROCRIT/EP10000 UNIT SC (17:47)
[2019-02-21] MEDS ORDERED: SENSIPAR30 MG PO (17:50)
[2019-02-21] MEDS ORDERED: ZYTIGA250 MG PO (17:51)
[2019-02-21 18:28] VITALS: BP 111/45; BMI 24.6
--- NOTE | 2019-02-21 18:49 | NUR ---
PT RESTING IN BED WITH EYES OPEN CALL LIGHT IN REACH NO PROBLEMS WILL MONITER
[2019-02-21 19:30] VITALS: BP 93/71
--- NOTE | 2019-02-21 21:30 | NUR ---
PT SITTING UP IN BED. JUST ARRIVED. WENT OVER NIGHT TIME MEDS WITH PT AND . DENIES QUESTIONS OR NEEDS AT THIS TIME. TURNED PT ON RIGHT SIDE DUE TO LEFT HIP HURTING. PAIN MEDS GIVEN PER MAR. RESP EVEN AND UNLABORED. LUNGS CLEAR. BOWEL ACTIVE X4. PT IS A R AKA WHICH IS HEALED. DRESSINGS TO RIGHT SIDE OF BUTTOCKS DUE TO WOUNDS. WILL CONTINUE TO MONITOR. CALL LIGHT IN REACH.
[2019-02-22 00:45] VITALS: BP 138/80
--- NOTE | 2019-02-22 02:41 | NUR ---
RESTING IN BED WITH EYES CLOSED AND RESPIRATIONS UNLABORED. NO DISTRESS NOTED.
--- NOTE | 2019-02-22 05:57 | NUR ---
RESTING QUIETLY. CALL LIGHT IN REACH. NO DISTRESS NOTED. COMPLAINED OF BUTT AND LEFT KNEE PAIN. PAIN MED CHARGE WEIGHER PER NOV. TM
[2019-02-22 06:00] VITALS: BP 96/33
[2019-02-22 07:39] LABS: ANION GAP 14.5 mmol/L (8-16); CALCIUM 10.8 mg/dL (8.5-10.1); CARBON DIOXIDE 27.8 mmol/L (21.0-32.0); CREATININE - SERUM 5.9 mg/dL (0.6-1.3); POTASSIUM - SERUM 4.3 mmol/L (3.5-5.1)
[2019-02-22 08:08] LABS: BASOPHILS 0.3 % (0-2); EOSINOPHILS 9.4 % (0-7); IMMATURE GRANULOCYTES 0.2 % (0-5); LYMPHOCYTES 19.3 % (15-50); MCH 28.9 pg (26.0-34.0); MCHC 31.8 g/dL (31.0-37.0); MCV 90.8 fL (80.0-100.0); MEAN PLATELET VOLUME 8.8 fL (7.4-10.4); MONOCYTES 7.1 % (2-11); NEUTROPHILS 63.7 % (40-80); RBC 2.18 10x6/uL (4.20-6.10); RDW 16.4 % (11.5-14.5); WBC 9.1 10x3/uL (4.8-10.8)
[2019-02-22 08:19] LABS: HEMATOCRIT 19.8 % (42.0-54.0); HEMOGLOBIN 6.3 g/dL (13.5-17.5); PLATELET COUNT 330 10x3/uL (130-400)
--- NOTE | 2019-02-22 08:35 | NUR ---
PT RESTING IN BED WITH EYES OPEN CALL LIGHT IN REACH WILL MONITER
--- NOTE | 2019-02-22 08:38 | NUR ---
*WOUND CARE* STAGE 2 PRESSURE ULCER CLUSTER SELINA AREA. - CLEAN WITH SOAP AND WATER OR WOUND CLEANSER AND PAT DRY. - APPLY CALMOSEPTINE AND COVER WITH MEPILEX BORDERED FOAM DRESSING. WOUND CARE TO BE PROVIDED DAILY AND WHEN SOILED.
[2019-02-22 12:04] VITALS: BP 94/40
[2019-02-22 12:52] VITALS: BMI 24.5
[2019-02-22 13:01] VITALS: Ht 177.8 cm; Wt 77.6 kg
--- NOTE | 2019-02-22 14:24 | RHP ---
PATIENT: COLTEN DENG MEDICAL RECORD: [id number] ACCOUNT: [id number] LOCATION:[facility]1113 : 48 ADMISSION DATE: 02/21/19 REHABILITATION HISTORY AND PHYSICAL EXAMINATION POST ADMISSION PHYSICIAN EXAMINATION POST ADMISSION PHYSICAL EXAMINATION AND HISTORY AND PHYSICAL DATE OF ADMISSION: 02/21/2019 ADMITTING DIAGNOSIS: Right dpbbw-zia-ztbo amputation. HISTORY OF PRESENT ILLNESS: The patient is a 69-year-old gentleman, who presents secondary to her right dblbi-emk-fsaw amputation. He originally admitted to the acute rehab on December 23 with a right BKA performed by Dr. Infante. He did well. Continued to have hemodialysis. He became confused, disoriented. His right stump developed blisters and necrotic tissue. On January 07, he was transferred back to [facility]. On January 08, he was taken back to the OR for revision of the right whvjt-dml-buxw amputation and became a right vqkmk-zrr-vjpw amputation. During his acute hospital stay, he had encephalopathy, septic shock. He had an I&D of his left knee and was placed on appropriate antibiotics. He was transferred to [facility] on January 24 for long-term therapy and antibiotics. Previously, he lived with his , was moderately independent with a cane for ADLs and mobility. Currently, he is mod-to-max assist for ADLs and transfers. He has completed his antibiotic therapy. He is alert and oriented times 3, very weak and deconditioned secondary to his prolonged hospitalization. He and his family would like for him to get back to his prior level of functioning and hopefully return back home. COMORBIDITIES: Include hypothyroidism, hypertension, paroxysmal atrial fib, congestive heart failure, septic shock, right BKA with revision of AKA, end-stage renal disease, iron-deficient anemia, deconditioning, obstructive sleep apnea, anemia of chronic disease, and pressure ulcers. PAST MEDICAL HISTORY: Significant for CHF, end-stage renal disease, hemodialysis dependent, obstructive sleep apnea, peripheral vascular disease, hypothyroidism, and AFib. PAST SURGICAL HISTORY: Please see previous charts. ALLERGIES: PENICILLIN AND ISONIAZID. CURRENT MEDICATIONS: Include Tylenol as needed. He is on erythropoietin 12,000 units every 48 hours, aspirin chewable 81 mg daily, Colace 100 mg daily, folic acid daily, Protonix 40 mg daily, ferrous sulfate 325 b.i.d., cyproheptadine 4 mg t.i.d., atorvastatin 80 mg at bedtime, amiodarone 200 mg b.i.d. He is on Requip 0.5 mg t.i.d., Synthroid 100 mcg daily. He is on sevelamer, he is on 1600 mg t.i.d. with meals. Percocet 10/325 for pain, prochlorperazine 10 mg every 6 hours p.r.n. nausea. He is on lactulose solution p.r.n. He is on Sensipar 30 mg every 48 hours and MiraLax 17 grams in 8 ounces of water daily. HABITS: No current alcohol or tobacco use. FAMILY HISTORY: Noncontributory. HISTORY AND PHYSICAL [id number] COLTEN DENG SOCIAL HISTORY: The patient hopes to return back home and get back to his prior level of functioning. REVIEW OF SYSTEMS: GENERAL: Does complain of weakness and fatigue. HEENT: Denies cold, cough, or congestion. CARDIOVASCULAR: Denies chest pain. PHYSICAL EXAMINATION: VITAL SIGNS: Stable, afebrile. GENERAL: Elderly gentleman, in no acute distress upon exam. HEENT: Normocephalic and atraumatic. Mucosa moist. NECK: Supple. No lymphadenopathy. LUNGS: Clear at this time. HEART: Regular rate and rhythm. No murmurs, rubs or gallops. ABDOMEN: Benign. EXTREMITIES: Consistent with an aljky-yqd-jubd amputation. He does have normal postop swelling at this time. NEUROLOGIC: Seems mainly intact. LABORATORY DATA: His white count is 9.1, H&H of 6.3 and 19.8, and platelet count was noted to be 330. Sodium 133, potassium 4.3, BUN and creatinine of 66 and 5.9, and blood sugar was noted to be 84. ASSESSMENT: This is a 69-year-old gentleman admitted to the rehab with a working diagnosis of status post revision of a nlofr-vaj-rlzv to an varug-zmj-mgwx amputation with prolonged hospitalization. The patient has potential to make improvement. We will institute the following multidisciplinary therapies including, but not limited to, physical, occupational, respiratory, speech, nutritional services, prosthetics, and orthotics. Given his complex medical condition and risks for more complications, rehabilitation services cannot be provided at a lower level of care such as a skilled nurse facility. PLAN: 1. Admit to [facility] for an inpatient therapy to include the following disciplines; A. Physical therapy to improve gait, all transfer skills, and bed mobility to modified independent level. B. Occupational therapy to modified independent level. C. Case management to assist with discharge planning and placement options. D. Nutrition to assist with nutritional needs. E. Rehabilitation nursing to assist in monitoring the patient's underlying medical conditions and to assist with any type of bowel or bladder management. 2. The patient's current medication and medical care will be continued. 3. The patient will be placed on standard fall precautions. 4. The patient's estimated length of stay is approximately 7-10 days. 5. We will discuss the patient during care team staff meeting this week. TRANSINT:[id number] Voice Confirmation ID: [id number] DOCUMENT ID: [id number] DAISY notes whether there has been none or any medical/functional change since admission: - No change since prescreen. HISTORY AND PHYSICAL [id number] COLTEN DENG attests patient continues to be appropriate for IRF: - Continues to be appropriate. ELZBIETA HAQUE MD at 1424 CC: [id number] DICTATION DATE: 02/22/19 0856 PRODUCTION MACHINE SHOP SUPERVISOR: 02/22/19 1149 ADM IN [facility] [address] [place] [address]
--- NOTE | 2019-02-22 15:00 | NUR ---
PREMEDS FOR BLOOD GIVEN ORDERED
--- NOTE | 2019-02-22 15:25 | NUR ---
PT 1ST UNIT OF PRBC STARTED ORDERED
[2019-02-22 18:17] VITALS: BP 145/55
--- NOTE | 2019-02-22 19:15 | NUR ---
PT LYING IN BED. IN ROOM. BLOOD TRANSFUSING AT THIS TIME. VITALS WNL. DENIES NEEDS AT THIS TIME. COMPLAINS OF PAIN IN LEFT KNEE AND BUTT. WILL GET PAIN MED PER MAR. CALL LIGHT IN REACH. BED IN LOW. SIDE RAILS X3. RESP EVEN AND UNLABORED. LUNGS CLEAR. BOWEL HYPOACTIVE. ASSESSMENT COMPLETED. BLOOD INFUSING INTO RIGHT CHEST INFUSAPORT.
[2019-02-22 20:55] VITALS: BP 146/94
--- NOTE | 2019-02-22 21:45 | NUR ---
BLOOD COMPLETED. VITALS 93/56, PULSE 76, TEMP 100.1, RESP 17. WILL CONTINUE TO MONITOR TEMP PAIN MEDICATION GIVEN EARLIER WITH TYLENOL IN MED. PT DENIES NEEDS OR PAIN AT THIS TIME. IN ROOM. NO DISTRESS NOTED. RESP EVEN AND UNLABORED. STATES HE FEELS NORMAL. WILL CONTINUE TO MONITOR. CALL LIGHT IN REACH.
[2019-02-23 00:30] VITALS: BP 99/46
--- NOTE | 2019-02-23 02:36 | NUR ---
RESTING IN BED WITH RESPIRATIONS UNLABORED. NO DISTRESS NOTED. CALL LIGHT IN REACH.
--- NOTE | 2019-02-23 04:35 | NUR ---
PT RESTING QUIETLY. CALL LIGHT IN REACH. NO DISTRESS NOTED. WCTM. IN ROOM
[2019-02-23 05:49] VITALS: BP 98/56
--- NOTE | 2019-02-23 08:00 | NUR ---
PATIENT SITTING UP IN BED TO EAT BREAKFAST. AT BEDSIDE, STAYED IN PATIENTS ROOM ALL NIGHT. CALL LIGHT WITHIN REACH. VOICES NO NEEDS AT THIS TIME. WILL CONTINUE WITH PLAN OF CARE
--- NOTE | 2019-02-23 10:06 | NUR ---
THIS NURSE TALKED TO FINISHING MACHINE TENDER. DR VILLELA HAS WRITTEN ORDERS FOR PATIENT TO HAVE RENAL DIALYSIS TODAY
[2019-02-23 12:16] VITALS: BP 87/53
--- NOTE | 2019-02-23 14:08 | NUR ---
PATIENT RESTING BACK IN BED AFTER THERAPY. PATIENT IS A TOTAL ASST FROM WHEELCHAIR BACK TO BED USING SLIDING BOARD
--- NOTE | 2019-02-23 15:32 | NUR ---
PATIENT TAKEN OVER TO DIALYSIS CLINIC BY STAFF
--- NOTE | 2019-02-23 18:04 | NUR ---
PATIENT BROUGHT BACK FROM DIALYSIS CLINIC BY STAFF
--- NOTE | 2019-02-23 18:35 | NUR ---
RIGHT FOREARM CIRCUMFERANCE MEASURED DUE TO SWELLING, ENLARGED. MEASURED 33.2 CM. TO BE MEASURED DAILY
--- NOTE | 2019-02-23 19:33 | NUR ---
PT RESTING QUIETLY IN BED. CALL LIGHT IN REACH. BED IN LOW SIDE RAILS X3. RESP EVEN AND UNLABORED. EYES CLOSED. NO DISTRESS OR PAIN NOTED. WILL CONTINUE TO MONITOR.
--- NOTE | 2019-02-23 21:50 | NUR ---
PT LYING IN BED. CALL LIGHT IN REACH. DENIES NEEDS OR PAIN AT THIS TIME. PM MEDS GIVEN. TOLERATED WELL. NO DISTRESS NOTED. BED IN LOW. LEFT LEG IN HEEL PROTECTIVE BOOT. WCTM
[2019-02-24 00:17] VITALS: BP 146/52
--- NOTE | 2019-02-24 03:14 | NUR ---
ASSISTED TURNING PT ON LEFT SIDE. PAIN MED GIVEN DUE TO PAIN IN LEFT HIP. WCTM. CL IN REACH
--- NOTE | 2019-02-24 05:35 | NUR ---
RESTING IN BED WITHR RESPIRATIONS UNLABORED. NO DISTRESS NOTED. CALL LIGHT IN REACH.
[2019-02-24 06:13] VITALS: BP 140/59
--- NOTE | 2019-02-24 09:17 | NUR ---
THE PATIENT WAS LYING IN BED WHEN STAFF ENTERED HIS ROOM. BED IS IN THE LOW POSITION WITH SIDERAILS X2 AND CALL LIGHT WITHIN REACH. THE PATIENT DEMONSTRATES APPROPRIATE USE OF A CALL LIGHT. THE PATIENT APPEARS COMFORTABLE WITH NO QUESTIONS OR CONCERNS AT THIS TIME.
[2019-02-24 12:25] VITALS: BP 89/45
--- NOTE | 2019-02-24 14:58 | NUR ---
RIGHT FOREARM MEASUREMENT IS 34CM.
[2019-02-24 18:10] VITALS: BP 160/121
--- NOTE | 2019-02-24 19:45 | NUR ---
ASSISTED PT WITH BEDPAN, PT HAS MIDIUM AMOUNT OF BROWN FIRM STOOL.
--- NOTE | 2019-02-24 22:02 | NUR ---
PATIENT RESTING QUIETLY IN BED AT THIS TIME. WILL CONTINUE TO MONITOR./
[2019-02-25 00:18] VITALS: BP 145/98
--- NOTE | 2019-02-25 02:18 | NUR ---
REST IN BED, AT BEDSIDE, CALL LIGHT IN REACH.
--- NOTE | 2019-02-25 04:41 | NUR ---
LAYING RIGHT SIDE , EYE CLOSE, CALL LIGHT IN REACH.
[2019-02-25 05:58] VITALS: BP 111/52
[2019-02-25 06:54] LABS: BASOPHILS 0.1 % (0-2); EOSINOPHILS 4.9 % (0-7); HEMATOCRIT 22.2 % (42.0-54.0); IMMATURE GRANULOCYTES 0.2 % (0-5); LYMPHOCYTES 11.6 % (15-50); MCHC 32.9 g/dL (31.0-37.0); MCV 88.1 fL (80.0-100.0); MEAN PLATELET VOLUME 8.9 fL (7.4-10.4); MONOCYTES 6.6 % (2-11); NEUTROPHILS 76.6 % (40-80); PLATELET COUNT 313 10x3/uL (130-400); RBC 2.52 10x6/uL (4.20-6.10); RDW 16.3 % (11.5-14.5); WBC 9.6 10x3/uL (4.8-10.8)
[2019-02-25 07:01] LABS: HEMOGLOBIN 7.3 g/dL (13.5-17.5)
[2019-02-25 07:12] LABS: ANION GAP 15.1 mmol/L (8-16); CALCIUM 11.1 mg/dL (8.5-10.1); CARBON DIOXIDE 25.7 mmol/L (21.0-32.0); CREATININE - SERUM 6.8 mg/dL (0.6-1.3); POTASSIUM - SERUM 3.8 mmol/L (3.5-5.1)
--- NOTE | 2019-02-25 08:45 | NUR ---
ADMININSTERED MORNING MEDS WHOLE WITHOUT DIFFICULTY. C/O HEMORRHOIDAL PAIN APPLIED PREP-H TO HEMORRHOID. DENIES ANY OTHER NEEDS AT THIS TIME. FAMILY ASLEEP AT BEDSIDE. CALL LIGHT WITHIN REACH, FALL PRECAUTIONS IN PLACE. WILL CONTINUE TO MONITOR
--- NOTE | 2019-02-25 11:12 | NUR ---
Nutrition follow up Renal diet with Nepro ordered TID Pt eating 50-75% of meals Pt reports no eating as much as he does at home Pt willing to drink the Nepro shakes which 3/d would provide an additional 60gm protein Offered to have kitchen chop meat however pt reports this is not necessary-no problems chewing Encouraged good protein intake RD following
[2019-02-25 11:55] VITALS: BP 70/26
--- NOTE | 2019-02-25 14:07 | NUR ---
SITTING UP IN W/C ALERT. NO SIGNS OF DISTRESS NOTED. CALL LIGHT WITHIN REACH, FALL PRECAUTIONS IN PLACE. WILL CONTINUE TO MONITOR
--- NOTE | 2019-02-25 15:03 | NUR ---
RIGHT ARM CIRCUMFERENCE 34CM
[2019-02-25 18:08] VITALS: BP 99/48
[2019-02-25 20:51] VITALS: BP 89/43
--- NOTE | 2019-02-25 23:10 | NUR ---
REC'D. IN BED EYES CLOSED RESP. DEEP AND EVEN.FAMILY AT BEDSIDE.MOUNIKA HAD NAUSEATED EARLIER TODAY. WILL CONTINUE TO MONITOR FOR ANY CHGES. AND FOLLOW CURRENT PLAN OF CARE
--- NOTE | 2019-02-26 01:42 | NUR ---
VS 97.7 89/48 74 16 02 SATS 93%.FAMILY AT BEDSIDE. NO DISTRESS OBSERVED
--- NOTE | 2019-02-26 02:20 | NUR ---
RESTING IN BED WITH RESPIRATIONS UNLABORED. FAMILY IN ROOM. NO DISTRESS NOTED. CALL LIGHT IN REACH.
--- NOTE | 2019-02-26 06:56 | NUR ---
VS 108/57 78 20 02 SATS 96% TEMP 99. NO SIGNS OR SYMPTOMS REGUARDING BP. IS AWARE. WILL CONTINUE TO MONITOR FOR ANY CHGES. AND FOLLOW CURRENT PLAN OF CARE
--- NOTE | 2019-02-26 07:15 | NUR ---
RECEIVED REPORT. LYING IN BED ON RIGHT SIDE EYES CLOSED RESTING. NO SIGNS OF DISTRESS NOTED. FAMILY ASLEEP IN ROOM. CALL LIGHT WITHIN REACH, FALL PRECAUTIONS IN PLACE. WILL CONTINUE TO MONITOR
[2019-02-26 07:26] VITALS: BP 108/57
[2019-02-26 11:58] VITALS: BP 112/75
--- NOTE | 2019-02-26 13:15 | NUR ---
TRANSPORTED BY BED TO DIALYSIS
--- NOTE | 2019-02-26 16:13 | NUR ---
TRANSPORTED TO FLOOR FROM DIALYSIS VIA BED
--- NOTE | 2019-02-26 16:39 | NUR ---
RIGHT ARM 34CM
[2019-02-26 18:00] VITALS: BP 76/39
[2019-02-26 18:46] VITALS: BP 108/42
--- NOTE | 2019-02-26 18:48 | NUR ---
LYING IN BED ON LEFT SIDE RESTING. DENIES ANY NEEDS OR PAIN. NO SIGNS OF DISTRESS NOTED
--- NOTE | 2019-02-26 20:00 | NUR ---
PATIENT RECEIVED SITTING UP IN BED WITH FAMILY IN ROOM. ASSESSMENT & VITAL SIGNS DONE. BED LOW. URINAL & CALL LIGHT WITHIN REACH. WILL CONTINUE TO MONITOR.
--- NOTE | 2019-02-26 21:30 | NUR ---
PATIENT PERSONAL MEDICATIONS NOT FOUND. NIGHT NURSE JOSE M ON MONDAY FOUND & STATED "I COULDN'T FIND IT LAST NIGHT EITHER." WILL REPORT TO DAY SHIFT NURSE TO ASK FAMILY IF MEDICATION IS AT HOME." WILL CONTINUE TO MONITOR.
--- NOTE | 2019-02-26 23:25 | NUR ---
PATIENT BED BATH GIVEN BY NIGHT ELECTRONIC SENSING EQUIPMENT ASSEMBLER. RIGHT ABOVE THE KNEE AMPUTATION HAS NO REDNESS, CLOSED, HEALED. PROTECTION CAP APPLIED AFTER BATH.
[2019-02-27] VITALS: BP 79/41
--- NOTE | 2019-02-27 03:00 | NUR ---
PATIENT EYES CLOSED. RESPIRATIONS 18 & EVEN. BED LOW. ALARM ON. CALL LIGHT WITHIN REACH. WILL CONTINUE TO MONITOR.
[2019-02-27 03:15] LABS: BASOPHILS 0.1 % (0-2); EOSINOPHILS 5.9 % (0-7); HEMATOCRIT 20.6 % (42.0-54.0); IMMATURE GRANULOCYTES 0.4 % (0-5); LYMPHOCYTES 13.5 % (15-50); MCH 31.2 pg (26.0-34.0); MCHC 33.5 g/dL (31.0-37.0); MEAN PLATELET VOLUME 8.7 fL (7.4-10.4); MONOCYTES 5.7 % (2-11); NEUTROPHILS 74.4 % (40-80); PLATELET COUNT 284 10x3/uL (130-400); RBC 2.21 10x6/uL (4.20-6.10); RDW 16.6 % (11.5-14.5); WBC 8.3 10x3/uL (4.8-10.8)
[2019-02-27 03:20] LABS: MCV 93.2 fL (80.0-100.0)
[2019-02-27 03:21] LABS: ANION GAP 12.3 mmol/L (8-16); CALCIUM 10.4 mg/dL (8.5-10.1); CARBON DIOXIDE 29.3 mmol/L (21.0-32.0); CREATININE - SERUM 5.8 mg/dL (0.6-1.3); HEMOGLOBIN 6.9 g/dL (13.5-17.5); POTASSIUM - SERUM 3.6 mmol/L (3.5-5.1)
--- NOTE | 2019-02-27 03:53 | NUR ---
PT IN BED LOWEST POSITION, EYES CLOSED OPENS EASILY TO VOICE, RESPIRATIONS SLOW AND EVEN, NO NEEDS NOTED, FLUIDS AND CALL LIGHT WITHIN REACH
--- NOTE | 2019-02-27 04:10 | NUR ---
CALLED & LEFT MESSAGE FOR DR. VILLELA OFFICE TO CALL THIS OFFICE IN REGARD TO CRITICAL HGB 6.9 & HCT 20.6.
--- NOTE | 2019-02-27 04:12 | NUR ---
DR MANOHAR BALTAZAR CALLED BACK IN REGARDS TO CRITICAL H&H ON DELANEY DENG. NEW ORDER FOR TYPE & CROSS. ONE UNIT PRBC'S. RECHECK ONE HOUR LATER.
--- NOTE | 2019-02-27 04:22 | NUR ---
LAB CALLED SPOKE WITH BEAR. NEW ORDER FOR TYPE & CROSS & ONE UNIT PRBC.
[2019-02-27 05:44] VITALS: BP 120/48
--- NOTE | 2019-02-27 08:00 | NUR ---
PATIENT SITTING UP IN BED T EAT BREAKFAST. CALL LIGHT WITHIN REACH. VOICES NO NEEDS AT THIS TIME. WILL CONTINUE WITH PLAN OF CARE
--- NOTE | 2019-02-27 10:07 | NUR ---
PATIENT IN REHAB ROOM. WORKING WITH PHYSICAL THRERAPIST. DENIES ANY PAIN/DISC AT THIS TIME.
--- NOTE | 2019-02-27 11:49 | NUR ---
DR DALE CONSULTED ON THIS PATIENT FOR SWELLING IN HIS LEFT KNEE
[2019-02-27 11:58] VITALS: BP 97/54
--- NOTE | 2019-02-27 12:00 | NUR ---
EATING LUNCH.DENIES NEEDS.
--- NOTE | 2019-02-27 16:29 | NUR ---
CIRCUMFERANCE AROUND LOWER RIGHT ARM IS 30.5CM
[2019-02-27 18:01] VITALS: BP 90/48
[2019-02-27 18:42] LABS: BASOPHILS 0.1 % (0-2); EOSINOPHILS 6.9 % (0-7); HEMATOCRIT 23.9 % (42.0-54.0); HEMOGLOBIN 7.8 g/dL (13.5-17.5); IMMATURE GRANULOCYTES 0.2 % (0-5); LYMPHOCYTES 11.6 % (15-50); MCH 28.8 pg (26.0-34.0); MCHC 32.6 g/dL (31.0-37.0); MEAN PLATELET VOLUME 8.8 fL (7.4-10.4); MONOCYTES 5.8 % (2-11); NEUTROPHILS 75.4 % (40-80); PLATELET COUNT 274 10x3/uL (130-400); WBC 8.3 10x3/uL (4.8-10.8)
[2019-02-27 18:49] LABS: MCV 88.2 fL (80.0-100.0); RBC 2.71 10x6/uL (4.20-6.10)
--- NOTE | 2019-02-27 19:34 | NUR ---
PT SITTING UP IN BED. VISITORS IN ROOM. DENIES NEEDS OR PAIN AT THIS TIME. BED IN LOW SIDE RAILS X2. CALL LIGHT IN REACH. RESP EVEN AND UNLABORED. A/O X4. LUNGS CLEAR. WILL CONTINUE TO MONITOR.
[2019-02-28] VITALS: BP 110/54
--- NOTE | 2019-02-28 01:12 | NUR ---
PT RESTING QUIETLY. CALL LIGHT IN REACH. NO DISTRESS NOTED. WCTM.
--- NOTE | 2019-02-28 01:32 | NUR ---
RESTING IN BED WITH EYES CLOSED AND RESPIRATIONS UNLABORED. NO DISTERSS NOTED. CALL LIGHT IN REACH.
--- NOTE | 2019-02-28 02:30 | NUR ---
PT RESTING QUIETLY. CALL LIGHT IN REACH. NO DISTRESS NOTED. RESP EVEN AND UNLABORED. WCTM
--- NOTE | 2019-02-28 05:52 | NUR ---
ADMINISTED 0600 PROTONIX. DENIES NEEDS AT THIS TIME. RESP EVEN AND UNLABORED. BED IN LOW. CL IN REACH. WCTM
[2019-02-28 06:09] VITALS: BP 134/83
--- NOTE | 2019-02-28 07:40 | NUR ---
RECEIVED REPORT. SITTING UP IN BED ALERT AND ORIENTED X3. DENIES ANY NEEDS OR PAIN. NO SIGNS OF DISTRESS NOTED. CALL LIGHT WITHIN REACH, FALL PRECAUTIONS IN PLACE. OVERLAY ON AND FUNCTIONING PROPERLY
[2019-02-28 10:36] LABS: PROTEIN - BODY FLUID 4.9 G/DL
[2019-02-28 12:18] VITALS: BP 93/61
--- NOTE | 2019-02-28 13:19 | NUR ---
SITTING UP IN BED VISITING WITH FAMILY. NO SIGNS OF DISTRESS NOTED
--- NOTE | 2019-02-28 14:01 | NUR ---
TRINIDAD CARR CALLED AND ADVISED PT IS NEEDING TO BE ADMITTED TO [facility] II R/T LEFT KNEE INFECTION AND IS NEEDING SURGERY IN THE AM.
--- NOTE | 2019-02-28 14:15 | NUR ---
CALLED AND INFORMED DR. HAQUE PT IS NEEDING TO BE DC FROM REHAB AND ADMITTED TO [facility] FOR SURGERY IN AM R/T LEFT KNEE INFECTION, DR. HAQUE GAVE VERBAL ORDERS TO DC. READ BACK ORDERS AND VERIFIED
[2019-02-28] MEDS ORDERED: RENAGEL800 MG PO (14:25)
[2019-02-28 14:36] LABS: ERYTHROCYTE SEDIMENTATION RATE 140 mm/hr (0-20)
--- NOTE | 2019-02-28 14:37 | NUR ---
PATIENT ADMITTED TO REHAB FROM [facility] WITH A RT. FATUMA . PATIENT HAS PROGRESSED IN THERAPY AND AT THIS TIME WILL DISCHARGE FROM REHAB AND ADDMITTED TO ACUTE FLOOR PENDING SURGERY ON HIS LEG.
[2019-02-28 15:00] LABS: MACROPHAGES BF 1 %; NEUT - BF 94 %
--- NOTE | 2019-02-28 15:06 | NUR ---
CALLED YOLANDA () PER PT REQUEST AND INFORMED HER THAT PT WILL BE MOVED TO MED II RM# [id number].
--- NOTE | 2019-02-28 15:27 | NUR ---
RIGHT FOREARM 30 CM
--- NOTE | 2019-02-28 15:55 | NUR ---
LYING IN BED EYES CLOSED RESTING. NO SIGN OF DISTRESS NOTED
--- NOTE | 2019-02-28 16:20 | NUR ---
TRANSPORTED PT VIA BED TO DIALYSIS
--- NOTE | 2019-02-28 17:37 | NUR ---
CALLED REPORT TO [facility]
== END 2019-02-28 17:45 | disposition short-term general hospital (02) | DRG 559 ==
LOC: D.REHAB 15:59
PROVIDERS: Orthopaedic Surgery; ADMIT Emergency Medicine; ATTEND Emergency Medicine
DX: Z47.81 Encounter for orthopedic aftercare following surgical amputation (principal); R65.21 Severe sepsis with septic shock; N18.6 End stage renal disease; I50.43 Acute on chronic combined systolic (congestive) and diastolic (congestive) heart failure; I13.2 Hypertensive heart and chronic kidney disease with heart failure and with stage 5 chronic kidney disease, or end stage renal disease; Z89.611 Acquired absence of right leg above knee; E03.9 Hypothyroidism, unspecified; I10 Essential (primary) hypertension; I50.9 Heart failure, unspecified; D50.9 Iron deficiency anemia, unspecified; G47.33 Obstructive sleep apnea (adult) (pediatric); D63.1 Anemia in chronic kidney disease; I48.0 Paroxysmal atrial fibrillation; I95.9 Hypotension, unspecified; E83.52 Hypercalcemia; L89.302 Pressure ulcer of unspecified buttock, stage 2; L89.892 Pressure ulcer of other site, stage 2

== ENCOUNTER 2019-02-28 15:13 | Inpatient (IN) | payer MEDICARE, BC ==
[~2019-02-28] VITALS: Ht 177.8 cm; Wt 80.7 kg
[~2019-02-28 15:13] MED LIST changes: +ASPIRIN81 MG PO; +CHRONULAC30 ML PO; +COLACE100 MG PO; +CYPROHEPTAD2 MG/5 ML PO; +FERROUS SULFAT325 MG PO; +LIPITOR80 MG PO; +NEPHRO-VITE RX1 TAB PO; +PERCOCET 10-321 EAC1 PO; +PROCHLORPERAZ5 MG/M1 PO; +PROCRIT/EP10000 UNIT SC; +REQUIP1 MG PO; +SENSIPAR30 MG PO; +SYNTHROID100 MCG PO
[2019-02-28 21:04] VITALS: BP 184/81
[2019-02-28 22:20] VITALS: BP 114/61; BMI 25.5
[2019-03-01] VITALS (12 sets, daily range): BP systolic 83–119; BP diastolic 26–71; Ht 177.8 cm; Wt 80.7 kg
--- NOTE | 2019-03-01 07:10 | NUR ---
REPORT RECIEVED FROM DAY SHIFT AND PATIENT CARE ASSUMED. PATIENT LAYING IN BED ON BACK WITH LEFT LEG ELEVATED. PATIENT IS STABLE AND VSS . WILL CONTINUE WITH PLAN OF CARE. SR UP X 2 BED IN LOW POSTION AND CALL LIGHT IN REACH.
--- NOTE | 2019-03-01 07:15 | NUR ---
TO SURGERY VIA BED
--- NOTE | 2019-03-01 09:58 | NUR ---
ADOLFO, DIRECTOR OF ANALYTICS NOTIFIED OF SKIN BREAKDOWN ON THIS PT. WILL REEVALUATE UPON RETURN TO [facility]
--- NOTE | 2019-03-01 10:15 | NUR ---
RETURNED TO ROOM FROM SURGERY VIA BED. REMAINS DROWSY BUT OPENS EYES TO NAME. STATES NO PAIN AT PRESENT TIME JUST A SORE FEELING. ASSESSMENT COMPLETED AND NO REQUESTS VOICED. DRESSING TO RIGHT KNEE C/D/I.
[2019-03-01 11:43] LABS: BASOPHILS 0.3 % (0-2); EOSINOPHILS 5.2 % (0-7); IMMATURE GRANULOCYTES 0.5 % (0-5); LYMPHOCYTES 11.9 % (15-50); MCHC 32.4 g/dL (31.0-37.0); MCV 89.7 fL (80.0-100.0); MONOCYTES 5.8 % (2-11); NEUTROPHILS 76.3 % (40-80); PLATELET COUNT 305 10x3/uL (130-400); RDW 16.2 % (11.5-14.5); WBC 7.7 10x3/uL (4.8-10.8)
[2019-03-01 11:49] LABS: HEMATOCRIT 31.2 % (42.0-54.0); HEMOGLOBIN 10.1 g/dL (13.5-17.5); RBC 3.48 10x6/uL (4.20-6.10)
[2019-03-01 12:13] LABS: ANION GAP 13.6 mmol/L (8-16); BILIRUBIN - TOTAL 0.65 mg/dL (0.2-1.3); CALCIUM 10.6 mg/dL (8.5-10.1); CARBON DIOXIDE 29.2 mmol/L (21.0-32.0); CREATININE - SERUM 4.8 mg/dL (0.6-1.3); POTASSIUM - SERUM 3.8 mmol/L (3.5-5.1); PROTEIN - SERUM 7.1 g/dL (6.4-8.2)
--- NOTE | 2019-03-01 12:51 | NUR ---
Pt has a stage 2 pressure injury on right gluteal fold measuring 2cm x 1.5cm x 0.2cm and some scattered peeling skin on upper buttock. Left buttock has excoriation on upper buttock. Left heel is boggy and left calf has an open area measuring 1cm x 1cm. Calmoseptine cream is being applied to bottom and faith area and pt is being turned/repositioned q 2 hours. Left heel is being floated on pillows and calf wound is open to air. Wound care will continue monitoring.
--- NOTE | 2019-03-01 14:40 | NUR ---
I have reviewed this patient and I concur with the Shift Assessment completed by the Licensed Practical Nurse today this shift.
--- NOTE | 2019-03-01 15:14 | NUR ---
PT DECLINES WEARING SCD'S DUE TO SWELLING AND DISCOMFORT RIGHT LEG. PT IS RECEIVING LOVENOX.
--- NOTE | 2019-03-01 23:10 | NUR ---
RESUMING PATIENT CARE. PATIENT RESTING COMFORTABLY IN BED. RESPIRATIONS ARE EVEN AND UNLABORED. NO S/S OF DISTRESS. NO C/O PAIN. CALL LIGHT WITHIN REACH. WILL CPOC.
--- NOTE | 2019-03-01 23:14 | NUR ---
PATIENT LAYING ON BACK IN BED WITH LEFT LEG ELEVATED ON PILLOW. EYES ARE CLOSED AND RESPIRATIONS ARE EVEN AND NON LABORED. WILL CONTINUE TO MONITOR. SR UP X 2 BED IN LOW POSITION AND CALL LIGHT IN REACH.
--- NOTE | 2019-03-02 03:04 | NUR ---
PATIENT RESTING COMFORTABLY I BED. RESPIRATIONS ARE EVEN AND UNLABORED. NO S/S OF DISTRESS. NO C/O PAIN. CALL LIGHT WITHIN REACH. WILL CPOC.
[2019-03-02 03:41] LABS: BASOPHILS 0.2 % (0-2); EOSINOPHILS 5.5 % (0-7); HEMATOCRIT 29.3 % (42.0-54.0); HEMOGLOBIN 9.5 g/dL (13.5-17.5); IMMATURE GRANULOCYTES 0.5 % (0-5); LYMPHOCYTES 15.7 % (15-50); MCH 28.9 pg (26.0-34.0); MCHC 32.4 g/dL (31.0-37.0); MCV 89.1 fL (80.0-100.0); MEAN PLATELET VOLUME 8.6 fL (7.4-10.4); MONOCYTES 9.1 % (2-11); PLATELET COUNT 271 10x3/uL (130-400); RBC 3.29 10x6/uL (4.20-6.10); RDW 16.1 % (11.5-14.5)
[2019-03-02 03:55] LABS: ALBUMIN 1.6 g/dL (3.4-5.0); ANION GAP 12.8 mmol/L (8-16); BILIRUBIN - TOTAL 0.47 mg/dL (0.2-1.3); CARBON DIOXIDE 27.9 mmol/L (21.0-32.0); CREATININE - SERUM 5.4 mg/dL (0.6-1.3); POTASSIUM - SERUM 3.7 mmol/L (3.5-5.1); PROTEIN - SERUM 6.8 g/dL (6.4-8.2); VANCOMYCIN - RANDOM 11.9 ug/mL (10.0-20.0)
[2019-03-02 04:00] VITALS: BP 117/43
--- NOTE | 2019-03-02 07:10 | NUR ---
REPORT RECEIVED FROM AUTOMATION CONTROL INTEGRATOR AND PATIENT CARE ASSUMED. PATIENT LAYING IN BED ON BACK WITH LEFT LEG ELEVATED ON PILLOW. EYES ARE CLOSED AND RESPIRATIONS ARE EVEN AND NON-LABORED. PATIENT IS STABLE AND VSS. WILL CONTINUE WITH PLAN OF CARE. SR UP X 2 BED IN LOW POSITION AND CALL LIGHT IN REACH.
[2019-03-02 08:33] VITALS: BP 143/76
--- NOTE | 2019-03-02 11:15 | NUR ---
PATIENT IS STABLE AND VSS. PATIENT TO DIALYSIS VIA HOSPITAL BED AND HOSPITAL PERSONNEL.
[2019-03-02 15:45] VITALS: BP 149/80
--- NOTE | 2019-03-02 16:21 | NUR ---
REPOSITIONED PATIENT TO LEFT SIDE FOR COMFORT. PATIENT IS STABLE AND VSS. PATIENT DENIES ANY NEEDS OR PAIN. WILL CONTINUE TO MONITOR. SR UP X 2 BED IN LOW POSTION AND CALL LIGHT IN REACH.
--- NOTE | 2019-03-02 19:54 | NUR ---
RECIEVED UP IN BED WITH EYES OPEN AND TV ON. ALERT AND ORIENTED X4. DSG TO LEFT KNEE WITH IAN WRAP. CDI.RIGHT AKA. BED REST AT THIS TIME. INFUSA PORT TO RIGHT CHEST WITH NS AT TKO. LEFT FOOT FLOATED ON A PILLOW. DRESSING TO BUTTOCKS CDI. AVF TO RIGHT AND LEFT ARM. LEFT ARM HAS NO BRUIT OR TRILL. REMAINS ON 1ST STEP OVERLAY MATTRESS. DENIES ANY NEEDS AT THIS TIME.
[2019-03-02 20:22] VITALS: BP 104/32
[2019-03-03 03:57] LABS: BASOPHILS 0.3 % (0-2); EOSINOPHILS 5.8 % (0-7); HEMATOCRIT 28.6 % (42.0-54.0); HEMOGLOBIN 9.1 g/dL (13.5-17.5); IMMATURE GRANULOCYTES 0.2 % (0-5); LYMPHOCYTES 15.3 % (15-50); MCH 29.1 pg (26.0-34.0); MCHC 31.8 g/dL (31.0-37.0); MEAN PLATELET VOLUME 8.6 fL (7.4-10.4); MONOCYTES 8.7 % (2-11); NEUTROPHILS 69.7 % (40-80); PLATELET COUNT 293 10x3/uL (130-400); RBC 3.13 10x6/uL (4.20-6.10); RDW 16.4 % (11.5-14.5); WBC 9.5 10x3/uL (4.8-10.8)
[2019-03-03 03:58] LABS: MCV 91.4 fL (80.0-100.0)
[2019-03-03 04:01] LABS: ALBUMIN 1.8 g/dL (3.4-5.0); ANION GAP 12.9 mmol/L (8-16); BILIRUBIN - TOTAL 0.44 mg/dL (0.2-1.3); CALCIUM 10.7 mg/dL (8.5-10.1); CARBON DIOXIDE 28.8 mmol/L (21.0-32.0); CREATININE - SERUM 4.3 mg/dL (0.6-1.3); POTASSIUM - SERUM 3.7 mmol/L (3.5-5.1); PROTEIN - SERUM 6.9 g/dL (6.4-8.2); VANCOMYCIN - RANDOM 8.6 ug/mL (10.0-20.0)
[2019-03-03 05:38] VITALS: BP 107/60
--- NOTE | 2019-03-03 07:10 | NUR ---
RECEIVED FROM NIGHTSHIFT REPORT. HE WAS REPOSITIONED WITH GOWN ON AND FIXED IN HIS BED FOR BREAKFAST. CL IN REACH. TRAY WAS FIXED TO HIS LIKING AND HE HAD BEGONE TO FEED SELF. INFUSAPORT IS INTACT.
[2019-03-03 08:31] VITALS: BP 128/66
--- NOTE | 2019-03-03 10:15 | NUR ---
HE IS ALERT. USES CL PRN. CONSTANT WANTING REPOSITIONED IN BED. RESP EVEN WITHOUT LABOR. RIGHT CHEST INFUSAPORT. DRESSING INTACT TO LEFT KNEE WITH IAN WRAP.
[2019-03-03 12:06] VITALS: BP 130/72
[2019-03-03 15:04] VITALS: BP 122/63
--- NOTE | 2019-03-03 17:15 | NUR ---
REFUSED TO EAT HIS SUPPER EVEN AFTER ENCOURAGEMENT. HE WANTED AND WAS PROVIDED ICEWATER AND NEPHRO WAS GIVEN WHICH HE CONSUMED. HE WAS REPOSITIONED AND IS ON 1ST STEP OVERLAY MATTRESS
--- NOTE | 2019-03-03 19:26 | NUR ---
RECIEVED UP IN BED WITH EYES OPEN AND TV ON. ALERT AND ORIENTED X4. RIGHT AKA AND LEFT LEG HAS DSG TO KNEE THAT IS CDI. ON BEDREST AT THIS TIME. INFUSA PORT TO RIGHT CHEST WITH NS AT TKO. RIGHT ARM RESERVED D/T AVF. REMAINS ON 1ST STEP OVERLAY MATTRESS R/T STAGE 2 ON GLEATEAL FOLD AND BUTTOCKS EXCORIATED. TURND AND REPOSITIONED PRN FOR PRESSURE RELIEF. DENIES ANY NEEDS AT THIS TIME.
[2019-03-03 20:00] VITALS: BP 120/45
[2019-03-04] VITALS: BP 126/58
[2019-03-04 04:00] VITALS: BP 108/46
[2019-03-04 05:41] LABS: BASOPHILS 0.2 % (0-2); HEMATOCRIT 26.9 % (42.0-54.0); HEMOGLOBIN 8.6 g/dL (13.5-17.5); IMMATURE GRANULOCYTES 0.4 % (0-5); LYMPHOCYTES 10.7 % (15-50); MCH 28.4 pg (26.0-34.0); MEAN PLATELET VOLUME 8.5 fL (7.4-10.4); MONOCYTES 6.8 % (2-11); NEUTROPHILS 75.9 % (40-80); PLATELET COUNT 278 10x3/uL (130-400); RBC 3.03 10x6/uL (4.20-6.10); RDW 16.3 % (11.5-14.5); WBC 9.3 10x3/uL (4.8-10.8)
[2019-03-04 06:02] LABS: MCV 88.8 fL (80.0-100.0)
[2019-03-04 06:05] LABS: ALBUMIN 1.7 g/dL (3.4-5.0); ANION GAP 12.8 mmol/L (8-16); BILIRUBIN - TOTAL 0.58 mg/dL (0.2-1.3); CALCIUM 11.3 mg/dL (8.5-10.1); CARBON DIOXIDE 27.9 mmol/L (21.0-32.0); POTASSIUM - SERUM 3.7 mmol/L (3.5-5.1); PROTEIN - SERUM 6.8 g/dL (6.4-8.2)
[2019-03-04 06:11] LABS: CREATININE - SERUM 5.4 mg/dL (0.6-1.3)
--- NOTE | 2019-03-04 07:42 | NUR ---
REPORT RECEIVED. WILL CONTINUE WITH POC. PT CURRENTLY LYING SEMI FOWLERS. CALL LIGHT W/I REACH. PT IS AAO AND BEDFAST. RR EVEN AND UNLABORED ON RA. NS INFUSING @KVO VIA R.CHEST PORT. NO S/S OF DISTRESS NOTED. PT DENIES ANY NEEDS. WILL CTM.
[2019-03-04 09:04] VITALS: BP 92/42
--- NOTE | 2019-03-04 14:08 | NUR ---
ASSISTED TELECASTING TECHNICIAN WITH BATH. APPLIED CALMOSEPTIME TO TWO STAGE 2 SORES ON BOTTOM, APPLIED MEPILEX, FLOATED HEELS, CLEANED PT, APPLIED LOTION AND NEW LINEN. PT DENIES ANY NEEDS. WILL CTM.
--- NOTE | 2019-03-04 17:00 | NUR ---
I have reviewed this patient and I concur with the Shift Assessment completed by the Licensed Practical Nurse today this shift.
[2019-03-04 17:08] VITALS: BP 113/61
[2019-03-04 18:38] VITALS: BP 120/70
--- NOTE | 2019-03-04 19:43 | NUR ---
RECIEVED UP IN BED WITH EYES OPEN AND TV ON. ALERT AND ORIENTED X4. RIGHT CHEST INFUSA PORT WITH NS AT TKO. REMAINS BEDFAST. RIGHT AKA AND LEFT KNEE DSG INTACT. STG 2 X2 TO RIGHT GLEUTEAL FOLD. REMAINS ON 1ST STEP OVERLAY. DENIES ANY NEEDS AT THIS TIME.
[2019-03-04 20:00] VITALS: BP 113/46
[2019-03-05] VITALS: BP 97/54
[2019-03-05 04:00] VITALS: BP 128/70
[2019-03-05 06:39] LABS: BASOPHILS 0.2 % (0-2); EOSINOPHILS 5.8 % (0-7); HEMATOCRIT 27.6 % (42.0-54.0); HEMOGLOBIN 8.9 g/dL (13.5-17.5); IMMATURE GRANULOCYTES 0.4 % (0-5); LYMPHOCYTES 12.3 % (15-50); MCH 28.8 pg (26.0-34.0); MCHC 32.2 g/dL (31.0-37.0); MCV 89.3 fL (80.0-100.0); MONOCYTES 6.1 % (2-11); NEUTROPHILS 75.2 % (40-80); PLATELET COUNT 276 10x3/uL (130-400); RBC 3.09 10x6/uL (4.20-6.10); RDW 16.1 % (11.5-14.5); WBC 8.4 10x3/uL (4.8-10.8)
[2019-03-05 06:42] LABS: ALBUMIN 1.8 g/dL (3.4-5.0); ANION GAP 16.8 mmol/L (8-16); BILIRUBIN - TOTAL 0.51 mg/dL (0.2-1.3); CALCIUM 10.8 mg/dL (8.5-10.1); CARBON DIOXIDE 25.3 mmol/L (21.0-32.0); CREATININE - SERUM 6.3 mg/dL (0.6-1.3); POTASSIUM - SERUM 4.1 mmol/L (3.5-5.1); PROTEIN - SERUM 6.3 g/dL (6.4-8.2); VANCOMYCIN - RANDOM 26.8 ug/mL (10.0-20.0)
[2019-03-05 08:20] VITALS: BP 107/49
--- NOTE | 2019-03-05 08:25 | NUR ---
ASLEEP AT PRESENT TIME. WILL CONTINUE TO MONITOR
--- NOTE | 2019-03-05 11:10 | NUR ---
TRANSPORTED OFF FLOOR TO DIALYSIS VIA BED
--- NOTE | 2019-03-05 14:26 | NUR ---
GAVE REPORT TO PT PRIMARY NURSE. MED 2 WILL COME TO TRANSPORT PT. 2L FLUID OFF. PT TOLERATED TX WELL.
--- NOTE | 2019-03-05 15:00 | OP ---
PATIENT NAME: COLTEN DENG MEDICAL RECORD: [id number] :[birth year] LOCATION:D.M2 D.2106 ADMISSION DATE:02/28/19 SURGEON: DELANEY DALE MD DATE OF OPERATION: 02/28/2019 PREOPERATIVE DIAGNOSIS: Infected left knee. POSTOPERATIVE DIAGNOSIS: Infected left knee. PROCEDURE: Arthroscopic I&D of the left knee with cultures taken. SURGEON: Delaney Dale MD ANESTHESIA: General. INTRAOPERATIVE COMPLICATIONS: None. SUMMARY OF PATHOLOGIC FINDINGS: The patient did have very turbid-appearing knee. He also had severe chondrocalcinosis with no meniscal pathology. 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 OPERATIVE SUMMARY IN DETAIL: After obtaining the appropriate preoperative orthopedic surgery consent as well as anesthetic consultation, evaluation and clearance, the patient was brought to the operating room and placed on the operating table in supine position. After adequate general laryngeal mask airway was administered, tourniquet was placed on the proximal aspect of the left lower extremity. Left lower extremity was then prepped and draped in routine sterile fashion. The leg was elevated and exsanguinated and tourniquet was inflated to 350 mmHg. Routine inferolateral portal was established, followed by superomedial portal and inferomedial portal. Diagnostic arthroscopy did reveal the above findings. Complete synovectomy was performed of both the superior patellar recess, medial and lateral gutter as well as the medial and lateral compartments. This was done with a 5.0 resector. A total of 12 liters of fluid were irrigated through the knee until the knee was completely devoid of any phlegmon-appearing synovitis or any area of infectious source. Having completed this, the arthroscopy portals were closed in routine interrupted fashion using 4-0 Prolene. Sterile dressings were applied. The patient was awakened and taken to recovery room in stable condition. All final needle and sponge counts were correct. TRANSINT:[id number] Voice Confirmation ID: [id number] DOCUMENT ID: [id number] DELANEY DALE MD at 1500 CC: [id number] DICTATION DATE: 03/05/19 0850 HAULAGE BOSS: 03/05/19 1003 ADM IN [place] [id number] [place] [address]
--- NOTE | 2019-03-05 15:15 | NUR ---
ORDER EARLY RECEIVED FROM COLLEEN HURTADO TO CHANGE DRESSING. DRESSING REMOVED. NO BLEEDING NOR DRAINAGE NOTED. SOME SWELLING AND KNEE IS WARM TO TOUCH. BANDAIDS APPLIED TO INCISIONS ORDERED.
[2019-03-05 18:42] VITALS: BP 110/43
--- NOTE | 2019-03-05 19:27 | NUR ---
RECIEVED UP IN BED WITH EYES OPEN AND TV ON. ALERT AND ORIENTED X4. RIGHT CHEST INFUSA PORT WITH NS@ 5 ML/HR. RIGHT AKA AND LEFT KNEE DSGS CDI. REMIANS BEDFAST. REPORTED GIVEN DIALYSIS TODAY. RESERVED RIGHT ARM. DSG CDI. LEFT ARM HAS OLD AVF. NO BRUIT OR TRILL TO SITE. DENIES ANY NEEDS AT THIS TIME.
--- NOTE | 2019-03-05 19:49 | NUR ---
DAUGHTER CAME ASKING ABOUT PT CANCER MEDICATION HE SHOULD BE TAKING. FOUND MEDICATION. PT HAS NOT BEEN GETTING SINCE DOWN IN REHAB FAR NURSE IS UNDERSTANDING. PAGED BHARTI THE DECORATING MACHINE OPERATOR WAITING FOR CALL BACK
[2019-03-05 20:00] VITALS: BP 104/55
[2019-03-06] VITALS: BP 89/30
[2019-03-06 04:00] VITALS: BP 112/43
--- NOTE | 2019-03-06 07:30 | NUR ---
RECEIVED A/A/OX4. DENIES ANY NEED FOR PAIN MEDS AT PRESENT TIME AND NO REQUESTS VOICED. BANDAIDS TO LEFT KNEE C/D/I AND LEFT HEEL FLOATED ON PILLOW. IV TO RIGHT CHEST INFUSAPORT AND INFUSING WELL. DRESSING C/D/I. ASSESSMENT COMPLETED AND WILL CONTINUE POC.
[2019-03-06 09:23] VITALS: BP 105/41
--- NOTE | 2019-03-06 11:30 | NUR ---
Rehab Prescreening Consult recieved and the chart has been reviewed. He is a recent patient in the ARU that did not complete his program. He still meets criteria and will be accepted back to the ARU when physician feels he is medically stable. Discussed with the CM Jay Ibarra. Mariposa Merida RN Clinical Liaison, Rehab
--- NOTE | 2019-03-06 12:46 | MORECARE ---
CASE MANAGEMENT DISCHARGE SUMMARY PATIENT: COLTEN DENG UNIT: [id number] ADM DATE: 02/28/19 AGE: 69 : [birth year] SEX: M ROOM/BED: D.2106 AUTHOR: VON,DOC PHYSICIAN: REFERRING PHYSICIAN: DELANEY DALE MD DATE OF SERVICE: 03/06/19 Discharge Plan Patient Name: COLTEN DENG Facility: [facility]:[place] : 1950 Planned Disposition: Inpatient Rehab Anticipated Discharge Date: 03/06/19 Discharge Date: Expected LOS: 6 Initial Reviewer: [email or web address] Initial Review Date: 03/06/2019 Generated: 03/06/19 1:45 pm Comments DCP- Discharge Planning Updated by [email or web address]: Neeraj Ibarra on 03/06/19 11:[address] Patient Name: COLTEN DENG Admission Status: Elective Accout number: [id number] Admission Date: 02-28-2019 : 1950 Admission Diagnosis:PAIN IN LEFT KNEE Attending: DELANEY DALE Current LOS: 6 Anticipated DC Date: 03-06-2019 Planned Disposition: Inpatient Rehab Primary Insurance: MEDICARE A & B PLANNED EXTERNAL PROVIDER: [facility] Discharge Planning Comments: CM RECEIVED INPATIENT REHAB PRESCREENING ORDER, RECEIVED CALL FROM [facility] WHO INFORMED CM THAT THEY WILL ACCEPT BACK FOR REHAB AND WILL TAKE TODAY IF DOCTOR IS READY TO DISCHARGE TO REHAB. CM MET WITH PT IN ROOM TO DISCUSS DISCHARGE PLANNING AND NEEDS. PT REPORTS LIVING AT HOME INDEPENDENTLY WITH IS DAUGHTER. PT HAS ROLLING WALKER AND WHEELCHAIR, PT HAS NOT BEEN USING THE WHEELCHAIR PRIOR TO THIS. PT HAS NO MEDICAL EQUIPMENT PROVIDER PREFERENCE. PT HAS NO OUTSIDE SERVICES ASSISTING IN THE HOME. CM DISCUSSED AVAILABILITY OF HOME HEALTH, REHAB SERVICES AND MEDICAL EQUIPMENT. PT REPORTS WAS IN REHAB AT [facility] BEFORE ADMIT AND THINKS HE NEEDS TO RETURN TO CONTINUE HIS THERAPY. IMPORTANT MESSAGE FROM MEDICARE PROVIDED AND EXPLAINED. RN CM HOUSE NOTIFIED DOCTORS, DISCHARGE ORDERS RECEIVED, RN CM HOUSE NOTIFIED [facility] OF INPATIENT REHAB. [facility] TO CONTACT MED 2 NURSE WITH ROOM NUMBER WHEN READY TO ACCEPT PT AND NURSE REPORT. Cardiovascular Specialist: Neeraj Whittemore DCPIA - Discharge Planning Initial Assessment Updated by [id number]: Neeraj Ibarra on 03/06/19 12:40 pm * Is the patient Alert and Oriented? Yes * How many steps to enter\\exit or inside your home? * PCP PATIENT CANNOT REMEMBER * Pharmacy [facility] * Preadmission Environment Home with Family * ADLs Independent * Equipment Rolling Walker Wheelchair * Other Equipment NO MEDICAL EQUIPMENT PROVIDER PREFERENCE * List name and contact numbers for known caregivers / representatives who currently or will assist patient after discharge: YOLANDA ILIA, SPOUSE, IFRAH SOWMYA, DTR, * Verbal permission to speak to the caregivers and representatives has been obtained from the patient. N/A * Community resources currently utilized Other * Please name any agencies selected above. OUTPATIENT DIALYSIS, [facility], MWF, 7AM, [facility] "THE [facility]" , PATIENT DOES NOT KNOW IF IT IS [facility] "IT" OR [employer] "SC[facility]" BUS. * Additional services required to return to the preadmission environment? No * Can the patient safely return to the preadmission environment? Yes * Has this patient been hospitalized within the prior 30 days at any hospital? Yes Coverage Notice Reviewer: [id number] - Neeraj Ibarra Notice Issued Date-Time: 03/06/2019 12:30 Notice Type: IM Discharge Notice Notice Delivered To: Patient Relationship to Patient: Therapeutic Sales Specialist Name: Delivery Method: HAND - Hand Delivered Griselda Days: Prior Verbal Notification: Recipient Understood Notice: Yes Recipient Signature: Yes Med Rec Note Co-signed by Attending: Coverage Notice Comment: Patient Name: COLTEN DENG Page [phone] at 1246 All edits/amendments must be made on the electronic document DICTATION DATE: 03/06/19 1245 REGISTERED MEDICAL ASSISTANT: GENNY 03/06/19 1245 RPT#: [id number] CO DATE: STATUS: ADM IN [facility] [address] [place] [address] END OF REPORT
[2019-03-06 13:18] VITALS: BP 112/42
--- NOTE | 2019-03-06 14:51 | NUR ---
I have reviewed this patient and I concur with the Shift Assessment completed by the Licensed Practical Nurse today this shift.
--- NOTE | 2019-03-06 17:30 | NUR ---
TRANSFERRED PER BED TO REHAB. REPORT CALLED AND PT INFORMED OF ALL INSTRUCTIONS. IV REMOVED FROM PORT.
--- NOTE | 2019-03-06 17:37 | NUR ---
OT NOTE: PT COMPLETED SUPINE TO SIT WITH MAX A. PT COMPLETED SITTING BALANCE WITH SBA. PT COMPLETED BUE AROM AXS AT EOB. PT COMPLETED GROOMING TASK WITH SET UP. THANK YOU, DARCY MTZ
== END 2019-03-06 17:30 | DRG 548 ==
LOC: D.MS 15:13 → D.M2 15:13
PROVIDERS: ADMIT Orthopaedic Surgery; ATTEND Orthopaedic Surgery
PROC: 0S9D4ZZ Drainage of Left Knee Joint, Percutaneous Endoscopic Approach (ICD-10-PCS; principal; 2019-02-28)
PROC: 5A1D70Z Performance of Urinary Filtration, Intermittent, Less than 6 Hours Per Day (ICD-10-PCS; 2019-02-28)
DX: M00.9 Pyogenic arthritis, unspecified (principal); N18.6 End stage renal disease; I12.0 Hypertensive chronic kidney disease with stage 5 chronic kidney disease or end stage renal disease; I25.10 Atherosclerotic heart disease of native coronary artery without angina pectoris; D64.9 Anemia, unspecified; C61 Malignant neoplasm of prostate; E03.9 Hypothyroidism, unspecified; Z89.611 Acquired absence of right leg above knee; I48.91 Unspecified atrial fibrillation

== ENCOUNTER 2019-03-06 18:36 | Inpatient (IN) | payer MEDICARE, BC ==
[~2019-03-06] VITALS: Ht 177.8 cm; Wt 78.7 kg
[2019-03-06 18:00] VITALS: BP 98/47
--- NOTE | 2019-03-06 19:46 | NUR ---
AWAKE AND ALERT. RESTING IN BED. RESPIRAITONS UNLABORED. ADMISSION IN PROGRESS. NO ACUTE DISTRESS NOTED. CALL LIGHT IN REACH.
[2019-03-06 20:52] VITALS: BP 98/47
[2019-03-07 00:35] VITALS: BP 102/43
--- NOTE | 2019-03-07 02:24 | NUR ---
RESTING IN BED WITH EYES CLOSED AND RESPIRATIONS UNLABORED. NO DISTRESS NOTED. CALL LIGHT IN REACH.
--- NOTE | 2019-03-07 05:24 | NUR ---
QUIET HOURS. RESTING IN BED. MEDICATED FOR C/O LEFT KNEE PAIN. WILL MONITOR FOR EFFECTIVENESS. RESPIRATIONS UNLABORED. NO DISTRESS NOTED. CALL LIGHT IN REACH.
[2019-03-07 06:01] LABS: BASOPHILS 0.1 % (0-2); EOSINOPHILS 3.9 % (0-7); HEMATOCRIT 26.6 % (42.0-54.0); HEMOGLOBIN 8.6 g/dL (13.5-17.5); IMMATURE GRANULOCYTES 0.1 % (0-5); LYMPHOCYTES 14.9 % (15-50); MCH 28.8 pg (26.0-34.0); MCHC 32.3 g/dL (31.0-37.0); MEAN PLATELET VOLUME 8.5 fL (7.4-10.4); MONOCYTES 6.6 % (2-11); NEUTROPHILS 74.4 % (40-80); PLATELET COUNT 276 10x3/uL (130-400); RBC 2.99 10x6/uL (4.20-6.10); RDW 15.9 % (11.5-14.5); WBC 8.8 10x3/uL (4.8-10.8)
[2019-03-07 06:19] LABS: CALCIUM 11.3 mg/dL (8.5-10.1); CARBON DIOXIDE 28.5 mmol/L (21.0-32.0); CREATININE - SERUM 5.5 mg/dL (0.6-1.3); POTASSIUM - SERUM 3.5 mmol/L (3.5-5.1)
[2019-03-07 06:21] VITALS: BP 108/49
--- NOTE | 2019-03-07 08:45 | NUR ---
PT AM MEDS ADMINISTERED. PT DENIES NEEDS. WCTM.
[2019-03-07 09:49] VITALS: BP 108/49
[2019-03-07 10:50] VITALS: Ht 177.8 cm; Wt 78.7 kg
--- NOTE | 2019-03-07 11:01 | NUR ---
Nutrition Follow Up: Pt was asleep at the time of RD visit. Spoke with nursing who reported pt may d/c today. Diet: Renal ADA PO Intake: 63% meal avg No BM since admit Wt stable I>O Meds and labs reviewed Rec continue current diet. RD following.
--- NOTE | 2019-03-07 16:18 | NUR ---
PT TAKEN TO DIALYSIS AT THISTIME.
[2019-03-07 18:00] VITALS: BP 87/41
--- NOTE | 2019-03-07 20:00 | NUR ---
BACK FROM DIALYSIS. REPORT GIVEN PER ELENA OREILLY. PATIENT AWAKE AND ALERT. RESPIRATIONS UNLABORED. RIGHT FISTULA INTACT. NO DISTRESS NOTED. DIALYSIS NURSE REPORTED PATIENTS BP GOT LOW AND HE WAS GIVEN ALBUMIN AND NOW BP IS 153/97. NOTED RIGHT BKA AND LEFT KNEE ARTHROSCOPY WITH BANDAIDS INTACT TO LEFT KNEE. CALL LIGHT IN REACH.
[2019-03-07 20:21] VITALS: BP 153/97
--- NOTE | 2019-03-07 22:01 | NUR ---
BLOOD PRESSURE NOTED 78/40 AT 2030. AND LEGS ELEVATED AND HEAD OF BED LOWERED. PATIENT STATED HE FELT FINE. RECHECK BP AT 2140 AND WAS 87/41. PATIENT CONTINUES TO STATE HE FEELS FINE. DENIES DIZZINESS OR WEAKNESS OR DISCOMFORT. BUSH HOG OPERATOR FOR DR PING BECERRA RETURNED CALL AND WAS INFORMED OF PATIENTS BLOOD PRESSURE. SHE STATED TO CONTINUE TO MONITOR CLOSELY AND IF IT GOT ANY LOWER TO CALL HER BACK. SHE STATED PATIENT MIGHT HAVE GOTTEN A LITTLE TOO DRY DURING DIALYSIS. PATIENT ALERT AND ORIENTED, RESPIRATIONS UNLABORED. INFORMED OF CALL TO ROBERTO ABDI AND HE VOICED UNDERSTANDING. I TOLD PATIENT I WOULD RECHECK BLOOD PRESSURE AT MIDNIGHT. HE VOICED UNDERSTANDING.
[2019-03-08] VITALS (7 sets, daily range): BP systolic 85–122; BP diastolic 24–52
--- NOTE | 2019-03-08 04:50 | NUR ---
RESTING IN BED. C/O BURNING IN LEFT FOOT/HEEL. WANTS NEUROPATHY MEDICATION. MESSAGE LEFT FOR DR HAQUE TO ADDRESS ON ROUNDS. NO ACUTE DISTRESS NOTED. CALL LIGHT IN REACH.
[2019-03-08 08:57] LABS: BASOPHILS 0.2 % (0-2); EOSINOPHILS 3.4 % (0-7); HEMATOCRIT 26.1 % (42.0-54.0); HEMOGLOBIN 8.3 g/dL (13.5-17.5); IMMATURE GRANULOCYTES 0.2 % (0-5); LYMPHOCYTES 11.8 % (15-50); MCH 28.2 pg (26.0-34.0); MCHC 31.8 g/dL (31.0-37.0); MCV 88.8 fL (80.0-100.0); MEAN PLATELET VOLUME 8.5 fL (7.4-10.4); MONOCYTES 6.8 % (2-11); NEUTROPHILS 77.6 % (40-80); PLATELET COUNT 260 10x3/uL (130-400); RBC 2.94 10x6/uL (4.20-6.10); RDW 15.8 % (11.5-14.5); WBC 9.4 10x3/uL (4.8-10.8)
[2019-03-08 09:30] LABS: ANION GAP 11.9 mmol/L (8-16); CALCIUM 10.4 mg/dL (8.5-10.1); CARBON DIOXIDE 29.1 mmol/L (21.0-32.0); THYROID STIMULATING HORMONE 7.09 uIU/mL (0.36-3.74); VANCOMYCIN - RANDOM 23.9 ug/mL (10.0-20.0)
--- NOTE | 2019-03-08 09:30 | NUR ---
PT AM MEDS ADMINISTERED. PT DENIES NEEDS. WCTM.
[2019-03-08 09:31] LABS: CREATININE - SERUM 4.1 mg/dL (0.6-1.3)
--- NOTE | 2019-03-08 18:22 | NUR ---
PT RESTING IN BED, DENIES NEEDS. WCTM.
--- NOTE | 2019-03-08 19:28 | NUR ---
AWAKE AND ALERT. RESPIRATIONS UNLABORED. ASSISTED TO SIT ON SIDE OF BED TO EAT SUPPER. LEFT FISTUALA INTACT. INFUSAPORT IN CHEST NOT ACCESSED. NO ACUTE DISTRESS NOTED. FAMILY IN ROOM. CALL LIGHT IN REACH.
[2019-03-09 00:04] VITALS: BP 117/38
--- NOTE | 2019-03-09 00:07 | NUR ---
RESTING IN BED AND EYES CLOSED. HAD BATH EARLIER IN SHIFT. NO DISTRESS NOTED. CALL LIGHT IN REACH.
--- NOTE | 2019-03-09 05:14 | NUR ---
QUIET HOURS. RESTING IN BED WITH RESPIRATIONS UNLABORED. NO DISTRESS NOTED. CALL LIGHT IN REACH.
[2019-03-09 06:10] VITALS: BP 110/41
--- NOTE | 2019-03-09 07:40 | NUR ---
ALERT AND ORIENTED. DIALYSIS T-TH-S. NO C/O PAIN. CL IN REACH.
[2019-03-09 08:51] VITALS: BP 103/52
[2019-03-09 13:05] VITALS: BP 108/59
--- NOTE | 2019-03-09 18:37 | NUR ---
RETURNED FROM DIALYSIS.2L REMOVED IN DIALYSIS. BP 91/51 70 98.5 16. NO CHANGE IN ASSESSMENT. CL IN REACH. REPOSITIONED UP IN BED. EATING DINNER AT THIS TIME.
--- NOTE | 2019-03-09 19:17 | NUR ---
PATIENT IS RESTING IN HIS BED. HE IS COMPLAINING OF GAS PAIN THAT MAKES HIM "FEEL THOUGH HE WILL MESS THE BED" AND GENERALIZED PAIN. HIS BED IS DOWN LOW WITH SIDE RAILS UP X3 AND CALL LIGHT IN REACH.
--- NOTE | 2019-03-10 00:04 | NUR ---
PATIENT IS RESTING IN HIS BED WITH EYES CLOSED. BED IS DOWN LOW. CALL LIGHT IS IN REACH.
--- NOTE | 2019-03-10 04:04 | NUR ---
PATIENT IS RESTING WITH EYES CLOSED. CALL LIGHT IN REACH.
[2019-03-10 06:35] VITALS: BP 147/30
--- NOTE | 2019-03-10 08:22 | NUR ---
CONSTIPATED. UNABLE TO HAVE BM. IMPACTION DIGITALY REMOVED. WILL ASK DR HAQUE FOR LAXATIVE.
[2019-03-10 08:34] VITALS: BP 98/43
--- NOTE | 2019-03-10 10:13 | NUR ---
RESTING WO C/O PAIN AT THIS TIME. CL IN REACH. RESP EVEN AND UNLABORED.
[2019-03-10 12:18] VITALS: BP 120/68
--- NOTE | 2019-03-10 15:41 | NUR ---
NO CHANGE IN ASSESSMENT. RESTING WO C/O PAIN AT THIS TIME. CL IN REACH.
[2019-03-10 16:48] VITALS: BP 109/63
--- NOTE | 2019-03-10 19:46 | NUR ---
REPORT RECIEVED AND ROUNDING COMPLETE. PATIENT LAYING IN BED EYES CLOSED. EASILY AROUSED WHEN I ENTERED ROOM. PATIENT STATES HE IS TIRED THIS EVENING AND IN LOOKING FORWARD TO THE RAIN HELPING HIM SLEEP TONIGHT. PATIENT STATES HE HAS NO NEEDS AT THIS TIME CALL LIGHT WITHIN REACH AND BED IN LOWEST POSITION.
--- NOTE | 2019-03-10 21:26 | NUR ---
PATIENT ASLEEP AT THIS TIME. WILL CONTINUE TO MONITOR.
--- NOTE | 2019-03-10 22:59 | NUR ---
PATIENT LAYING IN BED EYES CLOSED BREATHING EVEN AND UNLABORED. CALL LIGHT WITHIN REACH AND BED IN LOWEST POSITION.
[2019-03-11 00:41] VITALS: BP 112/55
--- NOTE | 2019-03-11 01:05 | NUR ---
PATIENT CALLED ME INTO ROOM. PATIENT STATED HE HAS A SORE SPOT ON THE BOTTOM OF LEFT FOOT. RUBBED SOME LOTION ON HIS FOOT AND ELEVATED FOOT ON PILLOWS TO KEEP HEEL OFF OF BED. NO OTHER NEEDS AT THIS TIME CALL LIGHT WITHIN REACH.
--- NOTE | 2019-03-11 04:23 | NUR ---
PATIENT IS LAYING IN BED EYES CLOSED AND BRETHING EVEN AND UNLABORED. CALL LIGTH WITHIN REACH
--- NOTE | 2019-03-11 05:18 | NUR ---
BED SCALE UNABLE TO WEIGHT PATIENT AT THIS TIME. PATIENT STATES HE CAN NOT GET OUT OF BED.
[2019-03-11 05:39] VITALS: BP 129/47
[2019-03-11 07:11] LABS: BASOPHILS 0.2 % (0-2); EOSINOPHILS 3.8 % (0-7); HEMATOCRIT 28.8 % (42.0-54.0); HEMOGLOBIN 9.1 g/dL (13.5-17.5); IMMATURE GRANULOCYTES 0.1 % (0-5); LYMPHOCYTES 12.3 % (15-50); MCH 28.3 pg (26.0-34.0); MCHC 31.6 g/dL (31.0-37.0); MCV 89.4 fL (80.0-100.0); MEAN PLATELET VOLUME 8.8 fL (7.4-10.4); MONOCYTES 5.3 % (2-11); NEUTROPHILS 78.3 % (40-80); PLATELET COUNT 259 10x3/uL (130-400); RBC 3.22 10x6/uL (4.20-6.10); RDW 16.1 % (11.5-14.5); WBC 8.7 10x3/uL (4.8-10.8)
--- NOTE | 2019-03-11 07:30 | NUR ---
RECEIVED REPORT. LYING IN BED ALERT AND ORIENTED X4. DENIES ANY NEEDS C/O LEFT KNEE DISCOMFORT WITH MOVEMENT. ASSISTED WITH GETTING DRESSED. APPLIED MEPILEX TO BOTTOM OF LEFT FOOT BELOW GREAT TOE, BLISTER WITH REDDENED NON BLANCHABLE AREA APPROX SIZE OF NICKEL.
[2019-03-11 07:46] LABS: ANION GAP 12.4 mmol/L (8-16); CALCIUM 10.8 mg/dL (8.5-10.1); CARBON DIOXIDE 29.5 mmol/L (21.0-32.0); CREATININE - SERUM 5.3 mg/dL (0.6-1.3); POTASSIUM - SERUM 3.9 mmol/L (3.5-5.1); VANCOMYCIN - RANDOM 17.2 ug/mL (10.0-20.0)
--- NOTE | 2019-03-11 09:04 | NUR ---
Nutrition Follow up: Patient reported good appetite with 75-100% PO intake. Pt likes nutrition supplement Nepro and has orders to receive with every meal. Pt stated he has not experienced any nausea or vomiting today. No complaints at this time. Will continue to monitor and follow up per protocol.
[2019-03-11 12:15] VITALS: BP 108/48
--- NOTE | 2019-03-11 14:59 | NUR ---
IN THERAPY GYM PARTICIPATING IN OT WITH FRANKLYN
[2019-03-11 18:08] VITALS: BP 104/54
--- NOTE | 2019-03-11 19:34 | NUR ---
AWAKE AND ALERT. JUST HAD A BATH. RIGHT ARM FISTULA INTACT. NOTED RIGHT AKA. DRESSING TO RIGHT KNEE INTACT. RIGHT CHEST INFUSAPORT ACCESSED WITH VANCOMYCIN INFUSING. NO ACUTE DISTRESS NOTED. CALL LIGHT IN REACH.
[2019-03-12 00:08] VITALS: BP 109/31
--- NOTE | 2019-03-12 05:12 | NUR ---
RESTING IN BED. HAS HAD 3 LOOSE BMS THIS SHIFT. RESPIRATIONS UNLABORED. CALL LIGHT IN REACH.
[2019-03-12 06:25] VITALS: BP 95/49
--- NOTE | 2019-03-12 07:55 | NUR ---
ALERT AND ORIENTED. NO DISTRESS NOTED. RESP EVEN AND UNLABORED. CL IN REACH.
[2019-03-12 08:57] VITALS: BP 105/29
--- NOTE | 2019-03-12 13:18 | NUR ---
CHANGED BED LINENS THIS AM. AT DIALYSIS AT THIS TIME.
--- NOTE | 2019-03-12 17:46 | NUR ---
RETURNED FROM DIALYSIS. NO DISTRESS NOTED. VSS.
[2019-03-12 17:47] VITALS: BP 120/42
--- NOTE | 2019-03-12 17:47 | NUR ---
R ARM FISTULA DRESSING CDI AFTER DIALYSIS.
--- NOTE | 2019-03-12 18:33 | NUR ---
NO CHANGE IN ASSESSMENT. NO C/O PAIN AT THIS TIME. CL IN REACH.
--- NOTE | 2019-03-12 19:06 | NUR ---
AWAKE AND ALERT. RESTING IN BED. RESPIRATIONS UNLABORED. RIGHT ARM FISTULA INTACT. NOTED RIGHT AKA. INCISION AND MILD SWELLING NOTED TO LEFT KNEE POST ARHTROSCOPY. RIGHT CHEST INFUSAPORT IS ACCESSED AND INTACT. NO DISTRESS NOTED. CALL LIGHT IN REACH.
--- NOTE | 2019-03-12 22:59 | NUR ---
MEDICATED WITH TUMS X 2 PO FOR C/O STOMACH GAS
[2019-03-13 00:12] VITALS: BP 91/52
--- NOTE | 2019-03-13 05:08 | NUR ---
QUIET HOURS. RESTING IN BED WITH NO DISTRESS NOTED. CALL LIGHT IN REACH.
[2019-03-13 06:34] VITALS: BP 92/35
[2019-03-13 07:20] LABS: BASOPHILS 0.2 % (0-2); EOSINOPHILS 5.2 % (0-7); HEMATOCRIT 27.2 % (42.0-54.0); HEMOGLOBIN 8.5 g/dL (13.5-17.5); IMMATURE GRANULOCYTES 0.1 % (0-5); LYMPHOCYTES 20.1 % (15-50); MCH 27.8 pg (26.0-34.0); MCHC 31.3 g/dL (31.0-37.0); MCV 88.9 fL (80.0-100.0); MONOCYTES 4.9 % (2-11); NEUTROPHILS 69.5 % (40-80); PLATELET COUNT 263 10x3/uL (130-400); RBC 3.06 10x6/uL (4.20-6.10); RDW 16.1 % (11.5-14.5); WBC 8.3 10x3/uL (4.8-10.8)
[2019-03-13 07:46] LABS: ANION GAP 12.8 mmol/L (8-16); CALCIUM 10.5 mg/dL (8.5-10.1); CARBON DIOXIDE 27.7 mmol/L (21.0-32.0); CREATININE - SERUM 4.4 mg/dL (0.6-1.3); POTASSIUM - SERUM 3.5 mmol/L (3.5-5.1)
--- NOTE | 2019-03-13 08:00 | NUR ---
PATIENT IS ALERT/ORIENT. EATTING BREAKFAST IN REHAB ROOM. OCCUAPTIONAL THERAPIST GETTING READY TO GIVE PATIENT SHOWER AFTER THERAPY
[2019-03-13 08:46] VITALS: BP 98/35
--- NOTE | 2019-03-13 09:49 | NUR ---
PATIENT IN REHAB ROOM. WORKING WITH PHYSICAL THERAPIST. DENIES ANY PAIN/DISC AT THIS TIME.
--- NOTE | 2019-03-13 12:00 | NUR ---
ANGELA THERAPY.DENIES NEEDS.
--- NOTE | 2019-03-13 12:57 | NUR ---
PATIENT SITTING UP IN WHEELCHAIR AT BEDSIDE TO EAT LUNCH
[2019-03-13 13:17] VITALS: BP 129/89
--- NOTE | 2019-03-13 17:38 | NUR ---
PATIENT HELPED BACK TO BED BY THERAPIST ET NURSE. TOTAL ASST FROM WHEELCHAIR TO BED. PATIENT HAS A FIRST STEP MATTRESS ON BED.
[2019-03-13 18:00] VITALS: BP 126/89; BP 84/44
--- NOTE | 2019-03-13 19:53 | NUR ---
AWAKE AND ALERT. RESPIRAITONS UNLABORED. NOTED RIGHT AKA. LEFT KNEE ARTHROSCOPY WITH HEALING INCISIONS. RIGHT ARM FISTULA INTACT. NO DISTRESS NOTED. CALL LIGHT IN REACH.
[2019-03-14 00:11] VITALS: BP 109/32
--- NOTE | 2019-03-14 05:14 | NUR ---
RESTING IN BED. HAS COUGHING EPISODE AT 11PM ON THIS SHIFT AND SCANT BLOOD NOTED IN MOUTH. SPUTUMN CLEAR. MESSAGE LEFT FOR DR HAQUE ON ROUNDS. NO FURTHER COUGHING FOR REMAINDER OF SHIFT. CALL LIGHT IN REACH.
[2019-03-14 06:14] VITALS: BP 108/40
--- NOTE | 2019-03-14 08:07 | NUR ---
PT RESTING IN BED WITH EYES OPEN CALL LIGHT IN REACH WILL MONITER
--- NOTE | 2019-03-14 08:09 | NUR ---
PT UP IN WHEELCHAIR CALL LIGHT IN REACH WILL MONITER
--- NOTE | 2019-03-14 11:34 | NUR ---
PATIENT ADMITTED BACK TO REHAB FROM ACUTE FLOOR. DISCHARGE PLANS ARE FOR HIM TO RETURN HOME ANDWILL CONTINUE HIS HD TREATMENT. WILL CONTINUE TO FOLLOW WITH PATIENT.
[2019-03-14 11:37] VITALS: BP 99/40
--- NOTE | 2019-03-14 13:15 | NUR ---
PT TRANSPORTED TO DIALYSIS BY BED
[2019-03-14 19:58] VITALS: BP 77/31
--- NOTE | 2019-03-14 20:00 | NUR ---
PATIENT RECEIVED SITTING UP IN BED WITH LEFT LEG ON PILLOW. VITAL SIGNS & ASSESSMENT DONE. NO C/O PAIN OR DISTRESS. BED LOW. CALL LIGHT WITHIN REACH. WILL CONTINUE TO MONITOR.
[2019-03-15 00:06] VITALS: BP 105/53
--- NOTE | 2019-03-15 00:17 | NUR ---
PATIENT AWAKE VITAL SIGNS DONE. PATIENT C/O PAIN LEVEL 7 TO COCCYX AREA. PATIENT TURNED TO LEFT SIDE & GIVEN PAIN MEDICATION. CALL LIGHT WITHIN REACH. WILL CONTINUE TO MONITOR.
--- NOTE | 2019-03-15 00:56 | NUR ---
PAIN MEDICATION EFFECTIVE FOR PAIN. PATIENT EYES CLOSED. RESPIRATIONS 18 & EVEN. BED LOW. CALL LIGHT WITHIN REACH. WILL CONTINUE TO MONITOR.
--- NOTE | 2019-03-15 03:10 | NUR ---
PT IN BED LOWEST POSITION, EYES CLOSED AROUSES EASILY TO VOICE, RESPIRATIONS EVEN AND UNLABORED, NO NEEDS NOTED, FLUIDS AND CALL LIGHT WITHIN REACH.
[2019-03-15 06:23] VITALS: BP 93/46
--- NOTE | 2019-03-15 07:00 | NUR ---
RECEIVED REPORT. SITTING UP IN BED ALERT AND ORIENTED X4. ASSISTED PT OFF BEDPAIN MED BOWEL MOVEMENT. DENIES ANY NEEDS OR PAIN. RR EVEN AND UNLABORED. CALL LIGHT WITHIN REACH, FALL PRECAUTIONS IN PLACE. WILL CONTINUE TO MONITOR
[2019-03-15 07:05] LABS: CALCIUM 10.4 mg/dL (8.5-10.1); CARBON DIOXIDE 30.5 mmol/L (21.0-32.0); CREATININE - SERUM 4.2 mg/dL (0.6-1.3); PHOSPHOROUS 2.1 mg/dL (2.5-4.9); POTASSIUM - SERUM 3.5 mmol/L (3.5-5.1); THYROID STIMULATING HORMONE 7.86 uIU/mL (0.36-3.74); URIC ACID 2.9 mg/dL (2.6-7.2); VANCOMYCIN - RANDOM 17.1 ug/mL (10.0-20.0)
[2019-03-15 07:11] LABS: BASOPHILS 0.2 % (0-2); EOSINOPHILS 4.7 % (0-7); IMMATURE GRANULOCYTES 0.2 % (0-5); LYMPHOCYTES 20.6 % (15-50); MCH 27.7 pg (26.0-34.0); MCHC 31.3 g/dL (31.0-37.0); MCV 88.6 fL (80.0-100.0); MEAN PLATELET VOLUME 8.9 fL (7.4-10.4); MONOCYTES 7.3 % (2-11); PLATELET COUNT 286 10x3/uL (130-400); RBC 2.71 10x6/uL (4.20-6.10); RDW 16.1 % (11.5-14.5); WBC 6.4 10x3/uL (4.8-10.8)
[2019-03-15 07:13] LABS: HEMOGLOBIN 7.5 g/dL (13.5-17.5)
--- NOTE | 2019-03-15 11:03 | NUR ---
IN THERAPY GYM PARTICIPATING IN PT WITH FRANKLYN. NO SIGNS OF DISTRESS NOTED.
[2019-03-15 12:28] VITALS: BP 113/57
--- NOTE | 2019-03-15 17:31 | NUR ---
ASSISTED PT ON BEDPAN
[2019-03-15 18:33] VITALS: BP 138/72
--- NOTE | 2019-03-15 20:00 | NUR ---
PATIENT RECEIVED LAYING IN BED OFF LEFT SIDE. PATIENT VITAL SIGNS & ASSESSMENT DONE. NO C/O PAIN OR DISTRESS. BED LOW. ALARM ON. CALL LIGHT WITHIN REACH. WILL CONTINUE TO MONITOR.
--- NOTE | 2019-03-15 22:58 | NUR ---
LAB CALLED BLOOD READY TO BE HUNG. ORDER 2 UNITS OF PRBC'S TO BE GIVEN IN DIALYSIS TOMORROW. PASSED ON IN REPORT.
--- NOTE | 2019-03-15 23:28 | NUR ---
PATIENT EYES CLOSED. RESPIRATIONS 18 & EVEN. BED LOW. CALL LIGHT WITHIN REACH.WILL CONTINUE TO MONITOR.
[2019-03-16 00:52] VITALS: BP 99/52
--- NOTE | 2019-03-16 02:07 | NUR ---
I have reviewed this patient and I concur with the Shift Assessment completed by the Licensed Practical Nurse today this shift.
[2019-03-16 06:37] VITALS: BP 109/54
--- NOTE | 2019-03-16 08:20 | NUR ---
PT AM MEDS ADMINISTERED. PT DENIES NEEDS. WCTM.
--- NOTE | 2019-03-16 11:36 | NUR ---
5 SUTURES TO LEFT KNEE REMOVED. PT TOLERATED WELL. WCTM.
[2019-03-16 12:28] VITALS: BP 131/72
--- NOTE | 2019-03-16 12:50 | NUR ---
PT CONTINUES TO HAVE N/V. PT REQUESTED MORE COMPAZINE. NOTIFIED PT IT WAS NOT DUE FOR ANOTHER 2 HOURS.
--- NOTE | 2019-03-16 15:45 | NUR ---
CALLED DIALYSIS TO CONFIRM PT WAS GOING TO DIALYSIS TODAY. DIALYSIS NURSE STATED IT WOULD BE A LITTLE OVER AN HOUR BEFORE SHE CALLED FOR PT.
--- NOTE | 2019-03-16 17:55 | NUR ---
PT TAKEN TO DIALYSIS.
--- NOTE | 2019-03-16 18:16 | NUR ---
FIRST UNIT OF BLOOD TAKEN TO DIALYSIS.
--- NOTE | 2019-03-16 18:40 | NUR ---
SECOND UNIT OF BLOOD TAKEN TO DIALYSIS.
[2019-03-16 20:00] VITALS: BP 130/82
--- NOTE | 2019-03-16 21:30 | NUR ---
PT RETURNED TO UNIT FROM DIALYSIS. NO ISSUES AT THIS TIME. RIGHT ARM FISTULA WITH THRILL AND BRUITT PRESENT. BLISTERS NOTED TO SECOND TOE ON LEFT FOOT AND BLISTER TO BOTTOM OF FOOT. OINTMENT APPLIED PER PATIENT REQUEST. DENIES OTHER NEEDS AT THIS TIME. HAS CALL LIGHT IN HAND. CPOC
[2019-03-17] VITALS: BP 108/61
--- NOTE | 2019-03-17 03:28 | NUR ---
I have reviewed this patient and I concur with the Shift Assessment completed by the Licensed Practical Nurse today this shift.
[2019-03-17 06:22] VITALS: BP 106/53
--- NOTE | 2019-03-17 09:06 | NUR ---
PT AM MEDS ADMINISTERED. PT JOSE HYLTON. MINERVA.
[2019-03-17 12:46] VITALS: BP 112/50
[2019-03-17 17:04] VITALS: BP 106/49
--- NOTE | 2019-03-17 19:12 | NUR ---
PT RESTING QUIETLY. CALL LIGHT IN REACH. NO DISTRESS NOTED. EYES CLOSED. RESP EVEN AND UNLABORED. WCTM
--- NOTE | 2019-03-17 23:33 | NUR ---
PT SITTING UP IN BED. CALL LIGHT IN REACH. TURNED PT ON RIGHT SIDE. ELEVATED LEFT LEG MORE TO GET HEEL OFF THE BED. DENIES FURTHER NEEDS AT THIS TIME. RESP EVEN AND UNLABORED. LUNGS CLEAR. BOWEL ACTIVE X4. WCTM
[2019-03-18 00:43] VITALS: BP 110/43
--- NOTE | 2019-03-18 03:44 | NUR ---
I have reviewed this patient and I concur with the Shift Assessment completed by the Licensed Practical Nurse today this shift.
--- NOTE | 2019-03-18 05:28 | NUR ---
PT RESTING QUIETLY. CL IN REACH. NO DISTRESS NOTED. EYES CLOSED. WCTM
[2019-03-18 06:03] VITALS: BP 144/52
[2019-03-18 06:57] LABS: BASOPHILS 0.5 % (0-2); EOSINOPHILS 5.3 % (0-7); HEMATOCRIT 28.3 % (42.0-54.0); HEMOGLOBIN 9.1 g/dL (13.5-17.5); IMMATURE GRANULOCYTES 0.2 % (0-5); LYMPHOCYTES 21.1 % (15-50); MCH 28.1 pg (26.0-34.0); MCHC 32.2 g/dL (31.0-37.0); MCV 87.3 fL (80.0-100.0); MEAN PLATELET VOLUME 8.9 fL (7.4-10.4); MONOCYTES 6.1 % (2-11); NEUTROPHILS 66.8 % (40-80); PLATELET COUNT 273 10x3/uL (130-400); RBC 3.24 10x6/uL (4.20-6.10); RDW 15.9 % (11.5-14.5); WBC 6.4 10x3/uL (4.8-10.8)
[2019-03-18 07:30] LABS: ANION GAP 12.2 mmol/L (8-16); CALCIUM 11.8 mg/dL (8.5-10.1); CREATININE - SERUM 5.4 mg/dL (0.6-1.3); POTASSIUM - SERUM 4.2 mmol/L (3.5-5.1)
--- NOTE | 2019-03-18 07:31 | NUR ---
RESTING WO DISTRESS. RESP EVEN AND UNLABORED. CL IN REACH.
--- NOTE | 2019-03-18 09:18 | NUR ---
SHOWER THIS AM PER OT.
--- NOTE | 2019-03-18 09:47 | RHP ---
PATIENT: COLTEN DENG MEDICAL RECORD: [id number] ACCOUNT: [id number] LOCATION:[facility] [id number] : 48 ADMISSION DATE: 03/06/19 REHABILITATION HISTORY AND PHYSICAL EXAMINATION POST ADMISSION PHYSICIAN EXAMINATION DATE OF ADMISSION TO THE REHAB: 03/06/2019. ADMITTING DIAGNOSIS: Right eflwz-lqa-qsrp amputation. HISTORY OF PRESENT ILLNESS: The patient is a 69-year-old gentleman admitted to the rehab with a right AKA. He was recently admitted from [facility] on 12/23/2018 with a right BKA performed by Dr. Infante. He did well, but continued to have hemodialysis on Monday, Monday and Monday on 01/07/2019. He became confused, disoriented, was right stepped, developed blisters and necrotic tissue. He was transferred back to [facility] to the services of Dr. Infante who then performed a right caigx-xfb-vjpb amputation. During his acute hospital stay, he developed encephalopathy, septic shock and septic arthritis to his left knee and I&D of his left knee and is placed on antibiotics. He was transferred to the [facility] on 01/24/2019 for long-term antibiotic therapy. He completed his IV therapy there, was transferred back to [place] for therapy due to prolonged hospitalization and immobility. He participated in therapy, but continued to have swelling, intractable pain. Ortho was consulted on 02/28/2019. He was admitted to the acute care hospital for septic left knee. He was taken to the OR for arthroscopic I&D of the left knee and cultures taken. Left knee aspirate was bloody and opaque. He had white blood cells in it. Gram stain showed many white blood cells, but no organism was seen on day 1. His sed rate and his CRP were both elevated. X-rays showed a large joint effusion. Postop, his H&H dropped down and he received 1 unit of packed red blood cells. Nephrology was consulted to manage his hemodialysis. He began feeling better. He had negative cultures, but Gram-positive cocci, so he was placed on vancomycin. He has lived with his who was moderately independent with a cane for ADLs and mobility. Currently, he is mod-to-max assist for ADLs and transfers. He is weightbearing as tolerated on the left for transfers. He is alert and oriented times 3. He is very weak and deconditioned secondary to his prolonged hospitalization. These are all barriers to his discharge home. He has good family support and hopefully we will get him up and going here. COMORBIDITIES: Include peripheral vascular disease, peripheral arterial disease, hypercalcemia, coronary artery disease, deconditioning, obstructive sleep apnea, anemia of chronic disease, history of DVT, right below the knee which was revision to his AKA secondary to ischemic changes, anemia, prostate cancer, AFib, joint effusion, and left knee pain. PAST MEDICAL HISTORY: Significant for thyroid problems, history of coronary artery disease, hypertension, sleep apnea, arthritis, chronic back pain, chronic renal insufficiency. PAST SURGICAL HISTORY: Includes appendectomy, fistula, coronary artery bypass grafting, stent placement, port placement. ALLERGIES: PENICILLIN AND ISONIAZID. CURRENT MEDICATIONS: Include erythropoietin 12,000 units he takes this 3 times a week. He is on folic acid, vitamin B complex. He is on Colace 100 mg daily. HISTORY AND PHYSICAL [id number] COLTEN DENG He is on Sensipar 30 mg on Monday, and Monday, aspirin chewable 81 mg daily, Renagel 1600 mg t.i.d. with meals, Synthroid 100 mcg daily. He is on Protonix 40 mg daily, Requip 1 mg t.i.d., ferrous sulfate 325 mg b.i.d., Lipitor 80 mg q.h.s., amiodarone 200 mg b.i.d. He is on lactulose as needed for constipation, Compazine 10 mg q.6 hours p.r.n. nausea and vomiting, Percocet 10/325 as needed for pain, and Tylenol p.r.n. HABITS: No current alcohol or tobacco use. FAMILY HISTORY: Noncontributory. SOCIAL HISTORY: The patient hopes to return back home and get back to his prior level of functioning. REVIEW OF SYSTEMS: GENERAL: Does complain of weakness and fatigue. HEENT: Denies cold, cough, or congestion. CARDIOVASCULAR: Denies any chest pain. PHYSICAL EXAMINATION: VITAL SIGNS: Stable, afebrile. GENERAL: A well-developed black gentleman in no acute distress, alert upon exam. HEENT: Normocephalic and atraumatic. Mucosa moist. NECK: Supple. No lymphadenopathy. LUNGS: Clear in upper conklin. HEART: Irregular rate and rhythm. ABDOMEN: Soft, benign and nondistended. Positive bowel sounds times 4. EXTREMITIES: He is noted to have a large amount of swelling noted to his knee. He has above the knee amputation. The area looks pretty good. LABORATORY DATA: Admit labs showed a white count of 8.8, H&H of 8.6 and 26.6, and platelet count was noted to be 276. His sodium is 135, potassium 3.5, BUN and creatinine of 52 and 5.5, and blood sugar is noted to be 90. ASSESSMENT: This is a 69-year-old gentleman admitted to the rehab with a working diagnosis of right enppt-ixr-layi amputation, status post septic joint. The patient has potential to make improvement. We instituted the following multidisciplinary therapies including, but not limited to physical, occupational, respiratory, speech, orthotics, and prosthetics. Given his complex medical condition, risk of further medical complications, rehabilitative services cannot be provided at a low level of care such a nursing home facility. PLAN: 1. Admit to [facility] for an intensive inpatient therapy to include the following disciplines: A. Physical therapy to improve gait, all transfer skills and bed mobility to a modified independent level. B. Occupational therapy to improve activities of daily living to a modified independent level. C. Case management to assist with discharge planning and placement options. D. Nutrition to assist with nutritional needs. E. Rehabilitation nursing to assist in monitoring the patient's underlying medical conditions and to assist with any type of bowel or bladder management. HISTORY AND PHYSICAL [id number] COLTEN DENG 2. The patient's current medication and medical care will be continued. 3. The patient will be placed on standard fall precautions. 4. I will check a vitamin D level and also a TSH on him in the morning. 5. We will treat appropriately. TRANSINT:[id number] Voice Confirmation ID: [id number] DOCUMENT ID: [id number] DAISY notes whether there has been none or any medical/functional change since admission: - No change since preadmission screen. DAISY attests patient continues to be appropriate for IRF: - Continues to be appropriate. ELZBIETA HAQUE MD at 0947 CC: [id number] DICTATION DATE: 03/07/19 0858 COMPLIANCE AND CONTROL ANALYST: 03/07/19 0926 ADM IN [facility] [address] [id number]
[2019-03-18 11:30] VITALS: BP 113/56
--- NOTE | 2019-03-18 13:07 | NUR ---
NUTRITION F/U RENAL DIET, PREVIOUS GOOD PO INTAKE. PER CHART PT RECENTLY WITH SOME NAUSEA. WILL CONTINUE TO PROVIDE RENAL DIET, MONITOR PO INTAKE. RD FOLLOWING
--- NOTE | 2019-03-18 13:17 | NUR ---
REFERRAL HAS BEEN FAXED TO THE [facility] FOR POSSIBLE ADMISSION. WILL CONTINUE TO FOLLOW WITH PATIENT.
--- NOTE | 2019-03-18 13:47 | NUR ---
ASSISTED TO BED PER THERAPY. FIRST STEP MATTRESS. CL IN REACH.
--- NOTE | 2019-03-18 14:19 | NUR ---
PARTICIPATED IN THERAPY THIS AM. IN BED RESTING AT THIS TIME. R INFUSA PORT ACCESSED AT THIS TIME USING STERILE PROCEDURE WITH 1 1/2 NI NEEDLE.
[2019-03-18 17:06] VITALS: BP 90/69
--- NOTE | 2019-03-18 17:57 | NUR ---
NO CHANGE IN ASSESSMENT. CL IN REACH.
--- NOTE | 2019-03-18 19:50 | NUR ---
PT SITTING UP IN BED COMPLAINING OF BEING HOT AND SWEATING. TURNED AC LOWER. DENIES FURTHER NEEDS. WCTM. CL IN REACH.
--- NOTE | 2019-03-18 22:00 | NUR ---
PT RECIEVED NIGHT MEDS. ASSISTED ONTO BEDPAN. BM FORMED. DENIES FURTHER NEEDS. CL IN REACH. RESP EVEN AND UNLABORED. LUNGS CLEAR. BOWEL ACTIVE X4. A/O X4. BED IN LOW. SIDE RAILS X2. ADJUSTED PT UP IN BED AND TURNED ON LEFT SIDE. WCTM.
[2019-03-19 00:23] VITALS: BP 110/92
--- NOTE | 2019-03-19 01:55 | NUR ---
PT SPITTING UP CLEAR MUCUS. COMPLAINED OF NAUSEA. PRN MED GIVEN. WCTM
--- NOTE | 2019-03-19 03:36 | NUR ---
PT RESTING QUIETLY. CL IN REACH. NO DISTRESS NOTED. WCTM
--- NOTE | 2019-03-19 04:41 | NUR ---
PT IN BED LOWEST POSITION, EYES CLOSED AROUSES EASILY TO VOICE, RESPIRATIONS EVEN AND UNLABORED, NO NEEDS NOTED, FLUIDS AND CALL LIGHT WITHIN REACH I have reviewed this patient and I concur with the Shift Assessment completed by the Licensed Practical Nurse today this shift.
[2019-03-19 06:31] VITALS: BP 112/44
--- NOTE | 2019-03-19 07:26 | NUR ---
RESTING WO DISTRESS. RESP EVEN AND UNLABORED. CL IN REACH.
[2019-03-19 11:28] VITALS: BP 129/93
--- NOTE | 2019-03-19 11:28 | NUR ---
THERAPY THIS AM. WILL HAVE DIALYSIS TOMORROW AM THEN WILL BE DC'D TO [facility] AFTER DIALYSIS.
--- NOTE | 2019-03-19 14:01 | NUR ---
PATIENT HAS BEEN [facility]ED [facility] AND WILL DISCHARGE THERE 03/20/19 @ 4:00. PATIENT HAS BEEN NOTIFIED. WILL CONTINUE TO FOLLOW WITH PATIENT.
--- NOTE | 2019-03-19 16:37 | NUR ---
NO CHANGE IN ASSESSMENT. REPOSITIONED UP IN BED. ON FIRST STEP MATTRESS. CL IN REACH.
--- NOTE | 2019-03-19 16:38 | NUR ---
NO CHANGE IN ASSESSMENT. ENEMA TODAY WITH BROWN LIQUID RESULTS. ABD XRAY TAKEN.
[2019-03-19 18:18] VITALS: BP 109/55
--- NOTE | 2019-03-19 19:22 | NUR ---
PT RESTING QUIETLY. CL IN REACH. NO DISTRESS NOTED. BED IN LOW SIDE RAILS X2. RESP EVEN AND UNLABORED. WCTM
--- NOTE | 2019-03-20 00:10 | NUR ---
PT RESTING QUIETLY. CL IN REACH. NO DISTRESS NOTED. WCTM
[2019-03-20 00:14] VITALS: BP 106/32
--- NOTE | 2019-03-20 01:06 | NUR ---
PT IN BED LOWEST POSITION, EYES CLOSED AROUSES EASILY TO VOICE, RESPIRATIONS EVEN AND UNLABORED, NO NEEDS NOTED, FLUIDS AND CALL LIGHT WITHIN REACH
[2019-03-20 06:28] VITALS: BP 111/53
--- NOTE | 2019-03-20 09:27 | NUR ---
PATIENT DISCHARGING TO THE [facility] TODAY VIA FACILITY VAN. NO HOME HEALTH OR DME NEEDED AT THIS TIME. PATIENT WILL HAVE HD AT [facility] ON -W- @ 7AM. WILL SEE DR. FENG AT HD CLINIC. DR. DALE 03/27/19 @ 2:30.PATIENT CHOICE FORM AND IMFM FORMS SIGNED, COPY GIVEN TO PATIENT AND FILED IN CHART. DISCHARGE INSTRUCTIONS WITH [facility] DATA FAXED TO SNF, AND REVIEWED WITH PATIENT.
[2019-03-20 10:27] LABS: BASOPHILS 0.3 % (0-2); EOSINOPHILS 6.5 % (0-7); HEMATOCRIT 25.7 % (42.0-54.0); HEMOGLOBIN 8.4 g/dL (13.5-17.5); MCHC 32.7 g/dL (31.0-37.0); MCV 85.7 fL (80.0-100.0); MEAN PLATELET VOLUME 8.4 fL (7.4-10.4); MONOCYTES 5.1 % (2-11); NEUTROPHILS 75.1 % (40-80); PLATELET COUNT 245 10x3/uL (130-400); RDW 15.6 % (11.5-14.5); WBC 5.9 10x3/uL (4.8-10.8)
--- NOTE | 2019-03-20 10:29 | NUR ---
PT AM MEDS ADMINISTERED. REPORT CALLED TO ASH AT THE [facility]. PT CURRENTLY IN DIALYSIS. WCTM.
[2019-03-20 10:40] LABS: ANION GAP 12.3 mmol/L (8-16); CALCIUM 9.5 mg/dL (8.5-10.1); CARBON DIOXIDE 28.1 mmol/L (21.0-32.0); CREATININE - SERUM 5.7 mg/dL (0.6-1.3); PHOSPHOROUS 2.3 mg/dL (2.5-4.9); POTASSIUM - SERUM 3.4 mmol/L (3.5-5.1); URIC ACID 4.4 mg/dL (2.6-7.2); VANCOMYCIN - RANDOM 16.8 ug/mL (10.0-20.0)
--- NOTE | 2019-03-20 15:33 | NUR ---
INFUSAPORT DEACCESSED AT THIS TIME.
--- NOTE | 2019-03-20 15:52 | NUR ---
PT LEAVING WITH [facility] STAFF AT THIS TIME.
== END 2019-03-20 15:53 | DRG 559 ==
LOC: D.REHAB 18:36
PROVIDERS: Internal Medicine Nephrology; ADMIT Emergency Medicine; ATTEND Emergency Medicine
DX: Z47.81 Encounter for orthopedic aftercare following surgical amputation (principal); I50.43 Acute on chronic combined systolic (congestive) and diastolic (congestive) heart failure; N18.6 End stage renal disease; R65.21 Severe sepsis with septic shock; M00.062 Staphylococcal arthritis, left knee; I13.2 Hypertensive heart and chronic kidney disease with heart failure and with stage 5 chronic kidney disease, or end stage renal disease; N17.9 Acute kidney failure, unspecified; Z89.611 Acquired absence of right leg above knee; I73.9 Peripheral vascular disease, unspecified; I25.10 Atherosclerotic heart disease of native coronary artery without angina pectoris; E83.52 Hypercalcemia; G47.33 Obstructive sleep apnea (adult) (pediatric); D63.1 Anemia in chronic kidney disease; I48.91 Unspecified atrial fibrillation; M25.40 Effusion, unspecified joint; B95.7 Other staphylococcus as the cause of diseases classified elsewhere; C61 Malignant neoplasm of prostate; E03.9 Hypothyroidism, unspecified; I48.0 Paroxysmal atrial fibrillation; Z99.2 Dependence on renal dialysis

== ENCOUNTER 2019-04-03 12:03 | Inpatient (IN) | payer MEDICARE, BC ==
[~2019-04-03] VITALS: Ht 177.8 cm; Wt 91.7 kg
--- NOTE | ~2019-04-03 | OP ---
PATIENT NAME: COLTEN DENG MEDICAL RECORD: [id number] :48 LOCATION:D.[facility] D.2307 ADMISSION DATE:04/03/19 SURGEON: DELANEY CLEVELAND MD DATE OF OPERATION: 04/04/2019 REFERRING PHYSICIAN: Ferny Singh MD PREOPERATIVE NOTE: Mr. Deng is a very ill 69-year-old -[place] male in ICU. He has end-stage renal disease, is on hemodialysis with a right upper arm access. He is now admitted with left knee effusion and developing gangrene of the left foot. He is to have a CTA this evening and possibly after with intervention. The patient has a chronic venous access port, an Infusaport type device in the right infraclavicular area with a catheter passing into the right internal jugular vein. He has had prior left-sided dialysis catheters. He has had a previous right ufkuj-eyt-iqat amputation. I believe it will be safer for this gentleman to have the IV placed via the right common femoral vein this evening. DESCRIPTION OF PROCEDURE: With the patient in the ICU in supine position, he was prepped and draped in sterile manner with full barrier precautions. The [employer] ultrasound was sterilely draped and used to examine the right common femoral vein. It was of normal caliber and fully compressible and contained no sonographic abnormality. The right common femoral artery was noted to be heavily calcified. Skin and subcutaneous tissues were anesthetized with 1% lidocaine. A skin incision was made and through that, a needle was directed directly into the common femoral vein with continuous ultrasound guidance and images were preserved on USB drive. A guidewire was passed and following that, a dilator and lastly a 16-cm triple-lumen central venous line. That catheter was aspirated and free return of blood confirmed after a bit of stuttering and the catheter lumens were then flushed with saline, clamped and capped. The catheter was sutured in position with 2-0 Prolene. A sterile dressing was applied including a chlorhexidine Biopatch. The patient is to have a KUB done now to demonstrate the catheter position and may be used immediately so the patient can go on to have his CTA this evening. TRANSINT:[id number] Voice Confirmation ID: [id number] DOCUMENT ID: [id number] DELANEY CLEVELAND MD CC: FERNY SINGH MD [id number] DICTATION DATE: 04/04/191812 EMERGENCY DEPARTMENT COORDINATOR: 04/04/[address] [facility] [address] [place] [address]
--- NOTE | ~2019-04-03 | HEMODYNAMI ---
PATIENT:COLTEN DENG MEDICAL RECORD: [id number] : 48 LOCATION:D.ICU D.2307 ADMISSION DATE: 04/03/19 Generatedon:04/04/201911:32 Patient name: COLTEN DENG Patient #: [id number] SSN: [id number] : 1950 Date of study: 04/04/2019 Page: Of Hemodynamic Procedure Report Patient Data Patient Demographics Procedure consent was obtained First Name: COLTEN Gender: Male Last Name: SOWMYA : 1950 [facility] Initial: TORRI Age: 69 year(s) Patient #: [id number] Race: Black SSN: [id number] Additional ID: [id number] Contact details [address]: [address] [place] [address] circle State: [place] City: [place] Zip code: [address] Past Medical History Allergies Allergen Reaction Date Comments Reported Penicillins 08/16/2016 Other allergy 04/04/2019 PCN,INH,AND OMEPRAZOLE Admission Admission Data Admission Date: 04/03/2019 Admission Time: 12:03 Room #: D.2307 Procedure Procedure Types Cath Procedure Peripheral Cath Diagnostic Procedure Miscellaneous Aspiration/Injection (Joint) Procedure Description Procedure Date Procedure Date: 04/04/2019 Procedure Start Time: 11:23 Procedure Staff Name Function Ethan Gonzales MD Performing Physician Dominic Berg RT Monitor Cynthia Mason RN Nurse Procedure Data Cath Procedure Fluoroscopy Diagnostic fluoroscopy Total fluoroscopy Time: 0.1 time: 0.1 min min Diagnostic fluoroscopy Total fluoroscopy dose: 1 dose: 1 mGy mGy Hemodynamics Rest Pre Cath Intra NCS Post Cath Procedure Log Time Note 11:07:40 Cynthia Mason RN sent for patient. Start room use. 11:07:48 Patient received from ICU to IR Alert and oriented. Tansferred to table in Supine position. 11:07:55 Correct patient and procedure confirmed by team. 11:07:56 Signed procedure consent form obtained from patient. 11:08:02 - 11:14:19 Pre-procedure instructions explained to patient. 11:14:20 Pre-op teaching completed and patient verbalized understanding. 11:14:50 Patient allergic to Other allergyPCN,INH,AND OMEPRAZOLE 11:15:00 Is patient on blood thinner?No 11:15:47 Left Knee was prepped with betadine and draped in sterile fashion. 11:21:37 Physician arrived 11:22:34 --------ALL STOP TIME OUT------ 11:22:35 Final Timeout: patient, procedure, and site verified with staff and physician. All members of the team are in agreement. 11:22:37 Left KNEE site verified by team. 11:22:52 Sedation plan: Local Anesthetic Medication:Lidocaine 11:22:59 Procedure started. 11:22:59 Full Disclosure recording started 11:23:06 Local anesthetic to Left Knee with Lidocaine 1% by Ethan Gonzales MD.INITIAL ACCESS ONLY 11:23:12 SAFE-T PLUS MYELOGRAM TRAY opened to sterile field. 11:31:09 Procedure ended.(Physican Out) 11:31:16 Fluoroscopy time 00.10 minutes. 11:31:19 Fluoroscopy dose: 1 mGy 11:31:19 Flurop Dose total: 1 11:31:48 BANDAIDE APPLIED TO LT.KNEE SITE STABLE PT SENT BACK TO ICU Device Usage Item Name Manufacture Quantity Catalog Hospital Part Current Minimal Lot# / Number Charge Number Stock Stock Serial# Code SAFE-T [employer] 1 [id number] PLUS MYELOGRAM TRAY Signature Audit [place] Stage Time Signature Unsigned Intra-Procedure 04/04/2019 Dominic 11:32:19 AM Morena RT (R) (CV) Signatures Monitor : Dominic Signature : Morena RT Date : Time : [facility] [address] [place] [address]
--- NOTE | ~2019-04-03 | HEMODYNAMI ---
PATIENT:COLTEN DENG MEDICAL RECORD: [id number] : 48 LOCATION:[facility] D.2307 ADMISSION DATE: 04/03/19 Generatedon:04/06/201914:51 Patient name: COLTEN DENG Patient #: [id number] SSN: [id number] : 1950 Date of study: 04/06/2019 Page: Of Hemodynamic Procedure Report Patient Data Patient Demographics Procedure consent was obtained First Name: COLTEN Gender: Male Last Name: SOWMYA : 1950 [facility] Initial: TORRI Age: 69 year(s) Patient #: [id number] Race: Black SSN: [id number] Additional ID: [id number] Contact details [address]: [address] [place] [address] circle State: [place] City: [place] Zip code: [address] Past Medical History Allergies Allergen Reaction Date Comments Reported Penicillins 08/16/2016 Other allergy 04/04/2019 PCN,INH,AND OMEPRAZOLE Admission Admission Data Admission Date: 04/03/2019 Admission Time: 12:03 Room #: D.2307 Lab Results Lab Result Date: 04/06/2019 Lab Result Time: 0:00 Biochemistry Name Units Result Min Max BUN mg/dl 19 --(----)*- 7 18 Creatinine mg/dl 3.4 --(----)-* 0.6 1.3 eGFR ml/min 23 *-(----)-- 90 120 AM CBC Name Units Result Min Max Hematocrit % 34.3 *-(----)-- 42 54 Hemoglobin g/dl 11.3 *-(----)-- 13.5 17.5 Procedure Procedure Types Cath Procedure Diagnostic Procedure LHC LHC w/Coronaries w/Grafts Procedure Description Procedure Date Procedure Date: 04/06/2019 Procedure Start Time: 14:31 Procedure End Time: 14:51 Procedure Staff Name Function Lucian Ortiz MD Performing Physician Jermaine ALICIA Monitor Paulina Tabor RT Scrub Ryanne Vu RN Nurse Procedure Data Cath Procedure Fluoroscopy Diagnostic fluoroscopy Total fluoroscopy Time: 5.2 time: 5.2 min min Diagnostic fluoroscopy Total fluoroscopy dose: 737 dose: 737 mGy mGy Contrast Material Contrast Material Type Amount (ml) Isovue 370 91 Entry Location Entry Primary Successful Side Size Upsize Upsize Entry Closure Succes sful Closure Location (Fr) 1 (Fr) 2 (Fr) Remarks Device Remarks Femoral Left 6 Fr Exoseal artery Short Estimated blood loss: 10 ml Diagnostic catheters Device Type Used For End Catheter Placement MULTIPACK Pigtail 5 Fr Procedure catheter MULTIPACK JL 4.0 5Fr Procedure catheter MULTIPACK 3DRC 5Fr Procedure catheter DIAGNOSTIC AR2 MOD 5 Fr Procedure catheter ([id number]) Procedure Complications No complications Procedure Medications Medication Administration Route Dosage Versed I.V. 2 mg Fentanyl I.V. 50 mcg 0.9% NaCl I.V. Oxygen NC 5 l/min Lidocaine 2% added to field 20 Heparin Flush Bag added to field 2 bags (1000units/500ml NS) Levophed (8mg/250ml I.V. drip 15 mcg/min D5W) unlisted medication unlisted medication 1 mg/min Magnesium Sulfate I.V. drip 1 g (1Gm/100ml D5W) Fentanyl I.V. 50 mcg Hemodynamics Rest HGB: 11.3 (g/dl) Heart Rate: 70 (bpm) Pressure Samples Time Site Value (mmHg) Purpose Heart Use Rate(bpm) 14:35 AO 124/72(91) Snapshot 50 14:40 AO 131/69(91) Snapshot 66 Snapshots Pre Cath Intra NCS Post Cath Vital Signs Time Heart Resp SPO2 etCO2 NIBP (mmHg) Rhythm Pain Sedation Rate (ipm) (%) (mmHg) Status Level (bpm) 14:26:22 70 19 98 26.7 Measuring NSR 0 (11) 10(A) , No pain 14:32:43 66 22 100 28 Measuring NSR 0 (11) 10(A) , No pain 14:33:13 66 22 100 29.7 69/49(66) NSR 0 (11) 10(A) , No pain 14:37:11 66 20 99 26 70/54(65) NSR 0 (11) 9(A) , No pain 14:42:10 66 22 100 37 Measuring NSR 0 (11) 9(A) , No pain 14:43:09 65 21 100 28.9 125/94(120) NSR 0 (11) 9(A) , No pain 14:47:13 66 25 100 28.4 114/95(110) NSR 0 (11) 10(A) , No pain Medications Time Medication Route Dose Verified Delivered Reason Notes Effectiveness by by 14:30:26 Versed I.V. 2 mg Lucian Ryanne for Diana Vu sedation RN 14:30:33 Fentanyl I.V. 50 mcg Lucian Ryanne for Diana Vu sedation RN 14:30:55 0.9% NaCl I.V. kvo Lucian Ryanne used for Diana Vu fishing accessories maker 14:31:04 Oxygen NC 5 l/min Lucian Ryanne used for Diana Vu fishing accessories maker 14:31:10 Lidocaine 2% added 20ml Lucian Epstein for local to vial Diana Ortiz MD anesthetic field 14:31:14 Heparin Flush added 2 bags Lucian Epstein used for Bag to Diana Ortiz MD procedure (1000units/500ml field NS) 14:31:19 Levophed I.V. 15 Lucian Lucian For infusing (8mg/250ml D5W) drip mcg/min Diana Ortiz MD hypotension upon arrival 14:34:00 Dextrose 10% Lucian Lucian infusing Diana Ortiz MD upon arrival 14:34:06 Amiodarone IV 1 Lucian Ryanne Per infusing (360mg/200mL) drip mg/min Diana Vu physician upon RN arrival 14:35:29 Fentanyl I.V. 50 mcg Lucian Riverayla for Diana Vu sedation RN 14:38:42 Magnesium I.V. 1 g Lucian Ryanne Per infusing Sulfate drip Diana Vu physician upon (1Gm/100ml D5W) RN arrival Procedure Log Time Note 13:56:05 Ryanne Vu RN sent for patient. Start room use. 13:56:08 Signed procedure consent form obtained from patient. 13:56:16 Diagnostic Cath status Urgent 13:56:18 Time tracking: Call back (After hours or weekends) 13:56:21 Plan of Care:Hemodynamics will remain stable., Cardiac rhythm will remain stable., Comfort level will be maintained., Respiratory function will remain adequate., Patient/ family verbilizes understanding of procedure., Procedure tolerated without complication., Recovers from procedure without complications.. 13:58:53 Lab Result : BUN 19 mg/dl 13:58:53 Lab Result : Creatinine 3.4 mg/dl 13:58:53 Lab Result : eGFR AM 23 ml/min 13:58:53 Lab Result : Hemoglobin 11.3 g/dl 13:58:53 Lab Result : Hematocrit 34.3 % 14:18:05 Patient received from ICU to CCL 1 Alert and oriented. Tansferred to table in Supine position. 14:18:06 Warm blankets applied, and jessie hugger turned on for patient comfort. 14:18:06 Correct patient and procedure confirmed by team. 14:18:06 ECG and BP/O2 sat monitors applied to patient. 14:24:32 Vital chart was started 14:24:33 Baseline sample Acquired. 14:24:38 Rhythm: sinus rhythm 14:24:41 Full Disclosure recording started 14:24:46 H&P Date Dictated: 04/06/2019 Emergent; H&P N/A. 14:24:48 Pre-op teaching completed and patient verbalized understanding. 14:24:48 Pre-procedure instructions explained to patient. 14:24:50 Family in waiting room. 14:24:52 Patient NPO since Midnight. 14:24:54 Is the patient allergic to Iodine/contrast media? No. 14:24:59 Is patient on blood thinner?No 14:25:03 ACC The patient was administered the following blood thiners within the last 24 hours: None 14:25:07 Patient diabetic? Yes. 14:25:11 Previous problem with sedation/anesthesia? No ? 14:25:12 Snore? Yes 14:25:14 Sleep apnea? No 14:25:15 Deviated septum? No 14:25:15 Opens mouth fully? Yes 14:25:17 Sticks out tongue? Yes 14:25:23 Pt arrived from ICU w/ defibrillator pads in place and defibrillator present and on. Multiple drips infusing upon arrival (see med list) and on 5LNC w/ SpO2 100%. Pt awake and alert w/ mummbled speach. 14:25:23 Airway obstruction? No ? 14:25:25 Dentures? No ? 14:26:25 Pre procedure: right dorsailis pedis pulse Doppler 14:26:35 Patient pain scale 0/10 ?. 14:27:54 IV RIGHT FEMORAL. 14:27:57 Lab results completed and on chart. 14:28:00 Left groin area was prepped with chlora-prep and draped in sterile fashion 14:28:00 Alarms reviewed by R. N. 14:: Sharps counted by scrub and verified by R.N. 14:: --------ALL STOP TIME OUT------ 14:: Final Timeout: patient, procedure, and site verified with staff and physician. All members of the team are in agreement. 14::04 Left groin site verified by team. 14::08 Fire Safety Assessment: A--An alcohol-based skin anteseptic being used preoperatively., C--Open oxygen or nitrous oxide is being used., D--An ESU, laser, or fiber-optic light is being used. 14:28:17 Physical assessment completed. ASA score P 4 - A patient with severe systemic disease that is a constant threat to life as per Lucian Ortiz MD. 14:28:20 Sedation plan: IV Moderate Sedation Medication:Versed, Fentanyl 14:30:26 Versed 2 mg I.V. was administered by Ryanne Vu RN; for sedation; 14:30:33 Fentanyl 50 mcg I.V. was administered by Ryanne Vu RN; for sedation; 14:30:35 Use device set Femoral Dx 14:30:43 Use device set TAUTH PCI 14:30:46 ACIST Syringe (35597) opened to sterile field. 14:30:47 Bag Decanter (2002) opened to sterile field. 14:30:47 Medline Cath Pack ([id number]) opened to sterile field. 14:30:48 ACIST Hand Control (46872) opened to sterile field. 14:30:49 ACIST Manifold (58409) opened to sterile field. 14:30:51 Tegaderm 4 x 4 (1626W) opened to sterile field. 14:30:54 DIAGNOSTIC Multipack 5Fr catheter set (JK9431) opened to sterile field. 14:30:55 0.9% NaCl kvo I.V. was administered by Ryanne Vu RN; used for procedure; 14:30:56 EMERALD Guide Wire (288-433) opened to sterile field. 14:30:58 SHEATH 6FR [place] (DJQ131) opened to sterile field. 14:31:00 INFLATOR Merit BasRohinipak (OK2859) opened to sterile field. 14:31:02 CHOICE PT Extra Support 182cm wire ([id number]) opened to sterile field. 14:31:04 Oxygen 5 l/min NC was administered by Ryanne Vu RN; used for procedure; 14:31:06 Procedure started. 14:31:10 Lidocaine 2% 20ml vial added to field was administered by Lucian Ortiz MD; for local anesthetic; 14:31:11 Local anesthetic to left femerol artery with Lidocaine 2% by Lucian Ortiz MD.INITIAL ACCESS ONLY 14:31:14 Heparin Flush Bag (1000units/500ml NS) 2 bags added to field was administered by Lucian Ortiz MD; used for procedure; 14:31:19 Levophed (8mg/250ml D5W) 15 mcg/min I.V. drip was administered by Lucian Ortiz MD; For hypotension; infusing upon arrival 14:31:20 A 6 Fr Short sheath was inserted into the Left Femoral artery 14:31:27 A MULTIPACK Pigtail 5 Fr catheter was advanced over the wire and used for Procedure. 14:32:14 LV angiography performed. 14:32:16 LV gram done using ENGLISH 14:32:23 EF : 20 % 14:32:27 Injector settings: Ml/sec: 10, Volume: 20, 14:32:30 Catheter removed. 14:32:34 A MULTIPACK JL 4.0 5Fr catheter was advanced over the wire and used for Procedure. 14:33:10 LCA angiography performed. 14:33:12 Catheter removed. 14:33:21 A MULTIPACK 3DRC 5Fr catheter was advanced over the wire and used for Procedure. 14:34:00 Dextrose 10% was administered by Lucian Ortiz MD; ; infusing upon arrival 14:34:03 ACKERMAN to LAD angiography performed. 14:34:06 Amiodarone (360mg/200mL) 1 mg/min IV drip was administered by Ryanne Horace RN; Per physician; infusing upon arrival 14:34:27 Catheter removed. 14:34:53 A DIAGNOSTIC AR2 MOD 5 Fr catheter ([id number]) was advanced over the wire and used for Procedure. 14:35:26 SVG to OM angiography performed. 14:35:29 Fentanyl 50 mcg I.V. was administered by Ryanne Vu RN; for sedation; 14:35:50 SVG TO OM2 ANGIOGRAPHY PERFORMED. 14:36:17 SVG to RCA occluded. 14:36:23 Catheter removed. 14:36:25 GUIDE 6FR AR 2.0 catheter ([id number]) opened to sterile field. 14:38:00 6 Fr AR 2 guide catheter was inserted over the wire 14:38:16 RCA closed. 14:38:42 Magnesium Sulfate (1Gm/100ml D5W) 1 g I.V. drip was administered by Ryanne Vu RN; Per physician; infusing upon arrival 14:38:50 Pre PCI Site: Vein Graft dRCA has 100% stenosis. 14:39:01 CPTXS wire advanced. 14:40:30 Wire removed. unable to cross lesion. 14:40:33 CHOICE PT Extra Support J 300cm guide wire ([id number]) opened to sterile field. 14:40:46 CPTXS 300 wire advanced. 14:42:14 Wire removed. unable to cross lesion. 14:43:00 SHINOBI 300cm 0.014 guide wire ([id number]) opened to sterile field. 14:43:03 ShinobI wire advanced. 14:43:14 The EMERGE OTW 3.0 x 20 balloon ([id number]) was advanced and then removed because of failure to cross lesion 14:43:23 Wire removed. unable to cross lesion. 14:43:54 Guide catheter removed. 14:44:20 EXOSEAL 6Fr (EX600) opened to sterile field. 14:44:37 Sheath removed intact; hemostasis achieved with Exoseal to the Left Femoral artery. 14:44:39 Procedure ended.(Physican Out) 14:44:55 Fluoroscopy time 05.20 minutes. 14:44:58 Fluoroscopy dose: 737 mGy 14:44:58 Flurop Dose total: 737 14:45:03 Contrast amount:Isovue 370 91ml. 14:45:05 Sharps counted by scrub and verified by R.N. 14:45:08 Insertion/operative site no bleeding no hematoma. 14:45:11 Post-op/insertion site Left Femoral artery dressed using a 4 x 4 and Tegaderm. 14:45:12 Post Procedure Pulses reassessed and unchanged 14:45:20 Post-procedure physical assessment completed. ASA score P 4 - A patient with severe systemic disease that is a constant threat to life as per Lucian Ortiz MD. 14:45:24 Post procedure rhythm: unchanged. 14:45:27 Estimated blood loss: 10 ml 14:45:29 Post procedure instruction explained to patient.Patient verbalizes understanding. 14:45:29 Patient needs reinforcement of post procedure teaching. 14:46:50 Procedure and supply charges have been captured, reviewed, submitted and are correct. 14:46:52 Procedure Complication : No complications 14:47:22 Vital chart was stopped 14:47:24 See physician's report for complete and final results. 14:48:39 Report given to ICU. 14:48:45 Patient transfered to ICU with Bed. 14:51:19 Procedure ended. 14:51:19 Full Disclosure recording stopped 14:51:27 End room use (Document Last) Intervention Summary Intervention Notes Time ActionType Lesion and Equipment Action# Pressure Duration Attributes Used 14:43:14 Discard EMERGE OTW Balloon 3.0 x 20 balloon ([id number]) Device Usage Item Name Manufacture Quantity Catalog Number Hospital Part Current Mini [facility] Lot# / Charge Number Stock Stock Serial# Code ACIST Acist 1 21117 365785 279078 333689 20 Syringe Medical (39628) Systems Inc Bag Decanter Microtek 1 2001S 809606 15786 625919 5 (2001S) Medical Inc. Medline Cath Medline 1 [id number] 546228 01891 765332 5 Pack ([id number]) ACIST Hand Acist 1 24223 241910 816083 020215 5 Control Medical (94406) Systems Inc ACIST Acist 1 21181 498781 626610 677745 5 Manifold Medical (22634) Systems Inc Tegaderm 4 x 3M 1 1626W 046146 605124 219971 5 4 (1626W) DIAGNOSTIC Cardinal 1 FD3578 400921 99762 875301 30 MultipAcacia Communications 5Fr catheter set (ND4278) EMERALD Cardinal 1 502-455 029947 512451 038798 5 Guide Wire Health (502-557) SHEATH 6FR Terumo 1 VJL936 910023 683689 938250 40 [place] (XMB854) INFLATOR Merit 1 RJ7973 533075 443545 278823 15 [facility] Medical BasixCompak (ZE8686) CHOICE PT Reinholds 1 [id number] 185189 449229 780567 5 Extra Scientific Support 182cm wire (4763966R0) MULTIPACK Cardinal 1 678611 5 Pigtail 5 Fr Health catheter MULTIPACK JL Cardinal 1 667349 5 4.0 5Fr Health catheter MULTIPACK Cardinal 1 499152 5 3DRC 5Fr Health catheter DIAGNOSTIC Cardinal 1 127698Q 975314 983088 332996 20 AR2 MOD 5 Fr Health catheter (229588E) GUIDE 6FR AR Medtronic 1 HE7CB32 809950 48891 712413 1 2.0 catheter (SR8NT30) CHOICE PT Reinholds 1 [id number] 772145 900728 548314 5 Extra Scientific Support J 300cm guide wire (0141634J7) EMERGE OTW Reinholds 1 [id number] 112020 202030 942312 5 [id number] 3.0 x 20 Scientific balloon ([id number]) SHINOBI Cardinal 1 [id number] 477052 341437 108988 1 300cm 0.014 Health guide wire (260892J) EXOSEAL 6Fr Cardinal 1 EX600 492786 768799 686976 10 (EX600) Health Signature Audit [place] Stage Time Signature Unsigned Intra-Procedure 04/06/2019 Jermaine Doll 2:51:46 PM RT(R) Signatures Performing Physician : Signature : Lucian Ortiz MD Date : Time : Monitor : Jermaine Doll RT Signature : Date : Time : Nurse : Ryanne Vu RN Signature : Date : Time : [id number] [place] [address]
--- NOTE | 2019-04-03 12:50 | NUR ---
DIRECT ADMIT, SITTING UP IN W/C HE IS ALERT BUT UNABLE TO HELP TRANSFER. HE HAS SWOLLEN LEFT KNEE THAT IS HOT TO TOUCH AND SLIGHTLY RED WITH SOME SWELLING TO IT. RIGHT LEG IS AMPUTATED. RESP EVEN WITHOUT LABOR. HAS SHUNT IN RIGHT ARM USED FOR DIALYSIS. ORIENT TO ROOM INCLUDING USE OF CL.
--- NOTE | 2019-04-03 13:30 | NUR ---
NOTIFIED DR FENG OF HIS ADMISSION AFTER SPEAKING WITH DR PAN. NEW ORDERS GIVEN FOR LAB AND DIET. CONSULTS FOR FOOT DOCTOR AND DR DALE.
[2019-04-03 14:51] LABS: BASOPHILS 0.2 % (0-2); EOSINOPHILS 3.9 % (0-7); HEMATOCRIT 24.6 % (42.0-54.0); IMMATURE GRANULOCYTES 0.1 % (0-5); LYMPHOCYTES 10.4 % (15-50); MCH 27.2 pg (26.0-34.0); MCHC 30.5 g/dL (31.0-37.0); MCV 89.1 fL (80.0-100.0); MEAN PLATELET VOLUME 8.6 fL (7.4-10.4); MONOCYTES 5.3 % (2-11); NEUTROPHILS 80.1 % (40-80); PLATELET COUNT 276 10x3/uL (130-400); RBC 2.76 10x6/uL (4.20-6.10); RDW 16.5 % (11.5-14.5); WBC 8.3 10x3/uL (4.8-10.8)
[2019-04-03 14:57] LABS: HEMOGLOBIN 7.5 g/dL (13.5-17.5)
[2019-04-03 15:08] LABS: ANION GAP 11.4 mmol/L (8-16); BILIRUBIN - TOTAL 0.89 mg/dL (0.2-1.3); CALCIUM 8.9 mg/dL (8.5-10.1); CARBON DIOXIDE 29.6 mmol/L (21.0-32.0); CREATININE - SERUM 2.6 mg/dL (0.6-1.3); PROTEIN - SERUM 6.9 g/dL (6.4-8.2)
--- NOTE | 2019-04-03 15:35 | NUR ---
CLEVELAND BRAVO RETURNED MY PAGE CONCERNING HIS PAIN AND TO LOOK AT HIS LAB. SHE WILL PUT IN PAIN MED ORDERS AND TOLD ME TO GIVE HIM TWO CUPS OF OJ DUE TO POTASSIUM AND GLUCOSE IS LOW. HE DID CONSUME THEM WITHOUT DIFF
--- NOTE | 2019-04-03 19:00 | NUR ---
PATIENT LAYING IN BED. PATIENT HAS NO COMPLAINTS AT THIS TIME. NO DISTRESS NOTED.
[2019-04-03 19:46] VITALS: BP 131/85; BMI 28.7
[2019-04-03 20:00] VITALS: BP 109/56; BP 140/68
[2019-04-03 20:47] LABS: ERYTHROCYTE SEDIMENTATION RATE 125 mm/hr (0-20)
[2019-04-04] VITALS (17 sets, daily range): BP systolic 83–123; BP diastolic 41–96; Ht 177.8 cm; Wt 91.7 kg
--- NOTE | 2019-04-04 02:00 | NUR ---
PATIENT LAYING IN BED. EYES CLOSED, CHEST RISING AND FALLING. NO DISTRESS NOTED.
[2019-04-04 04:45] LABS: ALBUMIN 1.7 g/dL (3.4-5.0); ANION GAP 10.2 mmol/L (8-16); BILIRUBIN - TOTAL 0.85 mg/dL (0.2-1.3); CALCIUM 9.1 mg/dL (8.5-10.1); CARBON DIOXIDE 30.7 mmol/L (21.0-32.0); CREATININE - SERUM 3.2 mg/dL (0.6-1.3); PHOSPHOROUS 2.6 mg/dL (2.5-4.9); PROTEIN - SERUM 6.6 g/dL (6.4-8.2)
[2019-04-04 04:55] LABS: POTASSIUM - SERUM 2.9 mmol/L (3.5-5.1)
[2019-04-04 05:15] LABS: BASOPHILS 0.1 % (0-2); HEMATOCRIT 21.1 % (42.0-54.0); IMMATURE GRANULOCYTES 0.4 % (0-5); LYMPHOCYTES 15.2 % (15-50); MCH 26.7 pg (26.0-34.0); MCHC 30.3 g/dL (31.0-37.0); MCV 87.9 fL (80.0-100.0); MEAN PLATELET VOLUME 8.6 fL (7.4-10.4); MONOCYTES 5.8 % (2-11); NEUTROPHILS 75.5 % (40-80); PLATELET COUNT 274 10x3/uL (130-400); RDW 16.2 % (11.5-14.5); WBC 8.2 10x3/uL (4.8-10.8)
--- NOTE | 2019-04-04 05:15 | NUR ---
RELEASE OF INFORMATION SPECIALIST DOCTOR PAGED FOR PATIENT'S BLOOD SUGAR LOW AND POTASSIUM LOW. DR. FENG CALLED BACK AND GAVE ORDERS FOR D10 TO RUN AT 20ML/HR.
[2019-04-04 05:19] LABS: HEMOGLOBIN 6.4 g/dL (13.5-17.5)
--- NOTE | 2019-04-04 05:25 | NUR ---
LAB CALLED WITH CRITICAL HGB. DR. FENG PAGEBrianda.
--- NOTE | 2019-04-04 05:32 | NUR ---
[place] HURTADO WITH PING RETURNED PHONE CALL ORDERED TYPE AND CROSS THEN TO TRANSFUSE 2 UNITS OF PRBC.
[2019-04-04 07:05] LABS: INR 1.46 (0.85-1.17); PROTIME 17.1 SECONDS (11.6-15.0)
--- NOTE | 2019-04-04 07:05 | NUR ---
CALLED TO THE BEDSIDE BY DR FENG, IVF NEEDING TO BE STARTED ORDERED. PORT NEEDLE POSITIONAL, K+ STARTED, BLOOD SUGAR CHECKED AND 1 AMP D50 PUSHED AT THIS TIME PER DR FENG. THE DOCTOR STATED HE IS GOING TO NEED TO GO TO THE UNIT BECAUSE HE NEEDS A LOT OF CARE TODAY, ROOM 2307 ASSIGNED
--- NOTE | 2019-04-04 08:11 | NUR ---
PT ARRIVED TO ROOM VIA BED FROM FLOOR. CONVERSANT, FOLLOWS COMMANDS. CONFUSED TO TIME, BUT KNOW HE IS AT [facility]. PLACED ON BEDSIDE MONITORING. PLACED ON NC AT 2L FOR DECREASED SAT. CURRENTLY SLEEPING. WAKES WHEN SPOKEN TO.
--- NOTE | 2019-04-04 10:12 | NUR ---
YOLANDA ASKS IF SHE CANNOT BE REACHED TO CALL DAUGHTER TERENCE DA SILVADWELL [phone]
--- NOTE | 2019-04-04 10:15 | NUR ---
SPOKE WITH YOLANDA. CONSENT GRANTED FOR BLOOD ADMINISTRATION AND CENTRAL LINE PLACEMENT.
--- NOTE | 2019-04-04 10:38 | NUR ---
DR ORDOÑEZ CAME BY, REVIEWED PT CHART. SAW WAS [place] PATIENT AND INSTRUCTED TO CONTACT MEGHA TO FIND OUT ABOUT CENTRAL LINE PLACEMENT. CALLED MEGHA'S OFFICE AND SPOKE WITH DIVYA. HE IS SCRUBBED IN TO A PROCEDURE AT THIS TIME AND WILL GIVE HIM THE MESSAGE.
--- NOTE | 2019-04-04 10:56 | NUR ---
I.R. STAFF HERE TO GET PATIENT FOR KNEE ASPIRATION. YOLANDA AGAIN REACHED TO GET CONSENT FOR PROCEDURE.
--- NOTE | 2019-04-04 11:05 | NUR ---
PT OFF UNIT TO IR
--- NOTE | 2019-04-04 11:55 | NUR ---
PT RETURNED TO ROOM FROM I.R.
--- NOTE | 2019-04-04 12:25 | NUR ---
DR BROWN BY TO CHECK ON PATIENT
--- NOTE | 2019-04-04 16:09 | NUR ---
2ND UNIT PRBC COMPLETE. LAB DRAWN POST INFUSION. PT RESTING QUIETLY.
[2019-04-04 17:00] LABS: TOTAL IRON BIND CAPACITY 100 ug/dl (260-445)
[2019-04-04 17:19] LABS: % SATURATION 20 % (15-55); IRON 20 ug/dl (35-150); UNSAT IRON BIND CAPACITY 80 ug/dl (150-375)
[2019-04-04 17:35] LABS: MAGNESIUM - SERUM 1.8 mg/dL (1.8-2.4); POTASSIUM - SERUM 3.5 mmol/L (3.5-5.1)
--- NOTE | 2019-04-04 17:48 | MORECARE ---
CASE MANAGEMENT DISCHARGE SUMMARY PATIENT: COLTEN DENG UNIT: [id number] ADM DATE: 04/03/19 AGE: 69 : [birth year] SEX: M ROOM/BED: D.2307 AUTHOR: ALEXANDRA LONGORIA PHYSICIAN: REFERRING PHYSICIAN: DAJA FENG MD DATE OF SERVICE: 04/04/19 Discharge Plan Patient Name: COLTEN DENG [facility] [facility] 1950 Planned Disposition: Residential Facility Anticipated Discharge Date: Discharge Date: Expected LOS: Initial Reviewer: [email or web address] Initial Review Date: 04/04/2019 Generated: 04/04/19 6:48 pm Patient Name: COLTEN DENG Page 39355 at 1746 All edits/amendments must be made on the electronic document DICTATION DATE: 04/04/191747 REAL ESTATE PROFESSIONAL: GENNY 04/04/191747 RPT#: [id number] [place] DATE: STATUS: ADM IN [facility] [address] [place] [address] END OF REPORT
--- NOTE | 2019-04-04 18:43 | MORECARE ---
CASE MANAGEMENT DISCHARGE SUMMARY PATIENT: COLTEN DENG UNIT: [id number] ADM DATE: 04/03/19 AGE: 69 : 49 SEX: M ROOM/BED: D.2307 AUTHOR: ALEXANDRA LONGORIA PHYSICIAN: REFERRING PHYSICIAN: DAJA SINGH MD DATE OF SERVICE: 04/04/19 Discharge Plan Patient Name: COLTEN DENG Facility: [facility]:[place] : 1950 Planned Disposition: Long Term Facility Anticipated Discharge Date: Discharge Date: Expected LOS: Initial Reviewer: [email or web address] Initial Review Date: 04/04/2019 Generated: 04/04/19 7:42 pm DCP- Discharge Planning Updated by [email or web address]: Tesha Little on 04/04/19 5:[address] Patient Name: COLTEN DENG Admission Status: Elective Accout number: [id number] Admission Date: 04-03-2019 : 1950 Admission Diagnosis: Attending: Daja Singh Current LOS: 1 Anticipated DC Date: Planned Disposition: Long Term Facility Primary Insurance: MEDICARE A & B Discharge Planning Comments: CM spoke with patient's Lisa via phone after explaining CM role and obtaining verbal consent. Patient is very drowsy and unable to speak with CM. Patient has been at [facility] nursing [facility]hab(SNF- Medicare bed) since his last hospital stay and plans to return there upon discharge. Lisa denies any discharge needs at this time. Patient's lives in [place] and she stated that eventually she plans on getting the patient moved there once stable. CM will continue to follow and assist as needed with discharge planning / needs. Director Blood Bank: Tesha Little DCPIA - Discharge Planning Initial Assessment Updated by [email or web address]: Tesha Little on 04/04/19 5:48 pm * Is the patient Alert and Oriented? Yes * PCP Erendira * Pharmacy [facility] * Preadmission Environment Long Term Facility * Facility Name [facility] * ADLs Partial Dependent * Partial ADLs (Assistance needed) Ambulation Bathing Dressing Eating Medication Management Toileting Transfers * Other Equipment wheelchair, cane, walker * List name and contact numbers for known caregivers / representatives who currently or will assist patient after discharge: Lisa Deng - - [phone] * Verbal permission to speak to the caregivers and representatives has been obtained from the patient. Yes * Community resources currently utilized None * Please name any agencies selected above. HD MWF * Additional services required to return to the preadmission environment? No * Can the patient safely return to the preadmission environment? Yes * Has this patient been hospitalized within the prior 30 days at any hospital? Yes Last DP export: 04/04/19 4:48 p Patient Name: COLTEN DENG Page 02142 at 1843 All edits/amendments must be made on the electronic document DICTATION DATE: 04/04/191841 HAND THERMAL CUTTER: GENNY 04/04/191841 RPT#: [id number] DC DATE: STATUS: ADM IN [facility] [address] [place] [address] END OF REPORT
--- NOTE | 2019-04-04 19:00 | NUR ---
REPORT REC'D, ASSUMED PT CARE. ASSESSMENT COMPLETED PER FLOWSHEETS. PT A/O X2, SR ON CM WITH HR AT 74. LUNG SOUNDS DIMINISHED TO LLB, UNLABORED ON 2L VIA NC. LEFT FOOT PP WITH DOPPLER. CALL LIGHT IN REACH. CPOC.
--- NOTE | 2019-04-04 20:29 | NUR ---
CT TECHS HERE, PT TO CT.
--- NOTE | 2019-04-04 21:00 | NUR ---
PT BACK FROM CT. CM ATTACHED. PT ANGELA WELL.
--- NOTE | 2019-04-04 21:00 | NUR ---
PT INCONTINENT OF STOOL. SKIN AND PERICARE PROVIDED. REPOSITIONED FOR COMFORT. CPOC.
--- NOTE | 2019-04-04 23:00 | NUR ---
REASSESSMENT COMPLETED. SEE FLOWSHEETS FOR ALL FINDINGS. NO ACUTE CHANGES NOTED. VSS. CPOC.
[2019-04-05] VITALS (52 sets, daily range): BP systolic 44–125; BP diastolic 23–111
--- NOTE | 2019-04-05 | NUR ---
ASSISTED WITH BEDPAN. LARGE FORMED STOOL NOTED. PERICARE DONE. SKIN CARE DONE. REPOSITIONED FOR COMFORT. PILLOWS IN USE FOR SUPPORT. CALL LIGHT IN REACH. CPOC.
--- NOTE | 2019-04-05 01:00 | NUR ---
REPOSITIONED FOR COMFORT. PILLOWS IN USE FOR SUPPORT. HOB, CALL LIGHT IN REACH. CPOC.
--- NOTE | 2019-04-05 03:00 | NUR ---
REASSESSMENT COMPLETED PER FLOWSHEETS.NO ACUTE CHANGES IN PT'S STATUS NOTED. VSS. NO NEEDS VOICES AT THIS TIME. CPOC.
[2019-04-05 05:09] LABS: BASOPHILS 0.2 % (0-2); EOSINOPHILS 3.7 % (0-7); HEMATOCRIT 24.7 % (42.0-54.0); IMMATURE GRANULOCYTES 0.2 % (0-5); MCHC 31.6 g/dL (31.0-37.0); MEAN PLATELET VOLUME 8.5 fL (7.4-10.4); MONOCYTES 4.4 % (2-11); NEUTROPHILS 81.5 % (40-80); PLATELET COUNT 243 10x3/uL (130-400); RDW 17.9 % (11.5-14.5)
[2019-04-05 05:11] LABS: HEMOGLOBIN 7.8 g/dL (13.5-17.5); MCV 85.5 fL (80.0-100.0); RBC 2.89 10x6/uL (4.20-6.10)
[2019-04-05 05:25] LABS: ALBUMIN 1.7 g/dL (3.4-5.0); ANION GAP 10.1 mmol/L (8-16); BILIRUBIN - TOTAL 1.17 mg/dL (0.2-1.3); CALCIUM 9.7 mg/dL (8.5-10.1); POTASSIUM - SERUM 3.1 mmol/L (3.5-5.1); PROTEIN - SERUM 6.6 g/dL (6.4-8.2); VANCOMYCIN - RANDOM 21.8 ug/mL (10.0-20.0)
[2019-04-05 05:27] LABS: CREATININE - SERUM 4.2 mg/dL (0.6-1.3)
--- NOTE | 2019-04-05 09:33 | NUR ---
Nutrition follow-up: Diet: Renal PO intake poor at this time. Labs reviewed Wt: 202# May need to consider nutrition support if po intake remains poor. RDN following.
--- NOTE | 2019-04-05 11:45 | NUR ---
CONFIRMED PT NOT GOING TO IR TODAY. NO LONGER NEEDS TO BE NPO. WILL ALLOW PT TO EAT
--- NOTE | 2019-04-05 15:15 | NUR ---
DIALYSIS AT BEDSIDE FOR TREATMENT.
--- NOTE | 2019-04-05 16:07 | NUR ---
Pt has a healing stage 2 pressure injury on right gluteal fold measuring 2cm x 1cm. Coccyx has excoriation and buttocks and perineal area are red from incontinence of stool. The left plantar has a 3cm x 3cm x 0.2cm dry ulcer and the left #2 toe appears necrotic and black. Recommendations: -Calmoseptine cream to buttocks/faith area to protect from moisture/stool (use on gluteal fold too) -Snover ulcer on left plantar and #2 left toe with betadine daily. -Turn/reposition q 2 hours -Float heels Wound care continues to monitor.
--- NOTE | 2019-04-05 18:31 | NUR ---
PT REMAINS ON DIALYSIS. NO DISTRESS. 2 PRBC GIVEN.
--- NOTE | 2019-04-05 19:40 | NUR ---
RECEIVED PATIENT CARE, BP SYSTOLIC LOW AT THIS TIME INCREASED LEVOPHED DRIP SEE IV FLOWSHEET. PATIENT C/O PAIN IN LEG REPOSITIONED FOR COMFORT. PATIENT 97% ON 2L NC
[2019-04-06] VITALS (67 sets, daily range): BP systolic 52–146; BP diastolic 20–129
--- NOTE | 2019-04-06 01:19 | NUR ---
PATIENT ALARMING - MONITOR READING VFIB - CODE BLUE BUTTON ACTIVATED AND CRASH CART AT BEDSIDE, CHEST COMPRESSIONS AND BAG OXYGENATION STARTED. CRASH PADS APPLIED TO CHEST AND CART CHARGED TO 200 - MD AT BEDSIDE, PULSE AND RHYTHYM RETURNED - PATIENT ATTEMPTING SPONTANEOUS BREATHING, COPIOUS SECRETIONS AND SUCTIONING. DR. HARRELL GAVE VERBAL ORDERS AT THIS TIME FOR ABG'S CBC, CMP, AND CARDIAC ENZYMES. PATIENT ALERT, ASKING FOR SPIT CUP. LEVOPHED INCREASED TO 10MCG 0151 BP 89/72 - MAP 75 - DR. HARRELL ORDERED MAP ABOVE 65
[2019-04-06 01:40] LABS: BASOPHILS 0.2 % (0-2); EOSINOPHILS 3.7 % (0-7); IMMATURE GRANULOCYTES 0.8 % (0-5); LYMPHOCYTES 21.5 % (15-50); MCH 27.4 pg (26.0-34.0); MCHC 32.6 g/dL (31.0-37.0); MCV 84.2 fL (80.0-100.0); MEAN PLATELET VOLUME 8.6 fL (7.4-10.4); MONOCYTES 4.9 % (2-11); NEUTROPHILS 68.9 % (40-80); RDW 17.3 % (11.5-14.5)
[2019-04-06 01:43] LABS: HEMATOCRIT 34.1 % (42.0-54.0); HEMOGLOBIN 11.1 g/dL (13.5-17.5); PLATELET COUNT 312 10x3/uL (130-400); RBC 4.05 10x6/uL (4.20-6.10)
[2019-04-06 01:58] LABS: ALBUMIN 1.8 g/dL (3.4-5.0); ALKALINE PHOSPHATASE 237 U/L (46-116); ALT (SGPT) 13 U/L (10-68); BILIRUBIN - TOTAL 1.65 mg/dL (0.2-1.3); CALC OSMOLALITY 275 mosm/kg (275-300); CALCIUM 9.6 mg/dL (8.5-10.1); CARBON DIOXIDE 28.5 mmol/L (21.0-32.0); CHLORIDE - SERUM 100 mmol/L (98-107); CREATININE - SERUM 3.3 mg/dL (0.6-1.3); GLUCOSE 131 mg/dL (74-106); PROTEIN - SERUM 7.4 g/dL (6.4-8.2); SODIUM 136 mmol/L (136-145); UREA NITROGEN 17 mg/dL (7-18); eGFR NON AFRICAN AMERICAN 20 mL/min (90-120)
[2019-04-06 02:15] LABS: CKMB 1.3 U/L (0.0-3.6); CREATINE KINASE 204 UL (21-232)
--- NOTE | 2019-04-06 02:18 | NUR ---
CONTACTED DR. PAN REGARDING PATIENT CONDITION NEW ORDERS RECEIVED
--- NOTE | 2019-04-06 02:21 | NUR ---
ATTEMPTED CONTAT WITH DAUGHTER APRIL @ [phone] - PATIENT FAMILY IS ON HER WAY UP HER NOW
--- NOTE | 2019-04-06 03:30 | NUR ---
FAMILY AT BEDSIDE, REASSESSMENT COMPLETED SEE FLOWSHEET
[2019-04-06 07:07] LABS: BASOPHILS 0.2 % (0-2); EOSINOPHILS 3.1 % (0-7); HEMATOCRIT 34.3 % (42.0-54.0); HEMOGLOBIN 11.3 g/dL (13.5-17.5); IMMATURE GRANULOCYTES 0.4 % (0-5); LYMPHOCYTES 10.6 % (15-50); MCH 27.9 pg (26.0-34.0); MCHC 32.9 g/dL (31.0-37.0); MCV 84.7 fL (80.0-100.0); MEAN PLATELET VOLUME 8.8 fL (7.4-10.4); MONOCYTES 5.3 % (2-11); NEUTROPHILS 80.4 % (40-80); PLATELET COUNT 304 10x3/uL (130-400); RBC 4.05 10x6/uL (4.20-6.10); RDW 17.4 % (11.5-14.5); WBC 11.7 10x3/uL (4.8-10.8)
--- NOTE | 2019-04-06 07:15 | NUR ---
REC'D SUPINE, AWAKE/ALERT VSS ON LEVOPHED.
--- NOTE | 2019-04-06 07:15 | NUR ---
REC'D LEFT SIDE, ON BIPAP. ASSESSED- SEE FLOWSHEET.
[2019-04-06 07:16] LABS: ALBUMIN 1.8 g/dL (3.4-5.0); ANION GAP 11.8 mmol/L (8-16); BILIRUBIN - TOTAL 1.51 mg/dL (0.2-1.3); CALCIUM 9.8 mg/dL (8.5-10.1); CARBON DIOXIDE 27.8 mmol/L (21.0-32.0); CREATININE - SERUM 3.4 mg/dL (0.6-1.3); PHOSPHOROUS 2.8 mg/dL (2.5-4.9); POTASSIUM - SERUM 3.6 mmol/L (3.5-5.1); PROTEIN - SERUM 7.3 g/dL (6.4-8.2); VANCOMYCIN - RANDOM 25.8 ug/mL (10.0-20.0)
--- NOTE | 2019-04-06 08:00 | NUR ---
ASSESSED, GENESIS MIJARES, IN FOR NEPHROLOGY-INFORMED K+ 3.6 AND TEMP 99.4- ORDERS REC'D. POSITIONED TO LEFT SIDE BUT AUTOMATICALLY MOVES ONTO BACK DESPITE INSTRUCTION TO STAY OFF BACK.
--- NOTE | 2019-04-06 08:30 | NUR ---
FAMILY IN AND UPDATED.
--- NOTE | 2019-04-06 08:32 | NUR ---
CM SHOWS VTACH- UNRESPONSIVE/ APNEIC. CODE BLUE CALLED- SEE RECORD.
--- NOTE | 2019-04-06 08:39 | NUR ---
NOTIFIED , MONY, OF CODE EVENTS.
--- NOTE | 2019-04-06 09:30 | NUR ---
FAMILY IN AND UPDATED.
--- NOTE | 2019-04-06 09:40 | NUR ---
CM SHOWS VFIB- CODE BLUE CALLED- SEE RECORD.
--- NOTE | 2019-04-06 10:10 | NUR ---
DR MONTES DE OCA IN- ORDERS REC'D.
--- NOTE | 2019-04-06 10:30 | NUR ---
DR RAINEY ROUNDS- ORDERS REC'D.
--- NOTE | 2019-04-06 11:00 | NUR ---
REASSESSED. REMAINS ALERT. VS CURRENTLY STABLE ON 15 MCG LEVO.
--- NOTE | 2019-04-06 11:45 | NUR ---
DR ANTHONY ROUNDS- NO NEW ORDERS.
--- NOTE | 2019-04-06 12:55 | NUR ---
DR MONTES DE OCA NOTIFIED OF 42 RUN SVT DURING WHICH PT REMAINED AWAKE/ALERT & MG+ 1.7- ORDER REC'D.
--- NOTE | 2019-04-06 13:07 | NUR ---
CM SHOWS SVT VS VT- CODE CALLED- SEE RECORD. DR PAN PRESENT AND AWARE EVENTS LAST 12 HRS- ORDERS REC'D.
--- NOTE | 2019-04-06 14:15 | NUR ---
TO COTTON CLASSER AIDE VIA BED ACCOMPANIED BY COTTON CLASSER AIDE STAFF.
--- NOTE | 2019-04-06 15:00 | NUR ---
RETURNS FROM NURSING PROJECT COORDINATOR S/P ANGIOGRAPHY. RT GROIN SITE C/D/I W/O BLEEDING OR HEMATOMA. REASSESSED. (NOTE- DR MONTES DE OCA CONFRERENCED W/ DTRS ABOUT SEVERITY OF CONDITION AND SUGGESTS THAT THEY CONSIDER COMFORT CARE ONLY)
--- NOTE | 2019-04-06 16:00 | NUR ---
LEFT GROIN SITE REMAINS UNCHANGED AND HAS BEEN CHECKED Q 15 MIN WELL LEFT DP PULSE AT 2+.
--- NOTE | 2019-04-06 17:00 | NUR ---
FAMILY REMAINS AT BEDSIDE. CONT ALERT AND TALKING W/FAMILY.
--- NOTE | 2019-04-06 17:47 | NUR ---
CM SHOWS VFIB. FAMILY AT BEDSIDE. VISITED AROUND 1730.
--- NOTE | 2019-04-06 18:37 | NUR ---
PRONOUNCED BY DR CABRERA AFTER DR MAXIM MCDUFFIE.
--- NOTE | 2019-04-06 19:05 | NUR ---
CARE PERFORMED AFTER BODY RELEASED BY PIERRE.
--- NOTE | 2019-04-06 19:25 | NUR ---
notified [facility] in [place] family at bedside, patient
--- NOTE | 2019-04-08 15:15 | MORECARE ---
CASE MANAGEMENT DISCHARGE SUMMARY PATIENT: COLTEN DENG UNIT: [id number] ADM DATE: 04/03/19 AGE: 69 : 48 SEX: M ROOM/BED: D.2307 AUTHOR: ALEXANDRA LONGORIA PHYSICIAN: REFERRING PHYSICIAN: DAJA SINGH MD DATE OF SERVICE: 04/08/19 Discharge Plan Patient Name: COLTEN DENG Facility: [facility]:[place] : 1950 Planned Disposition: [facility] Anticipated Discharge Date: Discharge Date: 04/06/2019 Expected LOS: Initial Reviewer: [email or web address] Initial Review Date: 04/04/2019 Generated: 04/08/19 4:14 pm DCP- Discharge Planning Updated by [email or web address]: Tesha Little on 04/04/19 5:[address] Patient Name: COLTEN DENG Admission Status: Elective Accout number: [id number] Admission Date: 04-03-2019 : 1950 Admission Diagnosis: Attending: Daja Singh Current LOS: 1 Anticipated DC Date: Planned Disposition: [facility] Facility Primary Insurance: MEDICARE A & B Discharge Planning Comments: CM spoke with patient's Lisa via phone after explaining CM role and obtaining verbal consent. Patient is very drowsy and unable to speak with CM. Patient has been at [facility] nursing [facility] Rehab(SNF- Medicare bed) since his last hospital stay and plans to return there upon discharge. Lisa denies any discharge needs at this time. Patient's lives in [place] and she stated that eventually she plans on getting the patient moved there once stable. CM will continue to follow and assist as needed with discharge planning / needs. Electronic Coils Supervisor: Tesha Little DCPIA - Discharge Planning Initial Assessment Updated by [email or web address]: Tesha Little on 04/04/19 5:48 pm * Is the patient Alert and Oriented? Yes * PCP Erendira * Pharmacy [facility] * Preadmission Environment [facility] Facility * Facility Name [facility] * ADLs Partial Dependent * Partial ADLs (Assistance needed) Ambulation Bathing Dressing Eating Medication Management Toileting Transfers * Other Equipment wheelchair, cane, walker * List name and contact numbers for known caregivers / representatives who currently or will assist patient after discharge: Lisa Deng - - [phone] * Verbal permission to speak to the caregivers and representatives has been obtained from the patient. Yes * Community resources currently utilized None * Please name any agencies selected above. [facility] * Additional services required to return to the preadmission environment? No * Can the patient safely return to the preadmission environment? Yes * Has this patient been hospitalized within the prior 30 days at any hospital? Yes Last DP export: 04/04/19 5:43 p Patient Name: COLTEN DENG Page [id number] at 1515 All edits/amendments must be made on the electronic document DICTATION DATE: 04/08/191513 PSYCHOLOGIST RESEARCH ASSISTANT: GENNY 04/08/191513 RPT#: [id number] DC DATE:04/06/19 STATUS: DIS IN [facility] [address] [place] [address] END OF REPORT
== END 2019-04-06 18:37 | DRG 871 ==
LOC: D.ICU 12:03 → D.M2 12:03 → D.ICU 04-04 07:40
PROVIDERS: Family Medicine; Internal Medicine; Orthopaedic Surgery; Specialist; ADMIT Internal Medicine Nephrology; ATTEND Internal Medicine Nephrology
PROC: 06HY33Z Insertion of Infusion Device into Lower Vein, Percutaneous Approach (ICD-10-PCS; 2019-04-04)
PROC: 0S9D3ZZ Drainage of Left Knee Joint, Percutaneous Approach (ICD-10-PCS; principal; 2019-04-04 11:21)
PROC: B2181ZZ Fluoroscopy of Left Internal Mammary Bypass Graft using Low Osmolar Contrast (ICD-10-PCS; 2019-04-06)
PROC: B2151ZZ Fluoroscopy of Left Heart using Low Osmolar Contrast (ICD-10-PCS; 2019-04-06)
PROC: 4A023N7 Measurement of Cardiac Sampling and Pressure, Left Heart, Percutaneous Approach (ICD-10-PCS; 2019-04-06)
DX: A41.9 Sepsis, unspecified organism (principal); N18.6 End stage renal disease; R65.21 Severe sepsis with septic shock; I12.0 Hypertensive chronic kidney disease with stage 5 chronic kidney disease or end stage renal disease; I47.2 Ventricular tachycardia; M00.9 Pyogenic arthritis, unspecified; I70.262 Atherosclerosis of native arteries of extremities with gangrene, left leg; Z99.2 Dependence on renal dialysis; C61 Malignant neoplasm of prostate; K21.9 Gastro-esophageal reflux disease without esophagitis; I48.91 Unspecified atrial fibrillation; E03.9 Hypothyroidism, unspecified; G47.33 Obstructive sleep apnea (adult) (pediatric); E83.39 Other disorders of phosphorus metabolism; I25.10 Atherosclerotic heart disease of native coronary artery without angina pectoris; I49.01 Ventricular fibrillation; I95.9 Hypotension, unspecified; Z89.511 Acquired absence of right leg below knee; E16.2 Hypoglycemia, unspecified; L97.522 Non-pressure chronic ulcer of other part of left foot with fat layer exposed; D63.1 Anemia in chronic kidney disease